=== PATIENT | female | born 1945 | race Caucasian/White ===

== ENCOUNTER → 2017-11-09 18:47 | Outpatient (REF) | payer MEDICARE, OTHER, SELFPAY | LOC: LAB 18:47 | PROVIDERS: Visit Provider Dermatology | DX: L08.9 Local infection of the skin and subcutaneous tissue, unspecified (principal) | CPT/HCPCS: 87070; 87075; 87077; 87147; 87186; 87205 ==

== ENCOUNTER 2018-11-27 10:28 | Emergency (ER) | payer MEDICARE, OTHER, SELFPAY ==
--- NOTE | 2018-11-27 10:43 | ED_ITS ---
HPI - Neuro Symptoms/Deficit General Chief Complaint: Neuro Symptoms/Deficit Stated Complaint: confused,slurring words,hallucinations Time Seen by Provider: 11/27/18 10:40 Source: patient Mode of arrival: Ambulatory Limitations: no limitations History of Present Illness HPI Narrative: Patient is 72-year-old female with history of kidney transplant and diabetes and dementia presenting with confusion. She was recently admitted to [facility] with UTI. Daughter states that those symptoms was resolved. However last 3 days she seems more confused she is definitely hallucinating more. She has not had any fever. She is having frequent follow she has a large contusion over her left breast. Patient currently denies any pain her speech is clear. Daughter states that her speech has been off and on s lurred. Not currently on any blood thinners. Onset (ago): day(s) (3) Timing confirmed by: family member (Daughter) Related Data Home Medications Medication Instructions Recorded Confirmed Lantus U-100 Insulin 30 unit SQ BID #0 10/19/12 11/27/18 acetaminophen 325 mg PO PRN PRN #0 10/19/12 11/27/18 aspirin 81 mg PO DAILY #0 10/19/12 11/27/18 calcium carbonate 500 mg PO TID #0 10/19/12 11/27/18 esomeprazole magnesium [Nexium] 20 mg PO BEDTIME #0 10/19/12 11/27/18 niacin 1,000 mg PO BEDTIME #0 10/19/12 11/27/18 nitrofurantoin macrocrystal 50 mg PO DAILY #0 10/19/12 11/27/18 prednisone 5 mg PO DAILY #0 10/19/12 11/27/18 tacrolimus [Prograf] 2 mg PO BID #0 10/19/12 11/27/18 cefdinir 300 mg PO BID 11/27/18 11/27/18 cholecalciferol (vitamin D3) 1,000 unit PO DAILY 11/27/18 11/27/18 [Vitamin D3] empagliflozin [Jardiance] 10 mg PO DAILY 11/27/18 11/27/18 furosemide 20 mg PO BID 11/27/18 11/27/18 icosapent ethyl [Vascepa] 1 g PO BID 11/27/18 11/27/18 insulin lispro [Humalog KwikPen 0 unit SUBCUT PRN PRN 11/27/18 11/27/18 Insulin] levothyroxine 25 mcg PO DAILY 11/27/18 11/27/18 metoprolol succinate 50 mg PO BID 11/27/18 11/27/18 oxycodone [OxyContin] 10 mg PO Q12H PRN 11/27/18 11/27/18 pravastatin 20 mg PO DAILY 11/27/18 11/27/18 Allergies Allergy/AdvReac Type Severity Reaction Status Date / Time verapamil [VERAPAMIL] Allergy Intermediate RHADOMYOLYS Verified 11/27/18 11:45 IS methadone [METHADONE] Allergy Mild N/V Verified 11/27/18 11:45 propoxyphene [PROPOXYPHENE] Allergy Mild N/V Verified 11/27/18 11:45 Review of Systems Review of Systems ROS Unobtainable: All systems reviewed & are unremarkable except as noted in HPI and below Constitutional Constitutional: Denies chills, Denies fever(s), Reports frequent falls, Denies lethargy and Denies weakness Eyes Eyes: Denies change in vision, Denies eye discharge, Denies irritation and Denies loss of vision Cardiovascular Cardiovascular: Denies dyspnea and Denies dyspnea on exertion Respiratory Respiratory: Denies cough, Denies dyspnea, Denies dyspnea on exertion and Denies wheezing Gastrointestinal Gastrointestinal: Denies abdominal pain, Denies change in bowel habits, Denies diarrhea, Denies nausea and Denies vomiting Genitourinary Genitourinary: Denies hematuria, Denies flank pain, Denies urinary incontinence and Denies urinary urgency Musculoskeletal Musculoskeletal: Denies back pain, Denies muscle weakness, Denies numbness and Denies tingling Integumentary/Breasts Skin/Breast: Reports rash (previous cellulitis, now right leg some redness) Neurologic Neurologic: Reports as per HPI, Reports confusion, Reports frequent falls, Denies loss of vision, Denies numbness, Denies tingling and Denies weakness Psychiatric Psychiatric: Reports confusion Allergic/Immunologic Allergic/Immunologic: Denies wheezing [facility] Medical History Diabetes (Acute) Surgical History Kidney transplant recipient (Acute) Social History Smoking Status: Never smoker Social History Smoking Status: Never smoker Exam Initial Vital Signs Initial Vital Signs: Vital Signs Temperature 98.0 F 11/27/18 10:45 Pulse Rate 64 11/27/18 10:45 Respiratory Rate 14 11/27/18 10:45 Blood Pressure 125/67 11/27/18 10:45 Pulse Oximetry 100 11/27/18 10:45 GENERAL: Alert pleasant well-appearing female HEENT: Head atraumatic,EOMI, pupils reactive, face symmetric, moist mucous membranes CARDIOVASCULAR: Regular rate and rhythm without murmurs, rubs or gallops. RESPIRATORY: Breath sounds equal bilaterally, no wheezes rales or rhonchi. ABDOMEN: Soft, nontender. Normoactive bowel sounds all 4 quadrants. No guarding or rebound. EXTREMITIES: Normal range of motion, no clubbing or edema. Neurovascularly intact NEUROLOGICAL: Alert and oriented x person and place.Normal gait and speech. Cranial nerves II through XII grossly intact. Good [id number], good [id number], strength equal bilaterally, no dysarthria or aphasia, sensation in tact to soft touch bilaterally, no visual changes, no facial droop SKIN: Minimal erythema 100 on right leg no streaking, bullae noticed on the left anterior العلي Course Orders Ordered: ED Orders 11/27/18 10:43 EKG-12 Lead Routine 11/27/18 11:00 Complete Blood Count AUTO DIFF Stat 11/27/18 11:01 CT head/brain wo con Stat 11/27/18 11:02 XR chest 1V Stat 11/27/18 11:03 Partial Thromboplastin Time Stat Prothrombin Time INR Stat 11/27/18 11:35 Acetaminophen Stat Comprehensive Metabolic Panel Stat Ethanol (ETOH) Stat Lactate (Lactic Acid) Stat Salicylate Stat Thyroid Stimulating Hormone Stat Troponin & CK Cardiac Panel Stat 11/27/18 12:00 Urine Culture Stat Urine Drug Screen, Rapid Stat 11/27/18 12:10 Blood Culture Stat 11/27/18 13:58 Glucose Stat Discontinued Medications Sodium Chloride (Normal Saline 0.9%) 1,000 mls @ 150 mls/hr IV CONT HUEY Last Infusion: 11/27/18 14:42 Dose: 0 mls/hr Documented by: SYLSENElvira Admin: 11/27/18 11:46 Dose: 150 mls/hr Documented by: MEENAKSHI Insulin Human Regular (Humulin R) 10 unit SUBCUT NOW ONE Stop: 11/27/18 12:34 Last Admin: 11/27/18 13:09 Dose: 10 unit Documented by: MEENAKSHI Cosigned by: BRET Vital Signs Vital signs: Vital Signs - 8 hr 11/27/18 10:45 11/27/18 12:21 11/27/18 13:33 Temperature 98.0 F Pulse Rate 64 59 L 55 L Respiratory Rate 14 16 13 Blood Pressure 125/67 Blood Pressure [Left Arm] 130/56 L 136/54 L Pulse Oximetry 100 100 96 11/27/18 14:31 Temperature Pulse Rate 57 L Respiratory Rate 15 Blood Pressure Blood Pressure [Left Arm] 146/56 H Pulse Oximetry 100 MDM - Neuro Symptoms/Deficit Medical Records Attestation: I reviewed the patient's medical records. Lab Data Attestation: I reviewed the patient's lab results. Lab results narrative: anion gap 17 Result diagrams: 11/27/18 11:00 11/27/18 13:58 Labs: Lab Results 11/27/18 11/27/18 11/27/18 Range/Units 11:00 11:03 11:35 WBC 11.4 H (4.5-11.0) X10^3/uL RBC 4.03 (4.0-5.2) X10^6/uL Hgb 12.9 (12.0-16.0) g/dL Hct 39.2 (36-46) % MCV 97.4 (80-100) fL MCH 31.9 (26-34) PG MCHC 32.8 (30-36) % RDW 16.9 H (11.6-14.8) % Plt Count 90 L (150-400) X10^3/uL Neut % (Auto) 85.7 H (50-75) % Lymph % (Auto) 9.9 L (25-40) % [place] % (Auto) 4.0 (3-14) % Eos % (Auto) 0.2 L (2-4) % Baso % (Auto) 0.2 (0-2) % Neut # (Auto) 9800 H (5854-1985) /uL Lymph # (Auto) 1100 (7421-4418) /uL [place] # (Auto) 500 (0-900) /uL Eos # (Auto) 0 (0-450) /uL Baso # (Auto) 0 (0-100) /uL PT 12.7 (10.1-12.7) SECONDS INR 1.1 (0.9-1.3) APTT 30 (26.4-36.2) SECONDS Sodium 130 L (137-145) mmol/L Potassium 4.4 (3.4-5.1) mmol/L Chloride 93 L (98-107) mmol/L Carbon Dioxide 23 (22-32) mmol/L BUN 56 H (7-17) mg/dL Creatinine 2.10 H (0.52-1.04) mg/dL Estimated GFR 23.2 L (>60) mL/min BUN/Creatinine Ratio 26.7 H (6-22) Glucose 608 H* (80-110) mg/dL Lactate (0.7-2.1) mmol/L Calcium 9.3 (8.4-10.2) mg/dL Total Bilirubin 1.6 H (0.2-1.3) mg/dL AST 37 H (14-36) IU/L ALT 229 H (9-52) IU/L Alkaline Phosphatase 120 (38-126) U/L Total Creatine Kinase (30-135) U/L CK-MB (CK-2) CK-MB (CK-2) Rel Index Troponin I (0.01-0.034) ng/mL Total Protein 6.1 L (6.3-8.2) g/dL Albumin 3.2 L (3.5-5.0) g/dL Globulin 2.9 (1.7-4.1) g/dL Albumin/Globulin Ratio 1.1 (1.0-2.8) TSH (0.47-4.68) uIU/mL Salicylates 2.3 (<20) mg/dL Urine Opiates Screen (Negative) Ur Oxycodone Screen (Negative) Urine Methadone Screen (Negative) Acetaminophen < 10 L (10-30) ug/mL Ur Barbiturates Screen (Negative) U Tricyclic Antidepress (Negative) Ur Phencyclidine Scrn (Negative) Ur Amphetamines Screen (Negative) U Methamphetamines Scrn (Negative) Ur MDMA Scrn (Ecstasy) (Negative) U Benzodiazepines Scrn (Negative) Urine Cocaine Screen (Negative) U Marijuana (THC) Screen (Negative) Ethyl Alcohol < 10 ( - 10) mg/dL 11/27/18 11/27/18 11/27/18 Range/Units 11:35 11:35 11:35 WBC (4.5-11.0) X10^3/uL RBC (4.0-5.2) X10^6/uL Hgb (12.0-16.0) g/dL Hct (36-46) % MCV (80-100) fL MCH (26-34) PG MCHC (30-36) % RDW (11.6-14.8) % Plt Count (150-400) X10^3/uL Neut % (Auto) (50-75) % Lymph % (Auto) (25-40) % [place] % (Auto) (3-14) % Eos % (Auto) (2-4) % Baso % (Auto) (0-2) % Neut # (Auto) (8468-6600) /uL Lymph # (Auto) (1894-2000) /uL [place] # (Auto) (0-900) /uL Eos # (Auto) (0-450) /uL Baso # (Auto) (0-100) /uL PT (10.1-12.7) SECONDS INR (0.9-1.3) APTT (26.4-36.2) SECONDS Sodium (137-145) mmol/L Potassium (3.4-5.1) mmol/L Chloride (98-107) mmol/L Carbon Dioxide (22-32) mmol/L BUN (7-17) mg/dL Creatinine (0.52-1.04) mg/dL Estimated GFR (>60) mL/min BUN/Creatinine Ratio (6-22) Glucose (80-110) mg/dL Lactate 1.8 (0.7-2.1) mmol/L Calcium (8.4-10.2) mg/dL Total Bilirubin (0.2-1.3) mg/dL AST (14-36) IU/L ALT (9-52) IU/L Alkaline Phosphatase (38-126) U/L Total Creatine Kinase 64 (30-135) U/L CK-MB (CK-2) TNP CK-MB (CK-2) Rel Index TNP Troponin I 0.024 (0.01-0.034) ng/mL Total Protein (6.3-8.2) g/dL Albumin (3.5-5.0) g/dL Globulin (1.7-4.1) g/dL Albumin/Globulin Ratio (1.0-2.8) TSH 3.14 (0.47-4.68) uIU/mL Salicylates (<20) mg/dL Urine Opiates Screen (Negative) Ur Oxycodone Screen (Negative) Urine Methadone Screen (Negative) Acetaminophen (10-30) ug/mL Ur Barbiturates Screen (Negative) U Tricyclic Antidepress (Negative) Ur Phencyclidine Scrn (Negative) Ur Amphetamines Screen (Negative) U Methamphetamines Scrn (Negative) Ur MDMA Scrn (Ecstasy) (Negative) U Benzodiazepines Scrn (Negative) Urine Cocaine Screen (Negative) U Marijuana (THC) Screen (Negative) Ethyl Alcohol ( - 10) mg/dL 11/27/18 11/27/18 Range/Units 12:00 13:58 WBC (4.5-11.0) X10^3/uL RBC (4.0-5.2) X10^6/uL Hgb (12.0-16.0) g/dL Hct (36-46) % MCV (80-100) fL MCH (26-34) PG MCHC (30-36) % RDW (11.6-14.8) % Plt Count (150-400) X10^3/uL Neut % (Auto) (50-75) % Lymph % (Auto) (25-40) % [place] % (Auto) (3-14) % Eos % (Auto) (2-4) % Baso % (Auto) (0-2) % Neut # (Auto) (0717-8524) /uL Lymph # (Auto) (8938-7165) /uL [place] # (Auto) (0-900) /uL Eos # (Auto) (0-450) /uL Baso # (Auto) (0-100) /uL PT (10.1-12.7) SECONDS INR (0.9-1.3) APTT (26.4-36.2) SECONDS Sodium (137-145) mmol/L Potassium (3.4-5.1) mmol/L Chloride (98-107) mmol/L Carbon Dioxide (22-32) mmol/L BUN (7-17) mg/dL Creatinine (0.52-1.04) mg/dL Estimated GFR (>60) mL/min BUN/Creatinine Ratio (6-22) Glucose 560 H* (80-110) mg/dL Lactate (0.7-2.1) mmol/L Calcium (8.4-10.2) mg/dL Total Bilirubin (0.2-1.3) mg/dL AST (14-36) IU/L ALT (9-52) IU/L Alkaline Phosphatase (38-126) U/L Total Creatine Kinase (30-135) U/L CK-MB (CK-2) CK-MB (CK-2) Rel Index Troponin I (0.01-0.034) ng/mL Total Protein (6.3-8.2) g/dL Albumin (3.5-5.0) g/dL Globulin (1.7-4.1) g/dL Albumin/Globulin Ratio (1.0-2.8) TSH (0.47-4.68) uIU/mL Salicylates (<20) mg/dL Urine Opiates Screen Negative (Negative) Ur Oxycodone Screen Positive H (Negative) Urine Methadone Screen Negative (Negative) Acetaminophen (10-30) ug/mL Ur Barbiturates Screen Negative (Negative) U Tricyclic Antidepress Negative (Negative) Ur Phencyclidine Scrn Negative (Negative) Ur Amphetamines Screen Negative (Negative) U Methamphetamines Scrn Negative (Negative) Ur MDMA Scrn (Ecstasy) Negative (Negative) U Benzodiazepines Scrn Negative (Negative) Urine Cocaine Screen Negative (Negative) U Marijuana (THC) Screen Negative (Negative) Ethyl Alcohol ( - 10) mg/dL Urine Dip Bedside Urine Glucose 1000 mg/dl Bedside Urine Bilirubin - Negative Bedside Urine Ketone - Negative Urine Specific [place] 1.010 Bedside Urine Occult Blood +/- Bedside Urine pH 5.5 Bedside Urine Protein +/- 15 Bedside Urine Urobilinogen - Negative Bedside Urine Nitrite - Negative Bedside Urine Leukocytes - Negative Esterase Imaging Data Chest x-ray: Radiologist's impression: PROCEDURE: XR CHEST 1V INDICATIONS: confusion TECHNIQUE: One view of the chest was acquired. COMPARISON: [facility], , CHEST 1 VIEW, 06/13/2014, 13:55. FINDINGS: Surgical changes and devices: Multiple surgical clips in the right axilla and right breast. Lungs and pleura: Lungs are clear. No pleural effusions or pneumothorax. Mediastinum: Mediastinal contours appear normal. Heart size is mildly increased. Bones and chest wall: No suspicious bony lesions. Overlying soft tissues appear unremarkable. IMPRESSION: Mild cardiomegaly. Dictated by: Farooq Cook M.D. on 11/27/2018 at 11:26 ECG Data Attestation: I personally reviewed and interpreted this ECG as follows: Prior ECG tracings: not available for review Interpretation: Normal sinus rhythm rate [address] changes no T-wave inversions no Q-waves no priors to compare MDM Narrative Medical decision making narrative: The patient has minimally elevated anion gap but no signs or symptoms of DKA. She has elevated glucose and hyperglycemia likely from uncontrolled diabetes. At this time no sign of infection head CT is negative. No indication for admission. She is given some fluid and insulin subcu. Repeat glucose is minimally improved. A suspect that she is chronically hyperglycemic although her hyperglycemia may be causing some of her symptoms. Discharge Plan Departure Patient Disposition: Home Clinical Impression: Hyperglycemia Discharge Date/Time: 11/27/18 14:42 Instructions: DI for Diabetes Type 2 Activity Restrictions/Additional Instructions: *You have been diagnosed with hyperglycemia *What to do: Uncontrolled diabetes can lead to elevated blood sugars and can attribute to confusion. It is recommended that you control blood sugars with medications and take them as prescribed. You may need adjustment in her medications please discuss this with your primary care provider before making any changes *Continue to take medications as directed *Follow up with your primary care provider in 2-3 days *Return to ER if you should have increased confusion, weakness, difficulty speaking, fever or any new, worsening or concerning symptoms Prescriptions: No Action acetaminophen 325 mg Tablet 325 mg PO PRN PRN (Reason: pain) Qty: 0 RF: 0 Lantus U-100 Insulin 100 UNIT/1 ML solution 30 unit SQ BID Qty: 0 RF: 0 aspirin 81 MG tablet,delayed release (DR/EC) 81 mg PO DAILY Qty: 0 RF: 0 calcium carbonate 500 mg calcium (1,250 mg) Tablet 500 mg PO TID Qty: 0 RF: 0 tacrolimus [Prograf] 1 MG capsule 2 mg PO BID Qty: 0 RF: 0 esomeprazole magnesium [Nexium] 20 mg Capsule,Delayed Release(Dr/Ec) 20 mg PO BEDTIME Qty: 0 RF: 0 niacin 1,000 mg Tablet Extended Release 1,000 mg PO BEDTIME Qty: 0 RF: 0 nitrofurantoin macrocrystal 50 MG capsule 50 mg PO DAILY Qty: 0 RF: 0 prednisone 5 MG tablet 5 mg PO DAILY Qty: 0 RF: 0 metoprolol succinate 50 mg tablet extended release 24 hr 50 mg PO BID RF: 0 levothyroxine 25 mcg tablet 25 mcg PO DAILY RF: 0 pravastatin 20 mg tablet 20 mg PO DAILY RF: 0 furosemide 20 mg tablet 20 mg PO BID RF: 0 cefdinir 300 mg capsule 300 mg PO BID RF: 0 insulin lispro [Humalog KwikPen Insulin] 100 unit/mL insulin pen 0 unit SUBCUT PRN PRN (Reason: blood sugar) RF: 0 Vascepa 1 gram capsule 1 g PO BID RF: 0 Jardiance 10 mg tablet 10 mg PO DAILY RF: 0 oxycodone [OxyContin] 10 mg tablet,oral only,ext.rel.12 hr 10 mg PO Q12H PRN (Reason: Pain, Severe) RF: 0 cholecalciferol (vitamin D3) [Vitamin D3] 1,000 unit Capsule 1,000 unit PO DAILY RF: 0 Referrals: Ary Denton PA-C [Primary Care Provider] -
[2018-11-27 10:45] VITALS: BP 125/67; PULSE 64; RESP 14; TEMP 36.7; O2SAT 100
--- NOTE | 2018-11-27 11:01 | DI.CT.S_ITS ---
PROCEDURE: CT HEAD/BRAIN WO CON INDICATIONS: frequent falls and confusion TECHNIQUE: Noncontrast 4.5 mm thick angled axial sections acquired from the foramen magnum to the vertex, with coronal and sagittal reformats. For radiation dose reduction, the following was used: automated exposure control, adjustment of mA and/or kV according to patient size. COMPARISON: [facility], MR, MR BRAIN WITHOUT CONTRAST, 11/14/2018, 14:07. FINDINGS: Image quality: Excellent. CSF spaces: Basal cisterns are patent. No extra-axial fluid collections. The ventricles are symmetric in size and shape. Brain: No intracranial bleeds or masses. Small chronic bilateral basal ganglia infarcts are present, as before. There is cerebral volume loss for age, with resultant ventricular and sulcal prominence. There are periventricular and deep white matter chronic small vessel ischemic changes. There is intracranial internal carotid artery atherosclerosis. Skull and face: Calvarium and visualized facial bones appear intact, without suspicious lesions. Sinuses: Visualized sinuses and mastoids are clear. IMPRESSION: 1. No acute intracranial abnormality. 2. Volume loss and small vessel ischemic disease. 3. Small chronic bilateral basal ganglia infarcts. Dictated by: Javier Holcomb M.D. on 11/27/2018 at 11:19 Approved by: Javier Holcomb M.D. on 11/27/2018 at 11:20
--- NOTE | 2018-11-27 11:02 | DI.RAD.S_ITS ---
PROCEDURE: XR CHEST 1V INDICATIONS: confusion TECHNIQUE: One view of the chest was acquired. COMPARISON: [facility], , CHEST 1 VIEW, 06/13/2014, 13:55. FINDINGS: Surgical changes and devices: Multiple surgical clips in the right axilla and right breast. Lungs and pleura: Lungs are clear. No pleural effusions or pneumothorax. Mediastinum: Mediastinal contours appear normal. Heart size is mildly increased. Bones and chest wall: No suspicious bony lesions. Overlying soft tissues appear unremarkable. IMPRESSION: Mild cardiomegaly. Dictated by: Farooq Cook M.D. on 11/27/2018 at 11:26 Approved by: Farooq Cook M.D. on 11/27/2018 at 11:27
--- NOTE | 2018-11-27 11:12 | PC.NURSE ---
daughter reports, pt with increase in confusion, +hallucinations,+slurred speech, the last 3 days, also has hx of dementia. just dc from [facility] on the . denies fever,chills, denies nausea or vomiting. pt able to make urine. also daughter concern for cellulitis , right lower leg. reports, pt with fall x3 in the last month. noted echymosis bluish/purple left breast.
[2018-11-27 11:15] LABS: Add Manual Diff / Slide Review NO; Basophils Absolute Auto 0 /uL (0-100); Basophils Percent Auto 0.2 % (0-2); Eosinophils Absolute Auto 0 /uL (0-450); Eosinophils Percent Auto 0.2 % (2-4); Hematocrit 39.2 % (36-46); Hemoglobin 12.9 g/dL (12.0-16.0); Lymphocytes Absolute Auto 1100 /uL (1100-4500); Lymphocytes Percent Auto 9.9 % (25-40); Mean Corpuscular HGB Conc 32.8 % (30-36); Mean Corpuscular Hemoglobin 31.9 PG (26-34); Mean Corpuscular Volume 97.4 fL (80-100); Monocytes Absolute Auto 500 /uL (0-900); Neutrophils Absolute Auto 9800 /uL (1500-7000); Neutrophils Percent Auto 85.7 % (50-75); Platelet Count 90 X10^3/uL (150-400); Red Blood Cell Count 4.03 X10^6/uL (4.0-5.2); Red Cell Distribution Width 16.9 % (11.6-14.8); White Blood Cell Count 11.4 X10^3/uL (4.5-11.0)
[2018-11-27 11:21] LABS: INR 1.1 (0.9-1.3); Prothrombin Time 12.7 SECONDS (10.1-12.7)
[2018-11-27 11:23] LABS: PTT Partial Thromboplastin Tim 30 SECONDS (26.4-36.2)
[2018-11-27] MEDS: SODIUM CHLORIDE 0.9% 1,000 ML 150 ML IV (11:46)
[2018-11-27 12:01] LABS: Creatine Kinase 64 U/L (30-135)
[2018-11-27 12:02] LABS: Lactate (Lactic Acid) 1.8 mmol/L (0.7-2.1)
[2018-11-27 12:03] LABS: Acetaminophen < 10 ug/mL (10-30); Alanine Aminotransferase 229 IU/L (9-52); Albumin 3.2 g/dL (3.5-5.0); Albumin Globulin Ratio 1.1 (1.0-2.8); Alkaline Phosphatase 120 U/L (38-126); Aspartate Aminotransferase 37 IU/L (14-36); BUN Creatinine Ratio 26.7 (6-22); Bilirubin Total 1.6 mg/dL (0.2-1.3); Blood Urea Nitrogen 56 mg/dL (7-17); Calcium 9.3 mg/dL (8.4-10.2); Carbon Dioxide 23 mmol/L (22-32); Chloride 93 mmol/L (98-107); Estimated Glomerular Filt Rate 23.2 mL/min (>60); Ethanol (ETOH) < 10 mg/dL; Globulin 2.9 g/dL (1.7-4.1); HEMOLYSIS < 15 (0-50); Potassium 4.4 mmol/L (3.4-5.1); Salicylate 2.3 mg/dL (<20); Sodium 130 mmol/L (137-145); Total Protein 6.1 g/dL (6.3-8.2)
[2018-11-27 12:06] LABS: Glucose 608 mg/dL (80-110)
[2018-11-27 12:11] LABS: Urine Amphetamines Negative (Negative); Urine Barbiturates Negative (Negative); Urine Benzodiazepines Negative (Negative); Urine Cocaine Negative (Negative); Urine MDMA Negative (Negative); Urine Methadone Negative (Negative); Urine Methamphetamines Negative (Negative); Urine Morphine/Opi cutoff 2000 Negative (Negative); Urine Oxycodone Positive (Negative); Urine Phencyclidine Negative (Negative); Urine Tetrahydrocannabinol Negative (Negative); Urine Tricyclic Antidepressant Negative (Negative)
[2018-11-27 12:14] LABS: Troponin I 0.024 ng/mL (0.01-0.034)
[2018-11-27 12:21] VITALS: BP 130/56; PULSE 59; RESP 16; O2SAT 100
[2018-11-27 12:36] LABS: Thyroid Stimulating Hormone 3.14 uIU/mL (0.47-4.68)
[2018-11-27] MEDS: INSULIN REGULAR 100 UNIT/ML 3 ML VIAL 10 UNIT SUBCUT (13:09)
[2018-11-27 13:33] VITALS: BP 136/54; PULSE 55; RESP 13; O2SAT 96
[2018-11-27 14:31] VITALS: BP 146/56; PULSE 57; RESP 15; O2SAT 100
[2018-11-27 14:32] LABS: Glucose 560 mg/dL (80-110)
== END 2018-11-27 14:42 | disposition home or self-care (01) ==
PROVIDERS: Emergency Provider Emergency Medicine; PCP Physician Assistant
DX: R73.9 Hyperglycemia, unspecified (principal); R41.0 Disorientation, unspecified; R47.81 Slurred speech
CPT/HCPCS: 36415; 70450; 71045; 80053; 80305; 80320; 80329; 81003; 82550; 82947; 82962; 83605; 84443; 84484; 85025; 85610; 85730; 87040; 87086; 93005; 93010; 96360; 96361; 99283; 99285; G0480

== ENCOUNTER 2019-09-29 17:06 | Inpatient (IN) | payer MEDICARE, OTHER, MEDICAID, SELFPAY ==
[2019-09-29] VITALS (15 sets, daily range): BP systolic 132–172; BP diastolic 53–84; PULSE 59–72; RESP 12–44; TEMP 36.2–36.8; O2SAT 95–100; BMI 33.4
--- NOTE | 2019-09-29 17:27 | DI.RAD.S_ITS ---
PROCEDURE: XR FOOT RT MIN 3V INDICATIONS: right foot infection, red/swollen + diabetic. TECHNIQUE: 3 views of the foot were acquired. COMPARISON: None. FINDINGS: Examination is limited by overlying material. Bones: Diffuse osteopenia. No fractures or dislocations. No suspicious bony lesions. Soft tissues: No tibiotalar joint effusion. Achilles tendon appears normal. IMPRESSION: Limited evaluation demonstrating no definite acute fracture nor osseous lesion. If symptoms and/or clinical suspicion for pathology persist, further assessment with repeat, or advanced imaging (e.g., CT, MRI, or bone scan) may be helpful for further assessment. Dictated by: Javier Holcomb M.D. on 09/29/2019 at 16:44 Approved by: Javier Holcomb M.D. on 09/29/2019 at 16:45
--- NOTE | 2019-09-29 17:36 | PC.NURSE ---
Pt is poor historian and does not know what meds she takes nor when she took them last. She states foot / toe has been swollen w/ wounds x a week at least. She denies fever / chills. 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 Right sided mastectomy. IV placed in right arm r/t fistula. BP cuff on left wrist. Unable to palpate pedal pulses. Doppler provided for provider. + Calf pain on right.
[2019-09-29 17:37] LABS: Add Manual Diff / Slide Review NO; Basophils Absolute Auto 100 /uL (0-100); Basophils Percent Auto 0.8 % (0-2); Eosinophils Absolute Auto 100 /uL (0-450); Eosinophils Percent Auto 1.2 % (2-4); Hematocrit 37.1 % (36-46); Hemoglobin 12.5 g/dL (12.0-16.0); Lymphocytes Absolute Auto 1100 /uL (1100-4500); Lymphocytes Percent Auto 14.5 % (25-40); Mean Corpuscular HGB Conc 33.8 % (30-36); Mean Corpuscular Hemoglobin 30.6 PG (26-34); Mean Corpuscular Volume 90.4 fL (80-100); Monocytes Absolute Auto 500 /uL (0-900); Monocytes Percent Auto 6.2 % (3-14); Neutrophils Absolute Auto 5800 /uL (1500-7000); Neutrophils Percent Auto 77.3 % (50-75); Platelet Count 91 X10^3/uL (150-400); Red Cell Distribution Width 15.4 % (11.6-14.8); White Blood Cell Count 7.6 X10^3/uL (4.5-11.0)
[2019-09-29 17:38] LABS: INR 1.1 (0.9-1.3); Prothrombin Time 12.8 SECONDS (10.1-12.7)
[2019-09-29 17:41] LABS: PTT Partial Thromboplastin Tim 30 SECONDS (26.4-36.2)
[2019-09-29 17:43] LABS: Alanine Aminotransferase 11 IU/L (<35); Albumin 3.5 g/dL (3.5-5.0); Albumin Globulin Ratio 1.1 (1.0-2.8); Alkaline Phosphatase 96 U/L (38-126); Aspartate Aminotransferase 19 IU/L (14-36); BUN Creatinine Ratio 18.8 (6-22); Bilirubin Total 1.8 mg/dL (0.2-1.3); Blood Urea Nitrogen 43 mg/dL (7-17); Calcium 9.3 mg/dL (8.4-10.2); Carbon Dioxide 30 mmol/L (22-32); Chloride 98 mmol/L (98-107); Estimated Glomerular Filt Rate 20.9 mL/min (>60); Globulin 3.3 g/dL (1.7-4.1); Glucose 321 mg/dL (80-110); HEMOLYSIS < 15 (0-50); Lactate (Lactic Acid) 1.3 mmol/L (0.7-2.1); Lipase 37 U/L (23-300); Potassium 4.2 mmol/L (3.4-5.1); Sodium 134 mmol/L (137-145); Total Protein 6.8 g/dL (6.3-8.2)
--- NOTE | 2019-09-29 17:43 | DI.US.S_ITS ---
PROCEDURE: US PERIPH VENOUS LOW EXTREM RT INDICATIONS: R leg swelling / sepsis / pain in calf TECHNIQUE: Real-time imaging, as well as color and pulse Doppler interrogation, were performed of the lower extremity deep veins from the inguinal ligament to the popliteal fossa. COMPARISON: None. FINDINGS: The common femoral, femoral and popliteal veins are normally compressible, and free of intraluminal thrombus. Color and pulse Doppler demonstrate normal phasic intraluminal flow. There is normal augmentation response to distal compression maneuver. IMPRESSION: No evidence of DVT in visualized right lower extremity veins. Dictated by: Bobby De M.D. on 09/29/2019 at 18:35 Approved by: Bobby De M.D. on 09/29/2019 at 18:37
--- NOTE | 2019-09-29 17:43 | DI.US.S_ITS ---
PROCEDURE: US RENAL TRANSPLANT INDICATIONS: R leg swelling / sepsis / pain in calf TECHNIQUE: Real time scanning was performed of the transplant kidney, followed by color and pulsed Doppler interrogation of the renal vessels. COMPARISON: None. FINDINGS: Polanco-scale imaging: Transplant kidney is 10.6 cm long; renal cortical thickness is 1.2 cm. No hydronephrosis. Renal cortex is normal in echogenicity. No perinephric fluid collections. Bilateral [place] kidneys are not well visualized on this study. Bladder: Bladder is not visualized due to patient position. IMPRESSION: Limited evaluation performed at bedside . Bilateral [place] kidneys and urinary bladder are not well visualized. Transplant kidney is seen in right lower quadrant and show no gross abnormality. Dictated by: Bobby De M.D. on 09/29/2019 at 18:37 Approved by: Bobby De M.D. on 09/29/2019 at 18:39
--- NOTE | 2019-09-29 18:17 | ED.WOUNDLAC ---
HPI - Wound/Laceration General Chief Complaint: Wound/Laceration Stated Complaint: right foot big toe, toe nail ripped back, wound Time Seen by Provider: 09/29/19 18:07 Source: patient and family Mode of arrival: Family Vehicle History of Present Illness HPI narrative: Patient is a 73-year-old female. On initial evaluation patient states she does not know why she is here in the emergency department. She states she does know she is in the hospital on [address]. Patient states that she thinks that her daughter called the paramedics to bring her into the emergency department. Patient states she does not know why she was brought here. She does state that her right foot hurts. I did talk with the patient's daughter over the phone who stated that the patient does have a history of ?Alzheimer's ?she states that the patient does live on her own however it is in a house that is on her daughter's property and so her daughter checks on her regularly. Her daughter stated that today she went to check on her mother. She made her mom take off her socks and noticed that her right foot is swollen and red and has a right great toenail injury. Patient's daughter states that the right foot had a very foul smell to it. She states that there were ?maggots ?on the right foot. She states they wash the foot prior to bring her here to the emergency department. Patient's daughter states that she did not arrive by paramedics but she did arrive by private vehicle. She is concerned about an infection. Related Data Home Medications Medication Instructions Recorded Confirmed Lantus U-100 Insulin 60 unit SQ DAILY #0 10/19/12 09/29/19 acetaminophen 325 mg PO PRN PRN #0 10/19/12 09/29/19 aspirin 81 mg PO DAILY #0 10/19/12 09/29/19 calcium carbonate 500 mg PO DAILY #0 10/19/12 09/29/19 esomeprazole magnesium [Nexium] 20 mg PO BEDTIME #0 10/19/12 09/29/19 nitrofurantoin macrocrystal 50 mg PO DAILY #0 10/19/12 09/29/19 prednisone 5 mg PO DAILY #0 10/19/12 09/29/19 tacrolimus [Prograf] 2 mg PO BID #0 10/19/12 09/29/19 empagliflozin [Jardiance] 10 mg PO DAILY 11/27/18 09/29/19 furosemide 20 mg PO BID 11/27/18 09/29/19 icosapent ethyl [Vascepa] 1 g PO BID 11/27/18 09/29/19 levothyroxine 25 mcg PO DAILY 11/27/18 09/29/19 pravastatin 20 mg PO DAILY 11/27/18 09/29/19 insulin lispro [Humalog U-100 20 unit SUBCUT DAILY 09/29/19 09/29/19 Insulin] metoprolol succinate 25 mg PO BID 09/29/19 09/29/19 oxycodone 5 mg PO TID PRN 09/29/19 09/29/19 oxycodone [OxyContin] 10 mg PO BEDTIME 09/29/19 09/29/19 sertraline 25 mg PO DAILY 09/29/19 09/29/19 Allergies Allergy/AdvReac Type Severity Reaction Status Date / Time verapamil [VERAPAMIL] Allergy Intermediate RHADOMYOLYS Verified 09/29/19 17:17 IS methadone [METHADONE] Allergy Mild N/V Verified 09/29/19 17:17 propoxyphene [PROPOXYPHENE] Allergy Mild N/V Verified 09/29/19 17:17 morphine Allergy Verified 09/29/19 17:17 Review of Systems Review of Systems Narrative: The positive review of systems here was provided by the patient's daughter. The patient only reports pain to the right foot. Constitutional Constitutional: Denies fever(s) Musculoskeletal Comments: Pain to the right foot, Integumentary/Breasts Comments: Redness and swelling to the right foot. Neurologic Neurologic: Denies behavioral changes Psychiatric Psychiatric: Denies behavioral changes Hematologic/Lymphatic Hematologic/Lymphatic: Denies easy bleeding and Denies easy bruising Patient History Medical History ISMAEL (acute kidney injury) (Acute) Cellulitis (Acute) Diabetes type 2, uncontrolled (Chronic) Diarrhea (Acute) Essential hypertension (Chronic) Hypertriglyceridemia (Chronic) Hypothyroid (Chronic) Surgical History H/O right mastectomy (Acute) Kidney transplant recipient (Chronic) Family History (Updated 09/29/19 @ 23:39 by VIKTOR Lujan) Father Old age Other Renal failure Social History household members: none Smoking Status: Never smoker Smoking Status: Never smoker alcohol intake frequency: 0-2 drinks per day Substance Use Type: does not use Exam Initial Vital Signs Initial Vital Signs: Vital Signs Temperature 98.2 F 09/29/19 17:12 Pulse Rate 70 09/29/19 17:12 Respiratory Rate 15 09/29/19 17:12 Blood Pressure 147/67 H 09/29/19 17:12 Pulse Oximetry 98 09/29/19 17:12 Const General: cooperative and comfortable HENMT Head: normal to inspection and normocephalic Resp Effort & Inspection: normal respiratory effort Auscultation: clear to auscultation bilaterally Cardio Rate: regular rate Rhythm: regular rhythm GI Inspection: non-distended Palpation: soft Skin Other: Patient has swelling to the right foot circumferentially up to the mid calf. Redness anteriorly in the mid calf. Patient's right great toenail is bent backwards however this does not appear to be a new injury. There is a foul smell to the right foot. No open wounds noted. Neuro General: patient alert, patient awake and moves all extremities Extrem Other: Pain with movement of the right ankle. Psych Appearance: grossly normal and well kempt Course Orders Ordered: Acetaminophen (Tylenol) 650 mg PO Q6HR [facility] Last Admin: 09/29/19 23:49 Dose: Not Given Documented by: CATIE Aspirin (Aspirin Ec) 81 mg PO DAILY [facility] Dextrose (D50w) 25 gm IV PRN PRN PRN Reason: Hypoglycemia Docusate Sodium (Colace) 100 mg PO BID [facility] Last Admin: 09/29/19 22:46 Dose: 100 mg Documented by: LINETTE Heparin Sodium (Porcine) (Heparin) 5,000 unit SUBCUT BID [facility] Last Admin: 09/29/19 22:47 Dose: 5,000 unit Documented by: LINETTE Sodium Chloride (Normal Saline 0.9%) 1,000 mls @ 150 mls/hr IV CONT [facility] Last Admin: 09/29/19 22:47 Dose: 150 mls/hr Documented by: Infusion: 09/29/19 22:47 Dose: 150 mls/hr Documented by: Infusion: 09/29/19 21:45 Dose: 150 mls/hr Documented by: Admin: 09/29/19 20:12 Dose: 150 mls/hr Documented by: DARIA Vancomycin HCl/Dextrose (Vancomycin) 1,500 mg in 300 mls @ 150 mls/hr IV Q48H [facility] Ceftriaxone Sodium/Dextrose (Rocephin) 1 gm in 50 mls @ 100 mls/hr IV Q24H [facility] Insulin Aspart (Novolog Flexpen) 0 unit SUBCUT ACHS [facility]; Protocol Insulin Glargine (Lantus Solostar (Pen)) 60 unit SUBCUT 0800 [facility] Levothyroxine Sodium (Synthroid) 25 mcg PO QACBREAK [facility] Metoprolol Succinate (Toprol Xl) 25 mg PO BID [facility] Last Admin: 09/29/19 22:46 Dose: 25 mg Documented by: LINETTE Naloxone HCl (Narcan) 0.2 mg IV Q2MIN PRN PRN Reason: Opiate Reversal Non-Formulary Medication (Icosapent Ethyl [Vascepa]) 1 gram PO BID [facility] Last Admin: 09/29/19 22:41 Dose: Not Given Documented by: LINETTE Ondansetron HCl (Zofran) 4 mg IV Q6HR PRN PRN Reason: Nausea And Vomiting Oxycodone HCl (Percolone) 5 mg PO Q6HR PRN PRN Reason: Pain, Moderate (4-6) Pantoprazole Sodium (Protonix) 20 mg PO BEDTIME [facility] Last Admin: 09/29/19 22:46 Dose: 20 mg Documented by: LINETTE Pravastatin Sodium (Pravachol) 20 mg PO DAILY [facility] Prednisone (Deltasone) 5 mg PO DAILY [facility] Sertraline HCl (Zoloft) 25 mg PO DAILY [facility] Sodium Chloride (Normal Saline 0.9% Flush) 10 ml IV BID [facility] Last Admin: 09/29/19 22:48 Dose: 10 ml Documented by: LINETTE Tacrolimus (Prograf) 1 mg PO BID [facility] Last Admin: 09/29/19 22:41 Dose: Not Given Documented by: LINETTE Vancomycin HCl (Vancomycin Per Pharmacy) 1 request MISC NOW ONE Stop: 09/30/19 23:01 Discontinued Medications Vancomycin HCl (Vancomycin) 1,000 mg in 200 mls @ 200 mls/hr IV NOW ONE Stop: 09/29/19 20:22 Last Infusion: 09/29/19 21:45 Dose: 0 mls/hr Documented by: Admin: 09/29/19 20:04 Dose: 200 mls/hr Documented by: DARIA Ceftriaxone Sodium/Dextrose (Rocephin) 1 gm in 50 mls @ 100 mls/hr IV NOW ONE Stop: 09/29/19 19:57 Last Infusion: 09/29/19 20:00 Dose: 0 mls/hr Documented by: Admin: 09/29/19 19:36 Dose: 100 mls/hr Documented by: DARIA Ceftriaxone Sodium/Dextrose (Rocephin) 1 gm in 50 mls @ 100 mls/hr IV Q24H [facility] Last Admin: 09/29/19 23:10 Dose: Not Given Documented by: OSWALDO Vancomycin HCl 500 mg/ Sodium (Chloride) 100 mls @ 100 mls/hr IV NOW ONE Stop: 09/29/19 23:44 Last Infusion: 09/30/19 00:47 Dose: 0 mls/hr Documented by: Admin: 09/29/19 23:46 Dose: 100 mls/hr Documented by: CATIE Vancomycin HCl (Vancomycin Per Pharmacy) 1 request MISC NOW ONE Stop: 09/29/19 23:56 Vital Signs Vital signs: Vital Signs - 8 hr 09/29/19 17:12 09/29/19 17:15 09/29/19 17:30 Temperature 98.2 F Pulse Rate 70 72 59 L Respiratory Rate 15 Blood Pressure 147/67 H 147/67 H 132/63 Pulse Oximetry 98 97 96 MDM - Wound/Laceration Lab Data Attestation: I reviewed the patient's lab results. Result diagrams: 09/29/19 17:25 09/29/19 17:25 Labs: Lab Results 09/29/19 09/29/19 09/29/19 Range/Units 17:25 17:25 17:25 WBC 7.6 (4.5-11.0) X10^3/uL RBC 4.10 (4.0-5.2) X10^6/uL Hgb 12.5 (12.0-16.0) g/dL Hct 37.1 (36-46) % MCV 90.4 (80-100) fL MCH 30.6 (26-34) PG MCHC 33.8 (30-36) % RDW 15.4 H (11.6-14.8) % Plt Count 91 L (150-400) X10^3/uL Neut % (Auto) 77.3 H (50-75) % Lymph % (Auto) 14.5 L (25-40) % Ransom % (Auto) 6.2 (3-14) % Eos % (Auto) 1.2 L (2-4) % Baso % (Auto) 0.8 (0-2) % Neut # (Auto) 5800 (7963-5910) /uL Lymph # (Auto) 1100 (1206-5491) /uL Ransom # (Auto) 500 (0-900) /uL Eos # (Auto) 100 (0-450) /uL Baso # (Auto) 100 (0-100) /uL PT 12.8 H (10.1-12.7) SECONDS INR 1.1 (0.9-1.3) APTT 30 (26.4-36.2) SECONDS Sodium (137-145) mmol/L Potassium (3.4-5.1) mmol/L Chloride (98-107) mmol/L Carbon Dioxide (22-32) mmol/L BUN (7-17) mg/dL Creatinine (0.52-1.04) mg/dL Estimated GFR (>60) mL/min BUN/Creatinine Ratio (6-22) Glucose (80-110) mg/dL Hemoglobin A1c (4.0-6.0) % Lactate (0.7-2.1) mmol/L Calcium (8.4-10.2) mg/dL Total Bilirubin (0.2-1.3) mg/dL AST (14-36) IU/L ALT (<35) IU/L Alkaline Phosphatase (38-126) U/L Total Protein (6.3-8.2) g/dL Albumin (3.5-5.0) g/dL Globulin (1.7-4.1) g/dL Albumin/Globulin Ratio (1.0-2.8) Lipase (23-300) U/L Procalcitonin 0.24 (<0.5) ng/mL COVID-19 PCR (Negative) 09/29/19 09/29/19 09/29/19 Range/Units 17:25 17:25 17:25 WBC (4.5-11.0) X10^3/uL RBC (4.0-5.2) X10^6/uL Hgb (12.0-16.0) g/dL Hct (36-46) % MCV (80-100) fL MCH (26-34) PG MCHC (30-36) % RDW (11.6-14.8) % Plt Count (150-400) X10^3/uL Neut % (Auto) (50-75) % Lymph % (Auto) (25-40) % Ransom % (Auto) (3-14) % Eos % (Auto) (2-4) % Baso % (Auto) (0-2) % Neut # (Auto) (3857-7254) /uL Lymph # (Auto) (3840-8494) /uL Ransom # (Auto) (0-900) /uL Eos # (Auto) (0-450) /uL Baso # (Auto) (0-100) /uL PT (10.1-12.7) SECONDS INR (0.9-1.3) APTT (26.4-36.2) SECONDS Sodium 134 L (137-145) mmol/L Potassium 4.2 (3.4-5.1) mmol/L Chloride 98 (98-107) mmol/L Carbon Dioxide 30 (22-32) mmol/L BUN 43 H (7-17) mg/dL Creatinine 2.29 H (0.52-1.04) mg/dL Estimated GFR 20.9 L (>60) mL/min BUN/Creatinine Ratio 18.8 (6-22) Glucose 321 H (80-110) mg/dL Hemoglobin A1c 9.1 H (4.0-6.0) % Lactate 1.3 (0.7-2.1) mmol/L Calcium 9.3 (8.4-10.2) mg/dL Total Bilirubin 1.8 H (0.2-1.3) mg/dL AST 19 (14-36) IU/L ALT 11 (<35) IU/L Alkaline Phosphatase 96 (38-126) U/L Total Protein 6.8 (6.3-8.2) g/dL Albumin 3.5 (3.5-5.0) g/dL Globulin 3.3 (1.7-4.1) g/dL Albumin/Globulin Ratio 1.1 (1.0-2.8) Lipase 37 (23-300) U/L Procalcitonin (<0.5) ng/mL COVID-19 PCR (Negative) 09/29/19 Range/Units 20:20 WBC (4.5-11.0) X10^3/uL RBC (4.0-5.2) X10^6/uL Hgb (12.0-16.0) g/dL Hct (36-46) % MCV (80-100) fL MCH (26-34) PG MCHC (30-36) % RDW (11.6-14.8) % Plt Count (150-400) X10^3/uL Neut % (Auto) (50-75) % Lymph % (Auto) (25-40) % Ransom % (Auto) (3-14) % Eos % (Auto) (2-4) % Baso % (Auto) (0-2) % Neut # (Auto) (4189-0753) /uL Lymph # (Auto) (9000-7653) /uL Ransom # (Auto) (0-900) /uL Eos # (Auto) (0-450) /uL Baso # (Auto) (0-100) /uL PT (10.1-12.7) SECONDS INR (0.9-1.3) APTT (26.4-36.2) SECONDS Sodium (137-145) mmol/L Potassium (3.4-5.1) mmol/L Chloride (98-107) mmol/L Carbon Dioxide (22-32) mmol/L BUN (7-17) mg/dL Creatinine (0.52-1.04) mg/dL Estimated GFR (>60) mL/min BUN/Creatinine Ratio (6-22) Glucose (80-110) mg/dL Hemoglobin A1c (4.0-6.0) % Lactate (0.7-2.1) mmol/L Calcium (8.4-10.2) mg/dL Total Bilirubin (0.2-1.3) mg/dL AST (14-36) IU/L ALT (<35) IU/L Alkaline Phosphatase (38-126) U/L Total Protein (6.3-8.2) g/dL Albumin (3.5-5.0) g/dL Globulin (1.7-4.1) g/dL Albumin/Globulin Ratio (1.0-2.8) Lipase (23-300) U/L Procalcitonin (<0.5) ng/mL COVID-19 PCR Negative (Negative) Imaging Data Extremity x-ray #1: Radiologist's Impression: [address] [address] XRay Report Signed Patient: April Felix [facility]#: [id number] : [id number]:[id number] Age/Sex: 73 / FDate of Service: 09/29/19 Loc: ED Accession Number: [id number] Procedure: XR foot RT min 3V Ordering Provider: Josemanuel Abdi MD PROCEDURE: XR FOOT RT MIN 3V INDICATIONS: right foot infection, red/swollen + diabetic. TECHNIQUE: 3 views of the foot were acquired. COMPARISON: None. FINDINGS: Examination is limited by overlying material. Bones: Diffuse osteopenia. No fractures or dislocations. No suspicious bony lesions. Soft tissues: No tibiotalar joint effusion. Achilles tendon appears normal. IMPRESSION: Limited evaluation demonstrating no definite acute fracture nor osseous lesion. If symptoms and/or clinical suspicion for pathology persist, further assessment with repeat, or advanced imaging (e.g., CT, MRI, or bone scan) may be helpful for further assessment. Dictated by: Javier Holcomb M.D. on 09/29/2019 at 16:44 Approved by: Javier Holcomb M.D. on 09/29/2019 at 16:45 Renal ultrasound: Radiologist's Impression: [address] [address] Ultrasound Report Signed Patient: April Felix [facility]#: [id number] : [id number] Age/Sex: 73 / FDate of Service: 09/29/19 Loc: ED Accession Number: [id number] Procedure: US renal transplant Ordering Provider: Josemanuel Abdi MD PROCEDURE: US RENAL TRANSPLANT INDICATIONS: R leg swelling / sepsis / pain in calf TECHNIQUE: Real time scanning was performed of the transplant kidney, followed by color and pulsed Doppler interrogation of the renal vessels. COMPARISON: None. FINDINGS: Polanco-scale imaging: Transplant kidney is 10.6 cm long; renal cortical thickness is 1.2 cm. No hydronephrosis. Renal cortex is normal in echogenicity. No perinephric fluid collections. Bilateral gakona kidneys are not well visualized on this study. Bladder: Bladder is not visualized due to patient position. IMPRESSION: Limited evaluation performed at bedside . Bilateral gakona kidneys and urinary bladder are not well visualized. Transplant kidney is seen in right lower quadrant and show no gross abnormality. Dictated by: Bobby De M.D. on 09/29/2019 at 18:37 Approved by: Bobby De M.D. on 09/29/2019 at 18:39 US - DVT: Radiologist's Impression: [place] [address] Ultrasound Report Signed Patient: April Felix [facility]#: [id number] : 7Acct:[id number] Age/Sex: 73 / FDate of Service: 09/29/19 Loc: ED Accession Number: [id number] Procedure: US periph venous low extrem rt Ordering Provider: Josemanuel Abdi MD PROCEDURE: US PERIPH VENOUS LOW EXTREM RT INDICATIONS: R leg swelling / sepsis / pain in calf TECHNIQUE: Real-time imaging, as well as color and pulse Doppler interrogation, were performed of the lower extremity deep veins from the inguinal ligament to the popliteal fossa. COMPARISON: None. FINDINGS: The common femoral, femoral and popliteal veins are normally compressible, and free of intraluminal thrombus. Color and pulse Doppler demonstrate normal phasic intraluminal flow. There is normal augmentation response to distal compression maneuver. IMPRESSION: No evidence of DVT in visualized right lower extremity veins. Dictated by: Bobby De M.D. on 09/29/2019 at 18:35 Approved by: Bobby De M.D. on 09/29/2019 at 18:37 ECG Data Attestation: I personally reviewed and interpreted this ECG as follows: Prior ECG tracings: not available for review Interpretation: Sinus rhythm Left axis deviation Normal QRS Normal QTC No ST T wave changes MDM Narrative Medical decision making narrative: Patient does seem to be somewhat confused about why she is here although she does know where she is and the date. The patient's daughter who I spoke to on the phone thinks that the patient is at baseline with regard to her mental status. Her right foot does appear to have an infection despite the lack of leukocytosis. Antibiotics were administered. I did discuss the case with the on-call biomedical repair technician at [facility]. This was not the patient's biomedical repair technician however the individual on-call for the group. The biomedical repair technician stated that the patient's normal creatinine is in the 1.0-1.5 range. This does mean that the increase in creatinine in decrease in GFR today are not baseline for this patient. The biomedical repair technician recommended treating the infection and hydrating the patient and if the creatinine did not improve with these treatments he would be happy to accept the patient in transfer. I did discuss the case with ENRIQUE Nieto the [facility] provider who will admit for further evaluation and treatment. Discharge Plan Departure Patient Disposition: Admitted as Observation Clinical Impression: Diabetes, ISMAEL (acute kidney injury) Cellulitis Qualifiers: Site of cellulitis: extremity Site of cellulitis of extremity: lower extremity Laterality: right Qualified Code(s): L03.115 - Cellulitis of right lower limb Discharge Date/Time: 09/29/19 22:00 Referrals: Ary Denton PA-C [Primary Care Provider] - Admit Date/Time: 09/29/19 21:29 Admit Provider: Lisa Nieto
--- NOTE | 2019-09-29 18:28 | PC.NURSE ---
Spoke w/ daughter who states there were maggots and pus on right foot prior to her cleaning it before bringing pt to hospital.
[2019-09-29 19:11] LABS: Procalcitonin 0.24 ng/mL (<0.5)
[2019-09-29] MEDS: CEFTRIAXONE 1 GM/50 ML FROZ.PIGGY IV (19:36)
[2019-09-29] MEDS: VANCOMYCIN 1,000 MG/200 ML PIGGYBACK 200 MG IV (20:04)
[2019-09-29] MEDS: SODIUM CHLORIDE 0.9% 1,000 ML 150 ML IV ×2 (20:12→22:47)
[2019-09-29 21:41] LABS: COVID19 -Nasal RAPID Negative (Negative)
[2019-09-29 21:58] LABS: Hemoglobin A1C% w Est Avg Glu 9.1 % (4.0-6.0)
--- NOTE | 2019-09-29 22:45 | PC.NURSE ---
Notified MARIIA Dutton to bring in anti-rejection medications in, Jennifer stated she would have them brought in tomorrow morning (09/29).
[2019-09-29] MEDS: METOPROLOL ER 25 MG TABLET PO (22:46)
[2019-09-29] MEDS: PANTOPRAZOLE 20 MG TABLET PO (22:46)
[2019-09-29] MEDS: DOCUSATE 100 MG CAPSULE PO (22:46)
[2019-09-29] MEDS: HEPARIN 5,000 UNIT/ML VIAL 5000 UNIT SUBCUT (22:47)
[2019-09-29] MEDS: SODIUM CHLORIDE 0.9% FLUSH 10 ML IV (22:48)
--- NOTE | 2019-09-29 22:55 | P.HP_ITS ---
History of Present Illness History of Present Illness Date Patient Seen: 09/29/19 Time Patient Seen: 22:00 Chief complaint: Cellulitis of the right great toe, ISMAEL Narrative: April Felix is a 73 y.o. female with a history of a right renal transplant, DM type 1, hypertension, hyperlipidemia and depression was brought in by her daughter with a wound on her right great toe. She reported complained of pain, and per the ED provider, the daughter stated there were maggots in her right great toe. Daughter reportedly cleaned up the wound and drove the patient here. Patient denies fever, sweats or chills, shortness of breath, nausea or vomiting, abdominal pain, dysurea, diarrhea or constipaton. While nursing was photographing her foot wounds she complained that her foot shakes, but is not able to identify any symptoms associated with this. She has a history of a right renal transplant and believes they left the old one in. 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 She has a director oracle database at [facility] who recommended we treat the cellulitis and to repeat her creatinine, bun and GFR in the am with the intent of transferring her if her creatinine does not improve overnight. Temp was 97.8? blood pressure 133/84, heart rate 69, respiratory rate 18, oxygen saturation of 100% on room air, weight 91.1, BMI 33.4. WBC 7.6, RBC 4.10, hemoglobin 12.5, hematocrit 37.1, platelet count 91, sodium 134, potassium 4.2, chloride 98, CO2 30, creatinine 2.29, BUN 43, GFR 20.9, glucose 321, her A1c was 9.1, lactate was normal, calcium 9.3, bilirubin 1.8, remaining liver enzymes were normal. COVID-19 was negative. Patient History Medical History (Updated 09/30/19 @ 00:09 by VIKTOR Lujan) ISMAEL (acute kidney injury) (Acute) Cellulitis (Acute) Diabetes type 2, uncontrolled (Chronic) Diarrhea (Acute) Essential hypertension (Chronic) Hypertriglyceridemia (Chronic) Hypothyroid (Chronic) Surgical History H/O right mastectomy (Acute) Kidney transplant recipient (Chronic) Family & Social History Family History (Updated 09/29/19 @ 23:39 by VIKTOR Lujan) Father Old age Other Renal failure Social History: household members none Prior Living Arrangements Mobile home Safety & Behavioral: Feels Safe in Current Yes Environment Been Physically Hurt or No Threatened By a Person Suicidal Ideation Description None Suicide Plan Description No Plan Tobacco & Substance use: Smoking Status Never smoker alcohol intake frequency 0-2 drinks per day Substance Use Type does not use Meds Home Medications and Allergies Home Medications Medication Instructions Recorded Confirmed Type Lantus U-100 Insulin 60 unit SQ DAILY #0 10/19/12 09/29/19 History acetaminophen 325 mg PO PRN PRN #0 10/19/12 09/29/19 History aspirin 81 mg PO DAILY #0 10/19/12 09/29/19 History calcium carbonate 500 mg PO DAILY #0 10/19/12 09/29/19 History esomeprazole magnesium [Nexium] 20 mg PO BEDTIME #0 10/19/12 09/29/19 History nitrofurantoin macrocrystal 50 mg PO DAILY #0 10/19/12 09/29/19 History prednisone 5 mg PO DAILY #0 10/19/12 09/29/19 History tacrolimus [Prograf] 2 mg PO BID #0 10/19/12 09/29/19 History empagliflozin [Jardiance] 10 mg PO DAILY 11/27/18 09/29/19 History furosemide 20 mg PO BID 11/27/18 09/29/19 History icosapent ethyl [Vascepa] 1 g PO BID 11/27/18 09/29/19 History levothyroxine 25 mcg PO DAILY 11/27/18 09/29/19 History pravastatin 20 mg PO DAILY 11/27/18 09/29/19 History insulin lispro [Humalog U-100 20 unit SUBCUT DAILY 09/29/19 09/29/19 History Insulin] metoprolol succinate 25 mg PO BID 09/29/19 09/29/19 History oxycodone 5 mg PO TID PRN 09/29/19 09/29/19 History oxycodone [OxyContin] 10 mg PO BEDTIME 09/29/19 09/29/19 History sertraline 25 mg PO DAILY 09/29/19 09/29/19 History Allergies Allergy/AdvReac Type Severity Reaction Status Date / Time verapamil [VERAPAMIL] Allergy Intermediate RHADOMYOLYS Verified 09/29/19 17:17 IS methadone [METHADONE] Allergy Mild N/V Verified 09/29/19 17:17 propoxyphene [PROPOXYPHENE] Allergy Mild N/V Verified 09/29/19 17:17 morphine Allergy Verified 09/29/19 17:17 Review of Systems Review of Systems ROS: Yes All systems reviewed with the patient and are negative except as otherwise documented Exam Vital Signs (past 8 hours): - 09/29/19 17:12 09/29/19 17:15 09/29/19 17:30 Temperature 98.2 F Pulse Rate 70 72 59 L Respiratory Rate 15 Blood Pressure 147/67 H 147/67 H 132/63 Pulse Oximetry 98 97 96 09/29/19 18:00 09/29/19 18:30 09/29/19 19:00 Temperature Pulse Rate 60 61 68 Respiratory Rate 12 44 H Blood Pressure Pulse Oximetry 95 97 100 09/29/19 19:30 09/29/19 19:45 09/29/19 19:47 Temperature 98.0 F Pulse Rate 65 65 67 Respiratory Rate 15 16 Blood Pressure 148/72 H 148/72 H Pulse Oximetry 95 98 98 09/29/19 20:30 09/29/19 21:30 09/29/19 22:00 Temperature 98.0 F 97.8 F Pulse Rate 66 65 69 Respiratory Rate 13 16 18 Blood Pressure 164/67 H 172/77 H 143/84 H Pulse Oximetry 99 99 100 09/29/19 22:46 Temperature Pulse Rate 69 Respiratory Rate Blood Pressure 143/84 H Pulse Oximetry Oxygen Delivery Method Room Air Narrative Exam Narrative: Gen: Alert, oriented, obese 73 y.o. female, appears older than stated age HEENT: normocephalic, atraumatic, conjunctiva clear, sclera non-icteric, oral mucosa pink and moist Neck: supple, full ROM, no JVD, trachea is midline Resp: Lungs CTA, non-labored breathing CV: RRR, no murmur or rubs Abd: soft, non-tender, normoactive BTs Skin: Her right great toe has a partially avulsed toenail with open losing and the sides of her toes are ulcerated and necrotic, multiple bruises on her arms and legs, presence of previously used fistulas on both arms Neuro: Alert and oriented X 4 w/no focal deficits. Speech clear and coherent. Extremities: Ambulatory with a walker, moves all 4 extremities, negative Scarlett?s sign Psyche: normal mood and affect. Objective Labs Result Diagrams: 09/29/19 17:25 09/29/19 17:25 Labs: Laboratory Results - last 24 hr 09/29/19 09/29/19 09/29/19 17:25 17:25 17:25 WBC 7.6 RBC 4.10 Hgb 12.5 Hct 37.1 MCV 90.4 MCH 30.6 MCHC 33.8 RDW 15.4 H Plt Count 91 L Neut % (Auto) 77.3 H Lymph % (Auto) 14.5 L [place] % (Auto) 6.2 Eos % (Auto) 1.2 L Baso % (Auto) 0.8 Neut # (Auto) 5800 Lymph # (Auto) 1100 [place] # (Auto) 500 Eos # (Auto) 100 Baso # (Auto) 100 PT 12.8 H INR 1.1 APTT 30 Sodium Potassium Chloride Carbon Dioxide BUN Creatinine Estimated GFR BUN/Creatinine Ratio Glucose Hemoglobin A1c Lactate Calcium Total Bilirubin AST ALT Alkaline Phosphatase Total Protein Albumin Globulin Albumin/Globulin Ratio Lipase Procalcitonin 0.24 COVID-19 PCR 09/29/19 09/29/19 09/29/19 17:25 17:25 17:25 WBC RBC Hgb Hct MCV MCH MCHC RDW Plt Count Neut % (Auto) Lymph % (Auto) [place] % (Auto) Eos % (Auto) Baso % (Auto) Neut # (Auto) Lymph # (Auto) [place] # (Auto) Eos # (Auto) Baso # (Auto) PT INR APTT Sodium 134 L Potassium 4.2 Chloride 98 Carbon Dioxide 30 BUN 43 H Creatinine 2.29 H Estimated GFR 20.9 L BUN/Creatinine Ratio 18.8 Glucose 321 H Hemoglobin A1c 9.1 H Lactate 1.3 Calcium 9.3 Total Bilirubin 1.8 H AST 19 ALT 11 Alkaline Phosphatase 96 Total Protein 6.8 Albumin 3.5 Globulin 3.3 Albumin/Globulin Ratio 1.1 Lipase 37 Procalcitonin COVID-19 PCR 09/29/19 20:20 WBC RBC Hgb Hct MCV MCH MCHC RDW Plt Count Neut % (Auto) Lymph % (Auto) [place] % (Auto) Eos % (Auto) Baso % (Auto) Neut # (Auto) Lymph # (Auto) [place] # (Auto) Eos # (Auto) Baso # (Auto) PT INR APTT Sodium Potassium Chloride Carbon Dioxide BUN Creatinine Estimated GFR BUN/Creatinine Ratio Glucose Hemoglobin A1c Lactate Calcium Total Bilirubin AST ALT Alkaline Phosphatase Total Protein Albumin Globulin Albumin/Globulin Ratio Lipase Procalcitonin COVID-19 PCR Negative Assessment & Plan Assessment & Plan narrative: April Felix will be admitted for antibiotic treatment and management of a righ t great toe infection and ulcer. She will also be closely monitored and treated for an acute on chronic kidney injury. Great right toe infection, acute, present on admission -she has initiated on IV ceftriaxone and IV Vanco, 1st dose given in the ED -blood cultures and wound cultures were taken in the ED -will discuss case with either surgery or Orthopedics in the morning however no other has been made for position referral at this time -wound care consult ordered -MRI w/o contrast has been ordered of the right lower leg -Pain control with scheduled tylenol and prn oxycodone Acute on chronic CKD, present on admission -She takes tacrolimus, anti-rejection for her kidneys -Request daughter bring in this medicaiton so that she may resume taking -Will contact nephrology if no improvement in renal function in the am. Diabetes type 1, poorly controlled with a HbA1c of 9.1 -She will be administered home dose of glargine 60 units subQ daily -High dose correctional insulin achs -Carb control diet -achs glucose testing Hypertension, chronic, present on admission -Continue home dose of metoprolol succinate 25 mg po bid Hypertriglycerdemia, chronic -Continue home dose of pravastatin -She takes incosapent 1 gram daily, and will need to bring this medication in Hypothyroidism, chronic -Continue home dose of levothyroixine 25 mcg daily Consults: Wound care, possibly surgery/ortho consult and involvement is appreciated. Patient is observation status as her stay is not likely to exceed 2 midnights. FEN: IV NS at 125 ml/hour, carb control diet, BMP in the am. VTE prophylaxis: Bilateral SCDs, heparin 5000 subQ bid Dispo: unknown at this time Code Status: DNR/DNI as discussed with patient COVID-19 COVID-19 status: Negative Result date/Date tested (Pos, Neg/Pending): 09/29/19 Quality VTE Deep Vein Thrombosis/Pulmonary Embolism Present on Admission: No
[2019-09-29] MEDS: VANCOMYCIN 500 MG in SODIUM CHLORIDE 0.9% 100 ML IV (23:46)
[2019-09-30] VITALS (8 sets, daily range): BP systolic 108–146; BP diastolic 56–92; PULSE 56–66; RESP 15–18; TEMP 35.8–36.9; O2SAT 96–100
[2019-09-30] MEDS: ACETAMINOPHEN 325 MG TABLET 650 MG PO ×3 (05:51→16:49)
[2019-09-30 06:03] LABS: Add Manual Diff / Slide Review NO; Basophils Absolute Auto 0 /uL (0-100); Basophils Percent Auto 0.4 % (0-2); Eosinophils Absolute Auto 100 /uL (0-450); Eosinophils Percent Auto 1.6 % (2-4); Hematocrit 34.4 % (36-46); Hemoglobin 11.7 g/dL (12.0-16.0); Lymphocytes Absolute Auto 1400 /uL (1100-4500); Lymphocytes Percent Auto 19.4 % (25-40); Mean Corpuscular HGB Conc 33.9 % (30-36); Mean Corpuscular Hemoglobin 30.5 PG (26-34); Mean Corpuscular Volume 90.1 fL (80-100); Monocytes Absolute Auto 600 /uL (0-900); Monocytes Percent Auto 9.3 % (3-14); Neutrophils Absolute Auto 4800 /uL (1500-7000); Neutrophils Percent Auto 69.3 % (50-75); Platelet Count 85 X10^3/uL (150-400); Red Blood Cell Count 3.82 X10^6/uL (4.0-5.2); Red Cell Distribution Width 15.6 % (11.6-14.8)
[2019-09-30 06:14] LABS: BUN Creatinine Ratio 19.7 (6-22); Blood Urea Nitrogen 37 mg/dL (7-17); Calcium 8.8 mg/dL (8.4-10.2); Carbon Dioxide 29 mmol/L (22-32); Chloride 104 mmol/L (98-107); Estimated Glomerular Filt Rate 26.3 mL/min (>60); Glucose 170 mg/dL (80-110); HEMOLYSIS < 15 (0-50); Magnesium 1.7 mg/dL (1.6-2.3); Potassium 3.8 mmol/L (3.4-5.1); Sodium 137 mmol/L (137-145)
[2019-09-30] MEDS: SODIUM CHLORIDE 0.9% 1,000 ML 150 ML IV (06:49)
[2019-09-30 07:02] LABS: Thyroid Stimulating Hormone 1.34 uIU/mL (0.47-4.68)
[2019-09-30] MEDS: LEVOTHYROXINE 25 MCG TABLET PO (07:09)
[2019-09-30] MEDS: INSULIN ASPART 100 UNIT/ML INSULN PEN SUBCUT ×4 (08:42→21:14)
[2019-09-30] MEDS: INSULIN GLARGINE 100 UNIT/ML 3ML PEN 60 UNIT SUBCUT (08:42)
[2019-09-30] MEDS: SERTRALINE 25 MG TABLET PO (08:43)
[2019-09-30] MEDS: TACROLIMUS 0.5 MG CAPSULE 1 MG PO ×2 (08:43→21:15)
[2019-09-30] MEDS: predniSONE 5 MG TABLET PO (08:43)
[2019-09-30] MEDS: ASPIRIN EC 81 MG TABLET PO (08:46)
[2019-09-30] MEDS: HEPARIN 5,000 UNIT/ML VIAL 5000 UNIT SUBCUT ×2 (08:46→21:15)
[2019-09-30] MEDS: DOCUSATE 100 MG CAPSULE PO ×2 (08:46→21:16)
[2019-09-30] MEDS: METOPROLOL ER 25 MG TABLET PO ×2 (08:46→21:15)
[2019-09-30] MEDS: PRAVASTATIN 20 MG TABLET PO (08:46)
--- NOTE | 2019-09-30 09:00 | DI.MRI.S_ITS ---
PROCEDURE: MR FOOT RT WO CON INDICATIONS: Right great toe avulsion wound, r/o osteomylitis TECHNIQUE: Noncontrast sagittal T1 spin echo and T2 fast spin echo with fat saturation, long-axis T1 spin echo and T2 fast spin echo with fat saturation, short-axis T1 spin echo and T2 fast spin echo with fat saturation through the forefoot. COMPARISON: [facility], CR, XR FOOT RT MIN 3V, 09/29/2019, 17:29. FINDINGS: Image quality: Excellent. Bones and joints: No there is marrow edema involving 1st distal phalanx with subtle erosive changes involving dorsal aspect of the 1st distal phalangeal tuft. No acute fracture or dislocation. No other area of abnormal marrow signal. Bipartite lateral sesamoid bone of 1st metatarsal head is seen. Osteoarthritic changes are noted throughout visualized midfoot and forefoot joints. Soft tissues: Ulceration involving dorsal aspect of distal right great toe is seen with surrounding soft tissue edema and swelling consistent with cellulitis, no discrete drainable fluid collection is identified. The visualized plantar foot muscles demonstrate normal signal and bulk. Visualized flexor and extensor tendons appear intact, without tenosynovitis. The distal insertions of the peroneus brevis and longus tendons appear intact. The principal Lisfranc ligament appears intact. No soft tissue ganglion cysts or bursal fluid collections. IMPRESSION: 1. Ulceration involving dorsal aspect of 1st distal phalanx with surrounding cellulitis. No discrete abscess collection. 2. Suggestion of osteomyelitis involving 1st distal phalanx with subtle bony erosive changes involving dorsal aspect of 1st distal phalangeal tuft. 3. Osteoarthritic changes throughout midfoot and forefoot joints. No acute fracture or dislocation. 4. Forefoot tendons and ligaments are grossly intact. Dictated by: Bobby De M.D. on 09/30/2019 at 11:08 Approved by: Bobby De M.D. on 09/30/2019 at 11:19
[2019-09-30 09:26] LABS: Acinetobacter baumannii Not Detected (Not Detect); Enterobacteriaceae species Not Detected (Not Detect); Enterococcus species Not Detected (Not Detect); Listeria monocytogenes Not Detected (Not Detect); Methicillin-resistant gene Detected (Not Detect); Streptococcus agalactiae (Gr B Not Detected (Not Detect); Streptococcus pneumonia Not Detected (Not Detect); Streptococcus pyogenes (Gr A) Not Detected (Not Detect); Streptococcus species Not Detected (Not Detect)
[2019-09-30 09:27] LABS: Candida albicans Not Detected (Not Detect); Candida glabrata Not Detected (Not Detect); Candida krusei Not Detected (Not Detect); Candida parapsilosis Not Detected (Not Detect); Candida tropicalis Not Detected (Not Detect); E. coli Not Detected (Not Detect); Enterobacter cloacae complex Not Detected (Not Detect); Haemophilus influenzae Not Detected (Not Detect); Neisseria meningitidis Not Detected (Not Detect); Proteus species Not Detected (Not Detect); Pseudomonas aeruginosa Not Detected (Not Detect); Serratia marcescens Not Detected (Not Detect); Staphylococcus species Detected (Not Detect)
--- NOTE | 2019-09-30 09:30 | DI.ECHO.S_ITS ---
[facility] +---------+ : : [address] : : : : [id number] : : : : Phone: [phone] Echocardiogram Report + + :Name: DALJIT EATON Study Date: 10/01/2019 Height: 65 in : :[facility] Weight: 201 lb : : Gender: Female BSA: 2.0 m2 : :: 1945 Age: 73 yrs BP: 146/70 mmHg: :Reason For Study: Staph Bacteremia : :Ordering Physician: HOSPITALIST, : :ABIODUN Performed By: Radha Ortega : :Referring: IWONA PETE : + + Interpretation Summary The left ventricle is normal in size and wall thickness. The ejection fraction is estimated to be 55-60%. There is no obvious LV thrombus. Diastolic parameters suggest a pseudonormalization pattern, consistent with probable elevated filling pressures. The right ventricle is normal in size and function. There is mild to moderate tricuspid regurgitation. The right ventricular systolic pressure is estimated to be at least 41 mmHg based on an estimated right atrial pressure of 8 mm Hg. Moderate atherosclerotic plaque(s) in the aortic arch. No obvious valvular vegetation seen. If clinical suspicion for endocarditis with high, consider JENNIFER. Procedure: A two-dimensional transthoracic echocardiogram with color flow and Doppler was performed. The study quality was technically adequate. Comparison is made with the echocardiogram of 11/20/2017. The heart rate ranged between 66-71 bpm during the study. The patient was in normal sinus rhythm during the exam. The patient had occasional PACs during the exam. Left Ventricle: The left ventricle is normal in size and wall thickness. There is no thrombus. A false chord is noted (normal variant). The ejection fraction is estimated to be 55-60%. There are no focal wall motion abnormalities. Diastolic parameters suggest a pseudonormalization pattern, consistent with probable elevated filling pressures. Right Ventricle: The right ventricle is normal in size and function. Atria: The left atrium is moderately dilated. Right atrial size is normal. There is no Doppler evidence for an interatrial shunt. Mitral Valve: There is mild mitral annular calcification. The mitral valve leaflets are mildly calcified. The mitral valve chordae are thickened and/or calcified. There is mild mitral regurgitation. Aortic Valve: The aortic valve is mildly calcified. The aortic valve is trileaflet. There is no aortic valve stenosis. No aortic regurgitation is present. Tricuspid Valve: The tricuspid valve is normal. The right ventricular systolic pressure is estimated to be at least 41 mmHg based on an estimated right atrial pressure of 8 mm Hg. There is mild to moderate tricuspid regurgitation. Pulmonic Valve: The pulmonic valve leaflets are thin and pliable; valve motion is normal. There is mild to moderate pulmonic regurgitation. Great Vessels: The aortic root is normal size. There is aortic root sclerosis/calcification. The ascending aorta is at the upper limits of normal in size. Moderate atherosclerotic plaque(s) in the aortic arch. The IVC is dilated (diameter is greater than 2.1 cm) yet it collapses greater than 50% with a sniff. This suggests a right atrial pressure of 8 mm Hg. Pericardium/ Pleura There is no pericardial effusion. There is no pleural effusion. MMode/2D Measurements & Calculations LVIDd: 4.6 cm LVOT diam: 2.4 cm LVIDs: 3.1 cm Ao root diam: 3.5 cm FS: 31.7 % asc Aorta Diam: 3.8 cm IVSd: 0.95 cm Ao Arch Diam (Prox Trans): 2.6 cm LVPWd: 0.84 cm LV espinoza. diameter/BSA (cm/m^2): 2.3 LV sys. diameter/BSA (cm/m^2): 1.6 LA A2 area: 25.1 cm2 RA long axis: 5.9 cm LA A4 area: 27.3 cm2 RA area: 20.9 cm2 LA length (vol): 6.7 cm RA vol: 62.9 ml LA vol: 86.9 ml RA : 31.8 ml/m2 LA vol index: 43.8 ml/m2 IVC diam: 2.1 cm RVD1 (basal): 3.6 cm TAPSE: 2.0 cm Doppler Measurements & Calculations Ao V2 max: 201.9 cm/sec LVOT Max Enrique: 120.9 cm/sec Ao V2 mean: 131.0 cm/sec LV V1 max P.9 mmHg Ao max P.3 mmHg LV V1 VTI: 29.0 cm Ao mean P.1 mmHg DAMIAN(I,D): 2.6 cm2 Ao V2 VTI: 48.9 cm DAMIAN(V,D): 2.6 cm2 sev ratio: 0.59 DAMIAN indexed to BSA (cm^2/m^2): 1.3 MV E max enrique: 125.7 cm/sec TR max enrique: 286.6 cm/sec MV A max enrique: 97.1 cm/sec TR max P.9 mmHg MV E/A: 1.3 Med Peak E' Enrique: 4.7 cm/sec E/E' med: 26.9 Lat Peak E' Enrique: 7.4 cm/sec E/E' lat: 17.0 E/e' average: 22.0 MV dec time: 0.20 sec SV(LVOT): 126.1 ml Reading Physician:02:06 PM
--- NOTE | 2019-09-30 10:12 | PC.NURSE ---
Day shift: Pt off unit for MRI at approx 1015. SL and off tele.
--- NOTE | 2019-09-30 10:37 | PC.NURSE ---
Day shift: Pt taken to car in by JENNIE. Car driven by her spouse. Paperwork signed and all questions answered. Pt has all personal belongings. scrips at Pt's pharmacy electronic.
--- NOTE | 2019-09-30 12:11 | CM.DANOTE ---
DCP assessment: EMR reviewed: Patient is a 73 yr old female who was admitted for Cellulitis of the Rt big toe and ISMAEL. patients PCP is JOSE Butler. CM/RN met with patient at the bedside and explained role. patient was alert and oriented x3 during visit. Patient currently lives alone in her trail[place] home. Patients daughter lives near by and visits regularly. Patient states she is independent with all ADL's at base line. During AM rounds Dr. Javier stated that patient will need a ECHO, MRI and consult with ortho to determine treatment course. IF patient has toe amputated antibiotic treatment will be less if not then 6 weeks of IV infusions will be needed. when asked about SNF patient said she didn't want to go to SNF but is open to HH services. I: Medicare and Plan: D/C home with HH and possible home antibiotic IV infusions. D/C plan is pending ortho consult and treatment plan.CM department will follow help with D/C plans. Corrine Frias RN Discharge Planning/Care Management CM Discharge Assessment Start: 09/30/19 12:07 Freq: Status: Active Protocol: Document 09/30/19 12:07 (Rec: 09/30/19 12:10 [id number]) Discharge Planning Assessment Assigned Mathematical Engineer Corrine Frias RN DPOA/Assigned Designee Name Jennifer Dutton (daughter) Contact Information [phone] Advance Directives? No History Provided By Patient,Medical Record Has Patient been admitted in last 30 No days? Prior Living Arrangements Mobile home Household Members none Independent with ADL's Yes Is patient alert and oriented? Yes Caregiver for Another No DME Already Rented / Owned FWW / Walker,Cane Patient/Family Preference Home with Home Health Discharge Plan Home with Home Health Referrals Initiated Home Health If patient plan is home with home health No: Not yet grupo get after : Has signed face to face form been Consult with ortho completed? Medicare Choice List Provided Yes SNF/HH Preference Signature HH Whiteboard Updated in Patient Room with Yes name and ext. # of Mathematical Engineer Review Status In Process Next Review Type Continued Stay Review
--- NOTE | 2019-09-30 13:07 | DIET.PN ---
Dietary Progress Note Assessment: 73y F admitted for cellulitis of right great toe referred to nutrition for poorly controlled DM. Pt A1c is 9.1 indicating poor glycemic control c admit BG 321 and known mild dementia. Pt reports living in single family home with son and his girlfriend, but spending time at daughter's farm where she stays in 2br trailer on property. Per pt plan is to move in trailer FT. Pt last A1c drawn 03/09/17 was 7.2, pt was seen at ER on 11/27/18 where BG was 608. Pt reports her 2-3 years ago and her poor management of DM is stress-related. Pt does not drive and does not do own grocery shopping (daughter, Jennifer shops). Pt has hx of kidney transplant and CKD c current eGFR 26.3 and Cr 1.88. Pt unable to report usual day meals or how she manages her health conditions. Pt had circular conversation which centered around her daughter and daughter's three children. Pt appears not to understand severity of toe infection stating, its been like this a few days, I called my daughter and she thought I would have to go to the hospital again. Per nursing report, pt unable to state medications and doses including for DM management and transplant rejection. HT: 165.1 WT: 91.1kg BMI: 33.4 Labs: eGFR 26.3 L, Cr 1.88 H, A1c 9.2 H, admit BG 321. Nutrition Diagnosis: altered nutrition related laboratory values r/t physical and psychological causes aeb A1c 9.2, admit BG 321, eGFR 26.3, Cr 1.88, pt's mild dementia limiting structured self care, pts daughter reporting toe wound contained maggots. Interventions: 1. Discussed c pt great option of living in trailer of daughter's property for help c chronic condition management and reduce isolation. Diet Order: CCD EER: 55-60g PRO (0.6-0.8g/kg per renal, wounds) Monitoring/Evaluations: monitoring for daughter's visit to get clear picture of DM and renal dietary practices.
--- NOTE | 2019-09-30 13:07 | CM.DPC ---
DCP Cont: This marketing systems manager will be taking over for discharge planning. Alexia, chief dietitian, had already seen patient and mentioned that there were changes in her stories regarding her living situation. She mentioned to Alexia that she was residing with her son and his girl friend, and may plan to move over to her daughter's property soon. This marketing systems manager spoke to patient. Introduced self and role, updated white board. Asked her some questions, such as her living situation. She told this marketing systems manager that she resides alone, but her daughter, Jennifer, lives [place] of [place] and wants me to come and live on her property in the trailer. Asked patient if Jennifer is her marketing systems manager, and she stated not as of yet, but she's the youngest, and they are the closest. Patient stated that she takes her own showers, uses a walker. Asked her if she had ever had wound care, such as home health, before, and she denied. Mentioned fci with her again, for marketing systems manager had initially mentioned. She stated, I might consider it, but my daughter might not want it. She has given permission for this marketing systems manager to contact her daughter, Jennifer Dutton for any additional information. Her phone number is: [phone]. Left a message for Jennifer to call this case manage back. P: DCP to continue to follow and be available for any resources needed, such as fci, home health, as well as home infusions. Will include daughter, Jennifer, to assist in part of the plan as well. Patient confirmed that she has been checking her blood sugars three times a day, and taking her insulin. aLuren Villela RN/Hydraulic Specialist
--- NOTE | 2019-09-30 14:11 | PM.PN.1 ---
Subjective Subjective Date Patient Seen: 09/30/19 Time Patient Seen: 14:12 Interval history: April Felix is a 73 y.o. female with a history of a right renal transplant, DM type 1, hypertension, hyperlipidemia and depression was brought in by her daughter with a wound on her right great toe. Her blood cultures were positive for a Staph species today, with positive MecA gene likely MRSA. Consulted orthopedics who referred to podiatry, pending formal recommendations at this time. MRI of her right foot showed possible osteomyelitis of her distal right 1st phalanx. She denies any pain in her toe and thinks she had this wound for about a week. She also noticed that there were some maggots in that toe. She thinks that the swelling has gone down somewhat after being started on ceftriaxone and vancomycin. She also initially had an ISMAEL with a creatinine of 2.29 that is improved to 1.88 today. Her A1c came back at 9.1% showing poor control. Exam Vital Signs (past 8 hours): - 09/30/19 07:45 09/30/19 08:07 09/30/19 09:37 Temperature 97.6 F Pulse Rate 64 63 Respiratory Rate 15 Blood Pressure 123/68 Pulse Oximetry 98 99 09/30/19 11:26 Temperature 96.5 F L Pulse Rate 58 L Respiratory Rate 16 Blood Pressure 131/92 H Pulse Oximetry 96 Oxygen Delivery Method Room Air Oxygen Flow Rate 0 Narrative Exam Narrative: GENERAL APPEARANCE: Well developed, well nourished, in no acute distress. SKIN: Inspection of the skin reveals R 1st toe ulceration on the distal aspect, circumferentially with necrosis. Mild erythema over her toe and no tenderness. HEENT: Normocephalic atraumatic, extraocular muscles are intact, oropharynx is clear and mucous membranes are moist, neck is supple without adenopathy NECK: Supple and symmetric. There was no thyroid enlargement, and no tenderness, or masses were felt. CHEST: Normal AP diameter and normal contour without any kyphoscoliosis. LUNGS: Auscultation of the lungs revealed no wheezes, rhonchi, or rales. CARDIOVASCULAR: There was a regular rate and rhythm without any murmurs, gallops, rubs. Peripheral pulses were 2+ and symmetric. ABDOMEN: Soft and nontender with normal bowel sounds. No ascites was noted. MUSCULOSKELETAL: There was no tenderness or effusions noted. Muscle strength and tone were normal. R 1st toe ulceration with mild cellulitis as noted above. EXTREMITIES: No cyanosis, clubbing. trace edema bilaterally in LE NEUROLOGIC: Alert and oriented x 3. Normal affect. Strength is +5/5 in the Upper Extremities and Lower Extremities Bilaterally. Sensation to touch touch was diminished in bilateral feet. Objective Labs Result Diagrams: 09/30/19 05:47 09/30/19 05:47 Labs: Laboratory Results - last 24 hr 09/29/19 09/29/19 09/29/19 17:25 17:25 17:25 WBC 7.6 RBC 4.10 Hgb 12.5 Hct 37.1 MCV 90.4 MCH 30.6 MCHC 33.8 RDW 15.4 H Plt Count 91 L Neut % (Auto) 77.3 H Lymph % (Auto) 14.5 L [place] % (Auto) 6.2 Eos % (Auto) 1.2 L Baso % (Auto) 0.8 Neut # (Auto) 5800 Lymph # (Auto) 1100 [place] # (Auto) 500 Eos # (Auto) 100 Baso # (Auto) 100 PT 12.8 H INR 1.1 APTT 30 Sodium Potassium Chloride Carbon Dioxide BUN Creatinine Estimated GFR BUN/Creatinine Ratio Glucose Hemoglobin A1c Lactate Calcium Magnesium Total Bilirubin AST ALT Alkaline Phosphatase Total Protein Albumin Globulin Albumin/Globulin Ratio Lipase Procalcitonin 0.24 TSH A. baumannii (PCR) Autumn albicans (PCR) C. glabrata (PCR) C. krusei (PCR) C. parapsilosis (PCR) C. tropicalis (PCR) COVID-19 PCR Enterobacteriac sp PCR E. cloacae complex PCR Enterococcus sp PCR E. coli (PCR) H. influenzae (PCR) Klebsiella oxytoca PCR Klebsiella pneumoniae List. monocytogenes PCR N. meningitidis (PCR) Proteus species (PCR) Serratia marcescens PCR Staphylococcus sp PCR Staph aureus (PCR) mecA-Methicil Res Gene Streptococcus sp PCR Group A Strep (PCR) Strep agalactiae (PCR) Strep pneumoniae (PCR) P. aeruginosa (PCR) Prashant/B-Vanco Res Genes KPC-Carbap Res Gene PCR 09/29/19 09/29/19 09/29/19 17:25 17:25 17:25 WBC RBC Hgb Hct MCV MCH MCHC RDW Plt Count Neut % (Auto) Lymph % (Auto) [place] % (Auto) Eos % (Auto) Baso % (Auto) Neut # (Auto) Lymph # (Auto) [place] # (Auto) Eos # (Auto) Baso # (Auto) PT INR APTT Sodium 134 L Potassium 4.2 Chloride 98 Carbon Dioxide 30 BUN 43 H Creatinine 2.29 H Estimated GFR 20.9 L BUN/Creatinine Ratio 18.8 Glucose 321 H Hemoglobin A1c 9.1 H Lactate 1.3 Calcium 9.3 Magnesium Total Bilirubin 1.8 H AST 19 ALT 11 Alkaline Phosphatase 96 Total Protein 6.8 Albumin 3.5 Globulin 3.3 Albumin/Globulin Ratio 1.1 Lipase 37 Procalcitonin TSH A. baumannii (PCR) Autumn albicans (PCR) C. glabrata (PCR) C. krusei (PCR) C. parapsilosis (PCR) C. tropicalis (PCR) COVID-19 PCR Enterobacteriac sp PCR E. cloacae complex PCR Enterococcus sp PCR E. coli (PCR) H. influenzae (PCR) Klebsiella oxytoca PCR Klebsiella pneumoniae List. monocytogenes PCR N. meningitidis (PCR) Proteus species (PCR) Serratia marcescens PCR Staphylococcus sp PCR Staph aureus (PCR) mecA-Methicil Res Gene Streptococcus sp PCR Group A Strep (PCR) Strep agalactiae (PCR) Strep pneumoniae (PCR) P. aeruginosa (PCR) Prashant/B-Vanco Res Genes KPC-Carbap Res Gene PCR 09/29/19 09/29/19 09/30/19 17:25 20:20 05:47 WBC 7.0 RBC 3.82 L Hgb 11.7 L Hct 34.4 L MCV 90.1 MCH 30.5 MCHC 33.9 RDW 15.6 H Plt Count 85 L Neut % (Auto) 69.3 Lymph % (Auto) 19.4 L [place] % (Auto) 9.3 Eos % (Auto) 1.6 L Baso % (Auto) 0.4 Neut # (Auto) 4800 Lymph # (Auto) 1400 [place] # (Auto) 600 Eos # (Auto) 100 Baso # (Auto) 0 PT INR APTT Sodium Potassium Chloride Carbon Dioxide BUN Creatinine Estimated GFR BUN/Creatinine Ratio Glucose Hemoglobin A1c Lactate Calcium Magnesium Total Bilirubin AST ALT Alkaline Phosphatase Total Protein Albumin Globulin Albumin/Globulin Ratio Lipase Procalcitonin TSH A. baumannii (PCR) Not detected Autumn albicans (PCR) Not detected C. glabrata (PCR) Not detected C. krusei (PCR) Not detected C. parapsilosis (PCR) Not detected C. tropicalis (PCR) Not detected COVID-19 PCR Negative Enterobacteriac sp PCR Not detected E. cloacae complex PCR Not detected Enterococcus sp PCR Not detected E. coli (PCR) Not detected H. influenzae (PCR) Not detected Klebsiella oxytoca PCR Not detected Klebsiella pneumoniae Not detected List. monocytogenes PCR Not detected N. meningitidis (PCR) Not detected Proteus species (PCR) Not detected Serratia marcescens PCR Not detected Staphylococcus sp PCR Detected H Staph aureus (PCR) Not detected mecA-Methicil Res Gene Detected H Streptococcus sp PCR Not detected Group A Strep (PCR) Not detected Strep agalactiae (PCR) Not detected Strep pneumoniae (PCR) Not detected P. aeruginosa (PCR) Not detected Prashant/B-Vanco Res Genes Not Reportable KPC-Carbap Res Gene PCR Not Reportable 09/30/19 09/30/19 05:47 05:47 WBC RBC Hgb Hct MCV MCH MCHC RDW Plt Count Neut % (Auto) Lymph % (Auto) [place] % (Auto) Eos % (Auto) Baso % (Auto) Neut # (Auto) Lymph # (Auto) [place] # (Auto) Eos # (Auto) Baso # (Auto) PT INR APTT Sodium 137 Potassium 3.8 Chloride 104 Carbon Dioxide 29 BUN 37 H Creatinine 1.88 H Estimated GFR 26.3 L BUN/Creatinine Ratio 19.7 Glucose 170 H D Hemoglobin A1c Lactate Calcium 8.8 Magnesium 1.7 Total Bilirubin AST ALT Alkaline Phosphatase Total Protein Albumin Globulin Albumin/Globulin Ratio Lipase Procalcitonin TSH 1.34 A. baumannii (PCR) Autumn albicans (PCR) C. glabrata (PCR) C. krusei (PCR) C. parapsilosis (PCR) C. tropicalis (PCR) COVID-19 PCR Enterobacteriac sp PCR E. cloacae complex PCR Enterococcus sp PCR E. coli (PCR) H. influenzae (PCR) Klebsiella oxytoca PCR Klebsiella pneumoniae List. monocytogenes PCR N. meningitidis (PCR) Proteus species (PCR) Serratia marcescens PCR Staphylococcus sp PCR Staph aureus (PCR) mecA-Methicil Res Gene Streptococcus sp PCR Group A Strep (PCR) Strep agalactiae (PCR) Strep pneumoniae (PCR) P. aeruginosa (PCR) Prashant/B-Vanco Res Genes KPC-Carbap Res Gene PCR Assessment & Plan Assessment & Plan narrative: April Felix will be admitted for antibiotic treatment and management of a right great toe infection and ulcer. She will also be closely monitored and treated for an acute on chronic kidney injury. 1. right 1st toe foot ulcer, acute, present on admission -continue ceftriaxone and vancomycin until cultures are finalized -blood cultures and wound cultures were taken in the ED, blood cultures currently with a staph species and MecA gene. -consulted orthopedics who referred to podiatry. Pending formal evaluation and recommendations. -MRI w/o contrast showing findings consistent with osteomyelitis of her right distal 1st phalanx. Pending Podiatry recommendations as noted above she will continue on antibiotics until cultures finalize. -Pain control with scheduled tylenol and prn oxycodone 2. Staph bacteremia, acute, present on admission - continue ceftriaxone and vancomycin pending final cultures. - TTE has been ordered, source is likely her 1st toe ulceration. - will need at least 2 weeks of IV antibiotics, pending podiatry evaluation. 6 weeks for osteomyelitis or if toe amputation would treat for bacteremia. recheck blood cultures tomorrow AM. 3. Acute on chronic CKD, solitary kidney, present on admission -She takes tacrolimus, anti-rejection for her kidneys which we will continue. Can continue home prednisone at 5 mg daily as well. -if worsening creatinine consider transfer to [facility] for nephrology consultation. 4. Diabetes type 1, poorly controlled with a HbA1c of 9.1 -She will be administered home dose of glargine 60 units subQ daily -High dose correctional insulin achs -Carb control diet -achs glucose testing 5. Hypertension, chronic, present on admission -Continue home dose of metoprolol succinate 25 mg po bid 6. Hypertriglycerdemia, chronic -Continue home dose of pravastatin -She takes incosapent 1 gram daily, and will need to bring this medication in 7. Hypothyroidism, chronic -Continue home dose of levothyroixine 25 mcg daily Consults: Podiatry, pending. Status: Inpatient Code Status: DNR/DNI as discussed with patient COVID-19 COVID-19 status: Negative Result date/Date tested (Pos, Neg/Pending): 09/29/19 Quality VTE Deep Vein Thrombosis/Pulmonary Embolism Present on Admission: No
--- NOTE | 2019-09-30 16:35 | PC.NURSE ---
Assumed care of pt at 1500. Pt sitting up in chair during bedside hand-off. Denies pain or discomfort. IVF to PIV. Elevated BLE and applied non-adherent pad between toes and foam drsg to R. Big toe. Pt tolerated well. Placed on contact isolation r/t staph in blood cultures. chair alarm on. Pt verbalized she will call for needs.
--- NOTE | 2019-09-30 17:48 | PM.CN ---
History of Present Illness Consult details Date Patient Seen: 09/30/19 Time Patient Seen: 17:48 Chief complaint: Cellulitis of the right great toe, ISMAEL Reason for consult: Right toe infection Narrative: 73-year-old female admitted due to renal concerns. Patient is status post a renal transplant. While here patient gave a history of long-standing infection and to the right 1st toe. Patient is not exactly sure how long this has been going on but does feel like it has worsened over the last week or so. She has a head of english down in [facility] but states it has been quite sometime since she last saw him. Denies any pain. Patient states she has very little sensation to the foot. Also denies any drainage as well. Meds Home Medications and Allergies Home Medications Medication Instructions Recorded Confirmed Type Lantus U-100 Insulin 60 unit SQ DAILY #0 10/19/12 09/29/19 History acetaminophen 325 mg PO PRN PRN #0 10/19/12 09/29/19 History aspirin 81 mg PO DAILY #0 10/19/12 09/29/19 History calcium carbonate 500 mg PO DAILY #0 10/19/12 09/29/19 History esomeprazole magnesium [Nexium] 20 mg PO BEDTIME #0 10/19/12 09/29/19 History nitrofurantoin macrocrystal 50 mg PO DAILY #0 10/19/12 09/29/19 History prednisone 5 mg PO DAILY #0 10/19/12 09/29/19 History tacrolimus [Prograf] 2 mg PO BID #0 10/19/12 09/29/19 History empagliflozin [Jardiance] 10 mg PO DAILY 11/27/18 09/29/19 History furosemide 20 mg PO BID 11/27/18 09/29/19 History icosapent ethyl [Vascepa] 1 g PO BID 11/27/18 09/29/19 History levothyroxine 25 mcg PO DAILY 11/27/18 09/29/19 History pravastatin 20 mg PO DAILY 11/27/18 09/29/19 History insulin lispro [Humalog U-100 20 unit SUBCUT DAILY 09/29/19 09/29/19 History Insulin] metoprolol succinate 25 mg PO BID 09/29/19 09/29/19 History oxycodone 5 mg PO TID PRN 09/29/19 09/29/19 History oxycodone [OxyContin] 10 mg PO BEDTIME 09/29/19 09/29/19 History sertraline 25 mg PO DAILY 09/29/19 09/29/19 History Allergies Allergy/AdvReac Type Severity Reaction Status Date / Time verapamil [VERAPAMIL] Allergy Intermediate RHADOMYOLYS Verified 09/29/19 17:17 IS methadone [METHADONE] Allergy Mild N/V Verified 09/29/19 17:17 propoxyphene [PROPOXYPHENE] Allergy Mild N/V Verified 09/29/19 17:17 morphine Allergy Verified 09/29/19 17:17 Review of Systems Review of Systems ROS: Yes All systems reviewed with the patient and are negative except as otherwise documented Exam Vital Signs (past 8 hours): - 09/30/19 11:26 09/30/19 15:30 Temperature 96.5 F L 98.3 F Pulse Rate 58 L 56 L Respiratory Rate 16 18 Blood Pressure 131/92 H 108/56 L Pulse Oximetry 96 98 Oxygen Delivery Method Room Air Oxygen Flow Rate 0 Narrative Exam Narrative: Patient's dressing was removed today. There is signs of necrosis to the toe but no sign of any drainage. The nail bed is almost completely off. Unable to express any fluid. Really little to no pain her sensation to the big toe. No sign of any lesions or ulcers to the plantar aspect of the toe. Majority of it is to the very tip in the dorsal aspect over the nail bed. Objective Labs Result Diagrams: 09/30/19 05:47 09/30/19 05:47 Labs: Laboratory Results - last 24 hr 09/29/19 09/29/19 09/29/19 17:25 17:25 17:25 WBC RBC Hgb Hct MCV MCH MCHC RDW Plt Count Neut % (Auto) Lymph % (Auto) [place] % (Auto) Eos % (Auto) Baso % (Auto) Neut # (Auto) Lymph # (Auto) [place] # (Auto) Eos # (Auto) Baso # (Auto) Sodium Potassium Chloride Carbon Dioxide BUN Creatinine Estimated GFR BUN/Creatinine Ratio Glucose Hemoglobin A1c 9.1 H Calcium Magnesium Procalcitonin 0.24 TSH A. baumannii (PCR) Not detected Autumn albicans (PCR) Not detected C. glabrata (PCR) Not detected C. krusei (PCR) Not detected C. parapsilosis (PCR) Not detected C. tropicalis (PCR) Not detected COVID-19 PCR Enterobacteriac sp PCR Not detected E. cloacae complex PCR Not detected Enterococcus sp PCR Not detected E. coli (PCR) Not detected H. influenzae (PCR) Not detected Klebsiella oxytoca PCR Not detected Klebsiella pneumoniae Not detected List. monocytogenes PCR Not detected N. meningitidis (PCR) Not detected Proteus species (PCR) Not detected Serratia marcescens PCR Not detected Staphylococcus sp PCR Detected H Staph aureus (PCR) Not detected mecA-Methicil Res Gene Detected H Streptococcus sp PCR Not detected Group A Strep (PCR) Not detected Strep agalactiae (PCR) Not detected Strep pneumoniae (PCR) Not detected P. aeruginosa (PCR) Not detected Prashant/B-Vanco Res Genes Not Reportable KPC-Carbap Res Gene PCR Not Reportable 09/29/19 09/30/19 09/30/19 20:20 05:47 05:47 WBC 7.0 RBC 3.82 L Hgb 11.7 L Hct 34.4 L MCV 90.1 MCH 30.5 MCHC 33.9 RDW 15.6 H Plt Count 85 L Neut % (Auto) 69.3 Lymph % (Auto) 19.4 L [place] % (Auto) 9.3 Eos % (Auto) 1.6 L Baso % (Auto) 0.4 Neut # (Auto) 4800 Lymph # (Auto) 1400 [place] # (Auto) 600 Eos # (Auto) 100 Baso # (Auto) 0 Sodium 137 Potassium 3.8 Chloride 104 Carbon Dioxide 29 BUN 37 H Creatinine 1.88 H Estimated GFR 26.3 L BUN/Creatinine Ratio 19.7 Glucose 170 H D Hemoglobin A1c Calcium 8.8 Magnesium 1.7 Procalcitonin TSH A. baumannii (PCR) Autumn albicans (PCR) C. glabrata (PCR) C. krusei (PCR) C. parapsilosis (PCR) C. tropicalis (PCR) COVID-19 PCR Negative Enterobacteriac sp PCR E. cloacae complex PCR Enterococcus sp PCR E. coli (PCR) H. influenzae (PCR) Klebsiella oxytoca PCR Klebsiella pneumoniae List. monocytogenes PCR N. meningitidis (PCR) Proteus species (PCR) Serratia marcescens PCR Staphylococcus sp PCR Staph aureus (PCR) mecA-Methicil Res Gene Streptococcus sp PCR Group A Strep (PCR) Strep agalactiae (PCR) Strep pneumoniae (PCR) P. aeruginosa (PCR) Prashant/B-Vanco Res Genes KPC-Carbap Res Gene PCR 09/30/19 05:47 WBC RBC Hgb Hct MCV MCH MCHC RDW Plt Count Neut % (Auto) Lymph % (Auto) [place] % (Auto) Eos % (Auto) Baso % (Auto) Neut # (Auto) Lymph # (Auto) [place] # (Auto) Eos # (Auto) Baso # (Auto) Sodium Potassium Chloride Carbon Dioxide BUN Creatinine Estimated GFR BUN/Creatinine Ratio Glucose Hemoglobin A1c Calcium Magnesium Procalcitonin TSH 1.34 A. baumannii (PCR) Autumn albicans (PCR) C. glabrata (PCR) C. krusei (PCR) C. parapsilosis (PCR) C. tropicalis (PCR) COVID-19 PCR Enterobacteriac sp PCR E. cloacae complex PCR Enterococcus sp PCR E. coli (PCR) H. influenzae (PCR) Klebsiella oxytoca PCR Klebsiella pneumoniae List. monocytogenes PCR N. meningitidis (PCR) Proteus species (PCR) Serratia marcescens PCR Staphylococcus sp PCR Staph aureus (PCR) mecA-Methicil Res Gene Streptococcus sp PCR Group A Strep (PCR) Strep agalactiae (PCR) Strep pneumoniae (PCR) P. aeruginosa (PCR) Prashant/B-Vanco Res Genes KPC-Carbap Res Gene PCR Assessment & Plan Assessment & Plan narrative: Patient with signs of possible osteomyelitis to the distal phalanx of the big toe. Patient had an MRI done earlier today showing signs of possible osteomyelitis. No sign of any fluid collection on the MRI. I will have our head of english, Dr. Zimmer, take a look at the toe tomorrow. She can decide if this requires any debridement versus partial amputation. Time Spent With Patient Time with patient: less than 15 minutes
[2019-09-30] MEDS: PANTOPRAZOLE 20 MG TABLET PO (21:15)
[2019-09-30] MEDS: CEFTRIAXONE 1 GM/50 ML FROZ.PIGGY IV (21:21)
[2019-10-01] VITALS (10 sets, daily range): BP systolic 128–178; BP diastolic 49–87; PULSE 54–73; RESP 16–20; TEMP 35.9–37.1; O2SAT 97–100
[2019-10-01] MEDS: ACETAMINOPHEN 325 MG TABLET 650 MG PO ×4 (00:15→16:29)
[2019-10-01] MEDS: SODIUM CHLORIDE 0.9% FLUSH 10 ML IV ×3 (04:13→20:29)
[2019-10-01] MEDS: LEVOTHYROXINE 25 MCG TABLET PO (06:27)
[2019-10-01 07:01] LABS: Add Manual Diff / Slide Review NO; Basophils Absolute Auto 0 /uL (0-100); Basophils Percent Auto 0.5 % (0-2); Eosinophils Absolute Auto 100 /uL (0-450); Hematocrit 33.3 % (36-46); Hemoglobin 11.2 g/dL (12.0-16.0); Lymphocytes Absolute Auto 1000 /uL (1100-4500); Mean Corpuscular HGB Conc 33.6 % (30-36); Mean Corpuscular Hemoglobin 30.5 PG (26-34); Mean Corpuscular Volume 90.8 fL (80-100); Monocytes Absolute Auto 600 /uL (0-900); Monocytes Percent Auto 9.2 % (3-14); Neutrophils Absolute Auto 4400 /uL (1500-7000); Neutrophils Percent Auto 71.3 % (50-75); Platelet Count 83 X10^3/uL (150-400); Red Blood Cell Count 3.67 X10^6/uL (4.0-5.2); Red Cell Distribution Width 15.6 % (11.6-14.8); White Blood Cell Count 6.1 X10^3/uL (4.5-11.0)
[2019-10-01 07:13] LABS: Alanine Aminotransferase 8 IU/L (<35); Albumin 2.8 g/dL (3.5-5.0); Albumin Globulin Ratio 0.9 (1.0-2.8); Alkaline Phosphatase 74 U/L (38-126); Aspartate Aminotransferase 16 IU/L (14-36); BUN Creatinine Ratio 17.4 (6-22); Bilirubin Total 0.7 mg/dL (0.2-1.3); Bilirubin Unconjugated 0.5 mg/dL (0.0-1.1); Blood Urea Nitrogen 28 mg/dL (7-17); Calcium 8.6 mg/dL (8.4-10.2); Carbon Dioxide 23 mmol/L (22-32); Chloride 109 mmol/L (98-107); Estimated Glomerular Filt Rate 31.5 mL/min (>60); Glucose 190 mg/dL (80-110); HEMOLYSIS < 15 (0-50); Magnesium 1.6 mg/dL (1.6-2.3); Potassium 3.6 mmol/L (3.4-5.1); Sodium 137 mmol/L (137-145); Total Protein 5.8 g/dL (6.3-8.2)
--- NOTE | 2019-10-01 07:25 | PC.NURSE ---
Dr. Zimmer here & seen pt. this morning.
--- NOTE | 2019-10-01 08:01 | CM.DPC ---
Addendum entered by Lauren Villela R.N. 10/01/19 10:38: Discussed patient during team rounds. She is having an arterial study today. This may also determine if patient will need to be transferred to [facility], for she also has nephrologists there. Patient could possibly have her toe amputated today, will depend upon study. Was able to get in contact with patient's daughter, Jennifer Dutton. Confirmed that patient resides on her daughter's property in a double wide trailer. She stated that her 14 year old son also stays in the spare room, so he can also keep an eye on her. Daughter also stated that she gets paid by [employer] to care for her mother. Stated that she assists patient with her showers, and they check her blood sugars. Daughter also stated that her mother has been diagnosed with Alzheimers. Daughter also stated, I felt bad when I saw her toe, I didn't realize it was so bad. She also mentioned that her daughter and her brought patient here to the hospital after looking at her foot. Discussed discharge options. Mentioned skilled versus home infusion. Daughter stated, she has helped her mother with home infusions at home before. Let her know that there could be an out of pocket cost as well, since Jose from [facility] explained with [facility]. Will continue to follow. Alison called back from [facility] and gave her additional information, so she is aware. Original Note: DCP Cont: Left a message with patient's daughter, Jennifer, to discuss plan. Went ahead and left a message with Alison at [facility] for her to review, for it is noted that patient will need either 2 weeks of ABO IV if toe is amputated, or 6 weeks if not, for she has bacteremia/MRSA. Mentioned nursing home to patient yesterday. Will also go ahead and have [facility] send information for [facility] as well, noting that this would be under [facility], if they cover home infusions. P: DCP to continue to follow. Will follow up today with patient regarding plan, and Alison at [facility]. Will also follow up with Jose at [facility] as well. Lauren Villela RN/Manufacturing Quality Technician
[2019-10-01] MEDS: INSULIN ASPART 100 UNIT/ML INSULN PEN SUBCUT ×4 (08:34→20:29)
[2019-10-01] MEDS: TACROLIMUS 0.5 MG CAPSULE 1 MG PO ×2 (08:35→20:28)
[2019-10-01] MEDS: predniSONE 5 MG TABLET PO (08:35)
[2019-10-01] MEDS: INSULIN GLARGINE 100 UNIT/ML 3ML PEN 60 UNIT SUBCUT (08:35)
[2019-10-01] MEDS: SERTRALINE 25 MG TABLET PO (08:35)
[2019-10-01] MEDS: PRAVASTATIN 20 MG TABLET PO (08:39)
[2019-10-01] MEDS: DOCUSATE 100 MG CAPSULE PO (08:39)
[2019-10-01] MEDS: METOPROLOL ER 25 MG TABLET PO ×2 (08:39→20:27)
--- NOTE | 2019-10-01 08:59 | PC.NURSE ---
Day shift: Per Dr Javier ok to hold heparin injection and aspirin this AM. Pt may have toe amputation today. Will continue to monitor. Pt sitting in chair w/ no c/o pain or discomfort. Call light in reach. Pt agrees to use call light before getting OOB.
--- NOTE | 2019-10-01 09:11 | DI.US.S_ITS ---
PROCEDURE: US ARTERIAL DUPLEX LE RT INDICATIONS: RIGHT FOOT SORES TECHNIQUE: Color and pulse Doppler interrogation was performed of the right lower extremity arterial system, with image documentation. COMPARISON: None. FINDINGS: Common femoral artery: 76 cm/sec, with triphasic flow. Deep femoral artery: 39 cm/sec, with biphasic flow. Proximal superficial femoral artery: 124 cm/sec, with biphasic flow. Mid superficial femoral artery: 238 cm/sec, with biphasic flow. Distal superficial femoral artery: 81 cm/sec, with monophasic flow. Popliteal artery: 58 cm/sec, with monophasic flow. Posterior tibial artery: Occluded Anterior tibial artery/dorsalis pedis: Occluded Polanco-scale imaging description: No evidence of inflow disease. Moderate diffuse mid SFA stenotic disease. Distal SFA stenotic disease. No continuous runoff vessel identified. Monophasic waveforms in the distal SFA and popliteal artery. IMPRESSION: Significant right lower extremity arterial disease. Moderate diffuse mid SFA stenotic disease. Distal SFA stenotic disease. No continuous runoff vessel identified. Dictated by: Naeem Wolfe M.D. on 10/01/2019 at 14:28 Approved by: Naeem Wolfe M.D. on 10/01/2019 at 14:39
--- NOTE | 2019-10-01 09:15 | P.CONS_ITS ---
History of Present Illness Consult details Date Patient Seen: 10/01/19 Time Patient Seen: 06:45 Chief complaint: Cellulitis of the right great toe, ISMAEL Reason for consult: Right toe wound, cellulitus Requesting provider: Jayme Aggarwal Narrative: 73-year-old diabetic female seen on consultation for her right great toe wound and cellulitis. She presented through the emergency room after her daughter noticed a wound to the foot with redness coming up the foot and leg. She relates no significant pain to the toe and was not aware of any particular injury. Evidently the wound upon further inspection had maggots on it and she was somewhat confused upon the time of admission. She has since had it cleaned and bandaged, started on iv antibiotics and is resting comfortably. She is not in any pain to the toe. Meds Home Medications and Allergies Home Medications Medication Instructions Recorded Confirmed Type Lantus U-100 Insulin 60 unit SQ DAILY #0 10/19/12 09/29/19 History acetaminophen 325 mg PO PRN PRN #0 10/19/12 09/29/19 History aspirin 81 mg PO DAILY #0 10/19/12 09/29/19 History calcium carbonate 500 mg PO DAILY #0 10/19/12 09/29/19 History esomeprazole magnesium [Nexium] 20 mg PO BEDTIME #0 10/19/12 09/29/19 History nitrofurantoin macrocrystal 50 mg PO DAILY #0 10/19/12 09/29/19 History prednisone 5 mg PO DAILY #0 10/19/12 09/29/19 History tacrolimus [Prograf] 2 mg PO BID #0 10/19/12 09/29/19 History empagliflozin [Jardiance] 10 mg PO DAILY 11/27/18 09/29/19 History furosemide 20 mg PO BID 11/27/18 09/29/19 History icosapent ethyl [Vascepa] 1 g PO BID 11/27/18 09/29/19 History levothyroxine 25 mcg PO DAILY 11/27/18 09/29/19 History pravastatin 20 mg PO DAILY 11/27/18 09/29/19 History insulin lispro [Humalog U-100 20 unit SUBCUT DAILY 09/29/19 09/29/19 History Insulin] metoprolol succinate 25 mg PO BID 09/29/19 09/29/19 History oxycodone 5 mg PO TID PRN 09/29/19 09/29/19 History oxycodone [OxyContin] 10 mg PO BEDTIME 09/29/19 09/29/19 History sertraline 25 mg PO DAILY 09/29/19 09/29/19 History Allergies Allergy/AdvReac Type Severity Reaction Status Date / Time verapamil [VERAPAMIL] Allergy Intermediate RHADOMYOLYS Verified 09/29/19 17:17 IS methadone [METHADONE] Allergy Mild N/V Verified 09/29/19 17:17 propoxyphene [PROPOXYPHENE] Allergy Mild N/V Verified 09/29/19 17:17 morphine Allergy Verified 09/29/19 17:17 Exam Vital Signs (past 8 hours): - 10/01/19 04:40 10/01/19 08:02 10/01/19 09:02 Temperature 96.6 F L 98.7 F Pulse Rate 69 54 L Respiratory Rate 16 17 Blood Pressure 148/85 H 128/54 L Pulse Oximetry 100 98 97 Oxygen Delivery Method Room Air Oxygen Flow Rate 0 Const General: cooperative and comfortable Orientation: alert, awake and oriented x3 Extrem Other: Right great toe has a chronically lifted nail, dystrophic, with erythema and mostly granulating tissue to the entire tip and top where the nail bed would be. It is moist but no purulence. Unable to see bone or tendon, but the tissue on the entire end of the nail is raw with flaky hyperkeratosis around it. Redness extends close to the IPJ of the hallux, and other areas of a little redness and point discoloration to the 2nd and 3rd toes, although no clear b reakdown noted there. Unable to palpate dorsalis pedis pulse, and faintly palpable posterior tibial pulse is available. No crepitus on manipulation or pressure on the toe or foot. Foot is warm, toes are cooler. Hallux unable to gauge a CFT due to wound. Psych Speech and Movement: speech and movement normal Affect: normal affect Attitude: cooperative Judgment: judgment good Objective Labs Result Diagrams: 10/01/19 06:50 10/01/19 06:50 Labs: Laboratory Results - last 24 hr 09/29/19 10/01/19 10/01/19 17:25 06:50 06:50 WBC 6.1 RBC 3.67 L Hgb 11.2 L Hct 33.3 L MCV 90.8 MCH 30.5 MCHC 33.6 RDW 15.6 H Plt Count 83 L Neut % (Auto) 71.3 Lymph % (Auto) 17.0 L [place] % (Auto) 9.2 Eos % (Auto) 2.0 Baso % (Auto) 0.5 Neut # (Auto) 4400 Lymph # (Auto) 1000 L [place] # (Auto) 600 Eos # (Auto) 100 Baso # (Auto) 0 Sodium 137 Potassium 3.6 Chloride 109 H Carbon Dioxide 23 BUN 28 H Creatinine 1.61 H Estimated GFR 31.5 L BUN/Creatinine Ratio 17.4 Glucose 190 H Calcium 8.6 Magnesium 1.6 Total Bilirubin 0.7 Conjugated Bilirubin 0.0 Unconjugated Bilirubin 0.5 AST 16 ALT 8 Alkaline Phosphatase 74 Total Protein 5.8 L Albumin 2.8 L Globulin 3.0 Albumin/Globulin Ratio 0.9 L A. baumannii (PCR) Not detected Autumn albicans (PCR) Not detected C. glabrata (PCR) Not detected C. krusei (PCR) Not detected C. parapsilosis (PCR) Not detected C. tropicalis (PCR) Not detected Enterobacteriac sp PCR Not detected E. cloacae complex PCR Not detected Enterococcus sp PCR Not detected E. coli (PCR) Not detected H. influenzae (PCR) Not detected Klebsiella oxytoca PCR Not detected Klebsiella pneumoniae Not detected List. monocytogenes PCR Not detected N. meningitidis (PCR) Not detected Proteus species (PCR) Not detected Serratia marcescens PCR Not detected Staphylococcus sp PCR Detected H Staph aureus (PCR) Not detected mecA-Methicil Res Gene Detected H Streptococcus sp PCR Not detected Group A Strep (PCR) Not detected Strep agalactiae (PCR) Not detected Strep pneumoniae (PCR) Not detected P. aeruginosa (PCR) Not detected Prashant/B-Vanco Res Genes Not Reportable KPC-Carbap Res Gene PCR Not Reportable 1. MRI Right foot 09/30/2019 IMPRESSION: 1. Ulceration involving dorsal aspect of 1st distal phalanx with surrounding cellulitis. No discrete abscess collection. 2. Suggestion of osteomyelitis involving 1st distal phalanx with subtle bony erosive changes involving dorsal aspect of 1st distal phalangeal tuft. 3. Osteoarthritic changes throughout midfoot and forefoot joints. No acute fracture or dislocation. 4. Forefoot tendons and ligaments are grossly intact. 2. XR FOOT RT MIN 3V 09/29/2019 INDICATIONS: right foot infection, red/swollen + diabetic. TECHNIQUE: 3 views of the foot were acquired. COMPARISON: None. FINDINGS: Examination is limited by overlying material. Bones: Diffuse osteopenia. No fractures or dislocations. No suspicious bony lesions. Soft tissues: No tibiotalar joint effusion. Achilles tendon appears normal. IMPRESSION: Limited evaluation demonstrating no definite acute fracture nor osseous lesion. If symptoms and/or clinical suspicion for pathology persist, further assessment with repeat, or advanced imaging (e.g., CT, MRI, or bone scan) may be helpful for further assessment. Assessment & Plan Assessment & Plan narrative: 73 yo DM female with peripheral neuropathy has an ulcerative wound to the right great toe and suspicion of osteomyelitis to the distal phalanx, being managed for acute onset cellulitis. Discussed the wound and information we have thus far with April and there is the option of biopsy of the hallux bone for culture and then treat with extended period on possible iv antibiotics while undergoing regular wound care and dressing changes, along with minimizing weight to the toe while healing. The other option would be to surgically remove the distal phalanx of the great toe and possibly a little of the next bone in order to reduce the tension on the skin and hopefully eliminate what could be an infected bone and also a long process of healing the ulceration. She may initially have some minor balance concerns on the toe, but with the use of a diabetic-type shoe and appropriate liners, that can help ease her into the transition once the toe area has healed. She and I discussed it and she voiced an understanding of the procedures and options. She stated she would like me to offer what I believe is ultimately the best for her at this time, and I feel that to the be second option, the amputation. She was asked if she would like to discuss this with her daughter and she stated she feels good with the decision and feels her daughter would support her. She believes instead of living at home that after her hospitalization she will be making a transition to be more with her daughter. I discussed my findings with Dr. Javier and voiced an interest in getting an arterial study to check the perfusion of the right foot. If it is in need of further vascular workup for the digital procedure, we may need to transfer her to another hospital with those resources. He will be getting the arterial study ordered, and we'll look in on it to see if she is a candidate for surgery. Until then, she continues to be managed with iv Vancomycin and a cephalosporin empirically until cultures are returned. Time Spent With Patient Time with patient: 25 - 35 minutes
[2019-10-01] MEDS: ASPIRIN EC 81 MG TABLET PO (10:58)
--- NOTE | 2019-10-01 11:09 | PC.NURSE ---
Day shift: Per Dr Yaya alonzo to give aspirin dose.
--- NOTE | 2019-10-01 11:27 | CM.DPC ---
Addendum entered by Lauren Villela R.N. 10/01/19 11:50: Confirmed with patient's daughter, Jennifer, that she is patient's POA. Patient's primary provider is VIKTOR Tristan, who works out of [facility] in [facility]. Daughter stated that she used to be in [place], and patient continued to follow when she went over to [facility], and now. [facility]. Addendum entered by Lauren Villela R.N. 10/01/19 11:35: Jose from [employer] stated that this was also run through Medicaid, and the total deductible will still be $150.00. Original Note: DCP Cont: Jose from [employer] called back. Stated that patient would only need to pay $150.00 for her deductible, and the rest is covered. Daughter, Jennifer, just called back and stated, after our family vote, we really want her to go home, with the COVID thing, and we wouldn't be able to visit her. Updated daughter on cost of medication, stated that it is doable, and she also has Medicaid. Will also check on her insurance as well. P: DCP to continue to follow closely. Should find out today if patient will be transferred out. Family is choosing home rather than skilled. Lauren Villela RN/Metal Trim Erector
--- NOTE | 2019-10-01 18:09 | P.DS_ITS ---
History of Present Illness History of Present Illness Date Patient Seen: 10/01/19 Time Patient Seen: 18:09 Chief complaint: Cellulitis of the right great toe, ISMAEL Narrative: As per VIKTOR Lujan: April Felix is a 73 y.o. female with a history of a right renal transplant, DM type 1, hypertension, hyperlipidemia and depression was brought in by her daughter with a wound on her right great toe. She reported complained of pain, and per the ED provider, the daughter stated there were maggots in her right great toe. Daughter reportedly cleaned up the wound and drove the patient here. Patient denies fever, sweats or chills, shortness of breath, nausea or vomiting, abdominal pain, dysurea, diarrhea or constipaton. While nursing was photographing her foot wounds she complained that her foot shakes, but is not able to identify any symptoms associated with this. She has a history of a right renal transplant and believes they left the old one in. 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 She has a materials technician at [facility] who recommended we treat the cellulitis and to repeat her creatinine, bun and GFR in the am with the intent of transferring her if her creatinine does not improve overnight. Temp was 97.8? blood pressure 133/84, heart rate 69, respiratory rate 18, oxygen saturation of 100% on room air, weight 91.1, BMI 33.4. WBC 7.6, RBC 4.10, hemoglobin 12.5, hematocrit 37.1, platelet count 91, sodium 134, potassium 4.2, chloride 98, CO2 30, creatinine 2.29, BUN 43, GFR 20.9, glucose 321, her A1c was 9.1, lactate was normal, calcium 9.3, bilirubin 1.8, remaining liver enzymes were normal. COVID-19 was negative. Discharge Providers Provider Date of admission: 09/29/19 21:29 Discharge Date: 10/01/19 Primary care physician: Ary Denton PA-C Consults: 09/29/19 22:30 Consult to Wound Care Routine Comment: Consulting Provider: [facility] 09/29/19 22:45 Consult to Dietitian, Adult Routine Comment: Reason For Exam: weight loss for decreased intake and obesity 09/29/19 23:16 Consult to CLINICAL INTERVIEWER - Reconciliation Machine Operator Routine Comment: lives alone, needs more help then what she has. 09/30/19 10:00 Consult to Wound Care Urgent Comment: Consulting Provider: [facility] 09/30/19 17:46 Consult to Wound Care Routine Comment: Consulting Provider: [facility] Discharge provider: Kelvin Javier DO Summary Hospital Course Discharge Diagnosis: Please see hospital course by problem list noted below. Hospital Course: April Felix is a 73 y.o. female with a history of a right renal transplant, DM type 1, hypertension, hyperlipidemia, reported dementia by daughter, and depression who was admitted for a right hallux foot ulcer and mild corresponding cellulitis. MRI was performed which showed osteomyelitis of her right distal 1st phalanx. Ultimately podiatry was consulted and recommended a partial toe amputation however she was found to have very poor flow in her right lower extremity and should be evaluated by vascular surgery for revascularization prior to surgical intervention. 1. right 1st toe foot ulcer and osteomyelitis, acute, present on admission -would continue ceftriaxone and vancomycin at this time. Blood cultures did grow a coag-negative staph in 1 bottle, however both bottles appear to have gram-positive cocci on the Gram stain. It is unclear if this is a contaminant. Follow-up blood cultures drawn on 09/30 are currently with no growth. -MRI w/o contrast showing findings consistent with osteomyelitis of her right distal 1st phalanx. -Pain control with scheduled tylenol and prn oxycodone -orthopedic surgery deferred consultation to Podiatry. Podiatry discussed multiple options with the patient and ultimately elected for a partial toe amputation. However, distal pulses were unable to be palpated so arterial imaging was performed. 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 Recommended transfer for possible reperfusion prior to partial amputation. -patient will transfer to [facility] in [place], Accepting hospitalist Dr. Christianson with vascular consultation in the morning. 2. Possible Staph bacteremia, acute, present on admission -blood cultures from admission in 1 bottle grew coag-negative staph on September 28. Gram stain was positive in both bottles, however. It is unclear if if this represents a contaminant or is from her 1st toe ulceration. Repeat blood cultures on September 30 currently are without growth. - TTE did not show any obvious vegetations. EF was noted to be 55-60% with no significant valvular pathologies. There was pseudonormalization pattern indicating possible diastolic dysfunction. - final duration of antibiotics to be determined. Consider Infectious Disease consultation which is unavailable at [facility]. Recommend continuing ceftriaxone and vancomycin until either bone biopsy is completed or amputation is performed. 3. Acute on chronic CKD, solitary kidney, present on admission -she is on tacrolimus and prednisone which were continued throughout her stay. Consider nephrology consultation for management during evaluation of osteomyel itis and possible revascularization as noted above. -admission creatinine was 2.2, patient was given IV fluids as well as antibiotics and her creatinine has improved to 1.61 on day of transfer. Baseline per report over the phone with materials technician conduit cleaner with [facility] was 1.0-1.5. 4. Diabetes type 1, poorly controlled with a HbA1c of 9.1 -She was continued on glargine 60 units subQ daily, High dose correctional insulin achs with adequate control while admitted with sugars <180 despite holding home lispro 20 units with meals. -Carb controlled diet 5. Hypertension, chronic, present on admission -Continue home dose of metoprolol succinate 25 mg po bid -home lasix of 20 mg was held given ISMAEL on admission. 6. Hypertriglycerdemia, chronic -Continue home dose of pravastatin 20 mg -Continue incosapent 1 g daily 7. Hypothyroidism, chronic -Continue home dose of levothyroixine 25 mcg daily 8. Thrombocytopenia, chronic, present on admission - Platelet counts in the 80s while admitted. DVT prophylaxis was held. Has slowly been downtrending over the course of 2 years from 111 on earliest lab here 2 years ago to the 80s during this admission. - unknown if outside workup has been obtained. 9. Possible dementia - daughter reports patient has known dementia but patient has been alert and o riented and seemingly understands risks and benefits discussions. Left multiple messages but unable to reach daughter for further insight into this. COVID 19 status: negative 09/28, repeated 09/30 for transfer to [facility]. Dispo: transferred to [facility], accepting physician Dr. Christianson, for evaluation by vascular surgery for possible revascularization +/- partial toe amputation. Exam Vital Signs (past 8 hours): - 10/01/19 11:57 10/01/19 15:33 Temperature 97.8 F 96.7 F L Pulse Rate 61 63 Respiratory Rate 17 20 Blood Pressure 132/49 L 178/79 H Pulse Oximetry 98 99 Oxygen Delivery Method Room Air Oxygen Flow Rate 0 Narrative Exam Narrative: GENERAL APPEARANCE: Well developed, well nourished, in no acute distress. SKIN: Inspection of the skin reveals R 1st toe ulceration on the distal aspect, circumferentially with necrosis. Mild erythema over her toe and no tenderness. HEENT: Normocephalic atraumatic, extraocular muscles are intact, oropharynx is clear and mucous membranes are moist, neck is supple without adenopathy NECK: Supple and symmetric. There was no thyroid enlargement, and no tenderness, or masses were felt. CHEST: Normal AP diameter and normal contour without any kyphoscoliosis. LUNGS: Auscultation of the lungs revealed no wheezes, rhonchi, or rales. CARDIOVASCULAR: There was a regular rate and rhythm without any murmurs, gallops, rubs. Peripheral pulses not palpable bilateral LE. ABDOMEN: Soft and nontender with normal bowel sounds. No ascites was noted. MUSCULOSKELETAL: There was no tenderness or effusions noted. Muscle strength and tone were normal. R 1st toe ulceration with mild cellulitis as noted above. EXTREMITIES: No cyanosis, clubbing. trace edema bilaterally in LE NEUROLOGIC: Alert and oriented x 3. Normal affect. Strength is +5/5 in the Upper Extremities and Lower Extremities Bilaterally. Sensation to touch touch was diminished in bilateral feet. Objective Labs Result Diagrams: 10/01/19 06:50 10/01/19 06:50 Labs: Laboratory Results - last 24 hr 10/01/19 10/01/19 06:50 06:50 WBC 6.1 RBC 3.67 L Hgb 11.2 L Hct 33.3 L MCV 90.8 MCH 30.5 MCHC 33.6 RDW 15.6 H Plt Count 83 L Neut % (Auto) 71.3 Lymph % (Auto) 17.0 L [place] % (Auto) 9.2 Eos % (Auto) 2.0 Baso % (Auto) 0.5 Neut # (Auto) 4400 Lymph # (Auto) 1000 L [place] # (Auto) 600 Eos # (Auto) 100 Baso # (Auto) 0 Sodium 137 Potassium 3.6 Chloride 109 H Carbon Dioxide 23 BUN 28 H Creatinine 1.61 H Estimated GFR 31.5 L BUN/Creatinine Ratio 17.4 Glucose 190 H Calcium 8.6 Magnesium 1.6 Total Bilirubin 0.7 Conjugated Bilirubin 0.0 Unconjugated Bilirubin 0.5 AST 16 ALT 8 Alkaline Phosphatase 74 Total Protein 5.8 L Albumin 2.8 L Globulin 3.0 Albumin/Globulin Ratio 0.9 L Discharge Plan Discharge Plan Disposition: [facility] Discharge orders & Medications Follow up/Referrals: Ary Denton PA-C [Primary Care Provider] - Discharge Data Primary Care Provider: Ary Denton I Quality VTE Deep Vein Thrombosis/Pulmonary Embolism Present on Admission: No
[2019-10-01] MEDS: VANCOMYCIN 1,500 MG/300 ML FROZ.PIGGY 150 MG IV (18:58)
[2019-10-01 19:59] LABS: COVID19 -Nasal RAPID Negative (Negative)
[2019-10-01] MEDS: PANTOPRAZOLE 20 MG TABLET PO (20:28)
--- NOTE | 2019-10-01 21:38 | PC.NURSE ---
Evening Shift/Transfer Note- Patient left via EMS to [facility] at 2129. Report called to Taylor ROJAS on at [phone]. Patient left with all personal belongings.
--- NOTE | 2019-10-02 07:59 | CM.DPC ---
[facility] Transfer Per MD yesterday evening 10/01/19, pt has been accepted at [facility] for higher level of care for vascular needs and will be transferred. Plan: Patient transferred to [facility] for higher level of care last night after DCP shift for ongoing medical needs. CORINA Gonzalez
== END 2019-10-01 21:30 | disposition short-term general hospital (02) | DRG 540 ==
LOC: ED 21:24 → AC 09-30 00:09
PROVIDERS: Emergency Medicine; Internal Medicine; Admitting Provider Nurse Practitioner Family; Emergency Provider Emergency Medicine; PCP Physician Assistant; Visit Provider Nurse Practitioner Family
DX: M86.8X7 Other osteomyelitis, ankle and foot (principal); R78.81 Bacteremia; N17.9 Acute kidney failure, unspecified; Z94.0 Kidney transplant status; E10.621 Type 1 diabetes mellitus with foot ulcer; D69.6 Thrombocytopenia, unspecified; L97.519 Non-pressure chronic ulcer of other part of right foot with unspecified severity; E10.65 Type 1 diabetes mellitus with hyperglycemia; B95.8 Unspecified staphylococcus as the cause of diseases classified elsewhere; Z79.4 Long term (current) use of insulin; I10 Essential (primary) hypertension; E03.9 Hypothyroidism, unspecified; E78.1 Pure hyperglyceridemia; Z11.59 Encounter for screening for other viral diseases
CPT/HCPCS: 36415; 73630; 73718; 76776; 80048; 80053; 80076; 82962; 83036; 83605; 83690; 83735; 84145; 84443; 85025; 85610; 85730; 87040; 87150; 87205; 87635; 93005; 93306; 93926; 93971; 96365; 96366; 96367; 99285; J1644; J3370; J7507

== ENCOUNTER 2020-12-02 18:50 | Emergency (ER) | payer MEDICARE, OTHER, MEDICAID, SELFPAY ==
[2019-09-29 22:26] VITALS: BMI 33.4
[2020-12-02] VITALS (10 sets, daily range): BP systolic 118–151; BP diastolic 61–88; PULSE 52–68; RESP 21–30; TEMP 36.6; O2SAT 97–100
--- NOTE | 2020-12-02 19:11 | ED_ITS ---
HPI - Skin/Abscess/Foreign Bdy General Chief complaint: Skin/Abscess/Foreign Body Stated complaint: Increased swelling leg,amputation 2 wks ago toes Time Seen by Provider: 12/02/20 19:03 Source: patient, family and EMS Mode of arrival: EMS History of Present Illness HPI narrative: Patient is a 74-year-old female. Has reported history of d ementia. Patient states that she is here because someone thought that she had a stroke however upon talking with family it is apparent that she is here because concerns about swelling in her left lower extremity. Within the past couple weeks patient had 2 toes removed from her left foot. Secondary to diabetes. Patient does have home health. She lives at home with her daughters as well. Home health was concerned about swelling in the lower extremity/foot for the past couple days and then there was also report of the patient either having some shortness of breath or breathing fast today. Patient is unable to provide any of this HPI. Related Data Home Medications Medication Instructions Recorded Confirmed acetaminophen 325 mg tablet 325 mg PO PRN PRN #0 10/19/12 09/29/19 aspirin 81 mg tablet,delayed 81 mg PO DAILY #0 10/19/12 09/29/19 release calcium carbonate 500 mg calcium 500 mg PO DAILY #0 10/19/12 09/29/19 (1,250 mg) tablet esomeprazole magnesium 20 mg 20 mg PO BEDTIME #0 10/19/12 09/29/19 capsule,delayed release (Nexium) insulin glargine 100 unit/mL 60 unit SQ DAILY #0 10/19/12 09/29/19 subcutaneous solution (Lantus U-100 Insulin) nitrofurantoin macrocrystal 50 mg 50 mg PO DAILY #0 10/19/12 09/29/19 capsule prednisone 5 mg tablet 5 mg PO DAILY #0 10/19/12 09/29/19 tacrolimus 1 mg capsule, 2 mg PO BID #0 10/19/12 09/29/19 immediate-release (Prograf) empagliflozin 10 mg tablet 10 mg PO DAILY 11/27/18 09/29/19 (Jardiance) furosemide 20 mg tablet 20 mg PO BID 11/27/18 09/29/19 icosapent ethyl 1 gram capsule 1 g PO BID 11/27/18 09/29/19 (Vascepa) levothyroxine 25 mcg tablet 25 mcg PO DAILY 11/27/18 09/29/19 pravastatin 20 mg tablet 20 mg PO DAILY 11/27/18 09/29/19 insulin lispro 100 unit/mL 20 unit SUBCUT DAILY 09/29/19 09/29/19 subcutaneous solution (Humalog U-100 Insulin) metoprolol succinate 25 mg 25 mg PO BID 09/29/19 09/29/19 tablet,extended release 24 hr oxycodone 10 mg tablet,crush 10 mg PO BEDTIME 09/29/19 09/29/19 resistant,extended release 12 hr (OxyContin) oxycodone 5 mg tablet 5 mg PO TID PRN 09/29/19 09/29/19 sertraline 25 mg tablet 25 mg PO DAILY 09/29/19 09/29/19 Allergies Allergy/AdvReac Type Severity Reaction Status Date / Time verapamil [VERAPAMIL] Allergy Intermediate RHADOMYOLYS Verified 09/29/19 17:17 IS methadone [METHADONE] Allergy Mild N/V Verified 09/29/19 17:17 propoxyphene [PROPOXYPHENE] Allergy Mild N/V Verified 09/29/19 17:17 morphine Allergy Verified 09/29/19 17:17 Review of Systems Review of Systems ROS Unobtainable: Unobtainable due to mental status/LOC Patient History Medical History ISMAEL (acute kidney injury) Cellulitis Dementia Diabetes type 2, uncontrolled Diarrhea Essential hypertension Hypertriglyceridemia Hypothyroid Surgical History H/O right mastectomy Kidney transplant recipient Family History Father Old age Other Renal failure Social History household members: none Smoking Status: Never smoker Smoking Status: Never smoker alcohol intake frequency: 0-2 drinks per day Substance Use Type: does not use Exam Initial Vital Signs Initial Vital Signs: Vital Signs Temperature 97.9 F 12/02/20 18:55 Pulse Rate 68 12/02/20 18:55 Respiratory Rate 22 12/02/20 18:55 Pulse Oximetry 100 12/02/20 18:55 HENMT Head: normal to inspection and atraumatic Resp Effort & Inspection: normal respiratory effort, not labored and not tachypneic Auscultation: clear to auscultation bilaterally Cardio Rate: regular rate Rhythm: regular rhythm Skin Other: Redness located on the left foot. Is also some redness located on the distal aspect of the left tibia. Not warm to the touch. No drainage. The stitches over the left great toe and lesser toe appear well. No drainage. Neuro General: patient alert and patient awake Extrem Other: Mild swelling to the left lower extremity but appears to be equal to the right lower extremity. The surgical incisions of the toes left foot consistent with stated history appear well. Scores Wells' Criteria for DVT Active Cancer (Treatment within 6 months): No Bedridden recently >3 days or major surgery within 4 weeks: Yes Calf Swelling >3cm compared to other leg: No Collateral (nonvericose) superficial veins present: No Entire leg swollen: No Localized tenderness along the deep vein system: No Pitting edema, confined to symtomatic leg: No Paralysis, paresis, or recent plaster immobilization of ext: No Previously documented DVT: No Alternative dx to DVT as likely or more likely: Yes Wells' criteria for DVT: -1 Course Orders Ordered: ED Orders 12/02/20 19:09 XR foot LT min 3V Stat 12/02/20 19:12 XR chest 1V Stat EKG-12 Lead Stat 12/02/20 19:16 C-Reactive Protein Quant Stat Complete Blood Count AUTO DIFF Stat Comprehensive Metabolic Panel Stat Erythrocyte Sedimentation Rate Stat Lactate (Lactic Acid) Stat Lipase Stat Troponin & CK Cardiac Panel Stat 12/02/20 19:23 Blood Culture Stat Vital Signs Vital signs: Vital Signs - 8 hr 12/02/20 18:55 12/02/20 19:34 12/02/20 20:00 Temperature 97.9 F Pulse Rate 68 62 63 Respiratory Rate 22 22 23 Blood Pressure Pulse Oximetry 100 97 97 12/02/20 20:01 12/02/20 20:30 12/02/20 20:31 Temperature Pulse Rate 63 55 L 54 L Respiratory Rate 21 22 21 Blood Pressure 131/62 118/88 Pulse Oximetry 98 98 98 12/02/20 21:00 12/02/20 21:01 Temperature Pulse Rate 55 L 52 L Respiratory Rate 24 30 H Blood Pressure 151/61 H Pulse Oximetry 99 100 MDM - Skin/Abscess/Foreign Bdy Lab Data Attestation: I reviewed the patient's lab results. Result diagrams: 12/02/20 19:16 12/02/20 19:16 Labs: Lab Results 12/02/20 12/02/20 12/02/20 Range/Units 19:16 19:16 19:16 WBC 8.3 (4.5-11.0) X10^3/uL RBC 3.61 L (4.0-5.2) X10^6/uL Hgb 10.4 L (12.0-16.0) g/dL Hct 32.1 L (36-46) % MCV 89.0 (80-100) fL MCH 28.9 (26-34) PG MCHC 32.4 (30-36) % RDW 16.4 H (11.6-14.8) % Plt Count 97 L (150-400) X10^3/uL Neut % (Auto) 83.7 H (50-75) % Lymph % (Auto) 10.8 L (25-40) % [place] % (Auto) 4.6 (3-14) % Eos % (Auto) 0.6 L (2-4) % Baso % (Auto) 0.3 (0-2) % Neut # (Auto) 7000 (4951-6075) /uL Lymph # (Auto) 900 L (1233-2769) /uL [place] # (Auto) 400 (0-900) /uL Eos # (Auto) 100 (0-450) /uL Baso # (Auto) 0 (0-100) /uL ESR 48 H (0-20) MM/HR Sodium 134 L (137-145) mmol/L Potassium 4.7 (3.4-5.1) mmol/L Chloride 101 (98-107) mmol/L Carbon Dioxide 25 (22-32) mmol/L BUN 68 H (7-17) mg/dL Creatinine 2.64 H (0.52-1.04) mg/dL Estimated GFR 17.7 L (>60) mL/min BUN/Creatinine Ratio 25.8 H (6-22) Glucose 349 H (80-110) mg/dL Lactate (0.7-2.1) mmol/L Calcium 8.8 (8.4-10.2) mg/dL Total Bilirubin 0.7 (0.2-1.3) mg/dL AST 42 H (14-36) IU/L ALT 20 (<35) IU/L Alkaline Phosphatase 121 (38-126) U/L Total Creatine Kinase (30-135) U/L CK-MB (CK-2) CK-MB (CK-2) Rel Index Troponin I (0.01-0.034) ng/mL C-Reactive Protein 3.6 H (<1.0) mg/dL Total Protein 6.4 (6.3-8.2) g/dL Albumin 3.2 L (3.5-5.0) g/dL Globulin 3.2 (1.7-4.1) g/dL Albumin/Globulin Ratio 1.0 (1.0-2.8) Lipase 60 (23-300) U/L 12/02/20 12/02/20 Range/Units 19:16 19:16 WBC (4.5-11.0) X10^3/uL RBC (4.0-5.2) X10^6/uL Hgb (12.0-16.0) g/dL Hct (36-46) % MCV (80-100) fL MCH (26-34) PG MCHC (30-36) % RDW (11.6-14.8) % Plt Count (150-400) X10^3/uL Neut % (Auto) (50-75) % Lymph % (Auto) (25-40) % [place] % (Auto) (3-14) % Eos % (Auto) (2-4) % Baso % (Auto) (0-2) % Neut # (Auto) (2679-8455) /uL Lymph # (Auto) (1570-1040) /uL [place] # (Auto) (0-900) /uL Eos # (Auto) (0-450) /uL Baso # (Auto) (0-100) /uL ESR (0-20) MM/HR Sodium (137-145) mmol/L Potassium (3.4-5.1) mmol/L Chloride (98-107) mmol/L Carbon Dioxide (22-32) mmol/L BUN (7-17) mg/dL Creatinine (0.52-1.04) mg/dL Estimated GFR (>60) mL/min BUN/Creatinine Ratio (6-22) Glucose (80-110) mg/dL Lactate 1.2 (0.7-2.1) mmol/L Calcium (8.4-10.2) mg/dL Total Bilirubin (0.2-1.3) mg/dL AST (14-36) IU/L ALT (<35) IU/L Alkaline Phosphatase (38-126) U/L Total Creatine Kinase 58 (30-135) U/L CK-MB (CK-2) TNP CK-MB (CK-2) Rel Index TNP Troponin I 0.015 (0.01-0.034) ng/mL C-Reactive Protein (<1.0) mg/dL Total Protein (6.3-8.2) g/dL Albumin (3.5-5.0) g/dL Globulin (1.7-4.1) g/dL Albumin/Globulin Ratio (1.0-2.8) Lipase (23-300) U/L Imaging Data Extremity x-ray #1: Radiologist's Impression: [address] [id number] ReportSigned Patient: April Felix [facility]#: [id number]: 1945cct:[id number]/Sex: 74 / FDate of Service: 12/02/20Loc: EDAccession Number: [id number] Procedure: XR foot LT min 3V Ordering Provider: Rhett Patel D.O. PROCEDURE: XR FOOT LT MIN 3V INDICATIONS: swelling after amputation eval for osteo TECHNIQUE: Three views of the foot were acquired. COMPARISON: [facility], CR, XR FOOT RT MIN 3V, 09/29/2019, 17:29. FINDINGS: Bones: Severe demineralization. There is been amputation of the 1st and 3rd phalanges across the proximal phalanx. There is slight fragmentation of the 3rd phalanx. There are hammertoe deformities two through five. Bone alignment is otherwise normal. Soft tissues: No tibiotalar joint effusion. Achilles tendon appears normal. N o soft tissue gas. Thin linear radiodensity, potentially a needle fragment measuring 8 mm is present in the lateral soft tissues of the foot at the hindfoot level. There is heavy vascular calcification. IMPRESSION: 1. No soft tissue gas. 2. 1st and 3rd digit debridement with expected appearance. Osteomyelitis is not excluded in the early phase. 3. Possible needle fragment in the lateral hindfoot soft tissues. Dictated by: Ofe Lynn M.D. on 12/02/2020 at 20:36 Approved by: Ofe Lynn M.D. on 12/02/2020 at 20:38 Chest x-ray: Radiologist's Impression: [address] [id number] ReportSigned Patient: April Felix MMR#: [id number]: 7Acct:[id number]/Sex: 74 / FDate of Service: 12/02/20Loc: EDAccession Number: [id number] Procedure: XR chest 1V Ordering Provider: Rhett Patel D.O. PROCEDURE: XR CHEST 1V INDICATIONS: SOB TECHNIQUE: One view of the chest was acquired. COMPARISON: [facility], , XR CHEST 1V, 11/27/2018, 11:11. FINDINGS: Surgical changes and devices: Several surgical clips over the right chest wall and axilla. Lungs and pleura: Diffuse interstitial thickening. Mediastinum: Mild, stable cardiomegaly with central vascular congestion, slightly increased compared to prior. Otherwise stable mediastinal contour. Bones and chest wall: No suspicious bony lesions. Overlying soft tissues appear unremarkable. IMPRESSION: 1. Mild central vascular and interstitial congestion, increased over prior. In the setting of cardiomegaly, CHF should be considered. Dictated by: Ofe Lynn M.D. on 12/02/2020 at 20:39 Approved by: Ofe Lynn M.D. on 12/02/2020 at 20:39 ECG Data Attestation: I personally reviewed and interpreted this ECG as follows: Interpretation: Sinus bradycardia Ventricular rate of 59 Occasional PACs QRS 82 milliseconds QTC 451 milliseconds Normal axis No ST T wave changes MDM Narrative Medical decision making narrative: Patient's labs appear well. Have low suspicion for cellulitis based on her presentation today. I feel that the redness his postsurgical and also individual who has poor peripheral vascular disease. The wounds appear to be healing well. Low suspicion for osteo. Low suspicion for DVT based on her exam today. She is not having any respiratory distress. No indication for antibiotics. Patient is at her baseline mental status. I did discuss all this with the patient's daughter. There were no abnormal findings on the physical exam with regard to the potential foreign body in the left heel seen on the x-ray. I will hold on any incision for now. Discharge Plan Departure Patient Disposition: Home Clinical Impression: Diabetes, Peripheral vascular disease, Healing of postoperative wound Activity Restrictions/Additional Instructions: The wounds today do not appear to be infected. She does need to continue all of the instructions given to her by the surgeon who performed the amputations. She can continue to take all of her medications as directed. Contact her primary doctor for a follow-up. Return to the emergency department for any new or worsening symptoms. Prescriptions: No Action acetaminophen 325 mg Tablet 325 mg PO PRN PRN (Reason: pain) Qty: 0 RF: 0 Lantus U-100 Insulin 100 UNIT/1 ML solution 60 unit SQ DAILY Qty: 0 RF: 0 aspirin 81 MG tablet,delayed release (DR/EC) 81 mg PO DAILY Qty: 0 RF: 0 calcium carbonate 500 mg calcium (1,250 mg) Tablet 500 mg PO DAILY Qty: 0 RF: 0 tacrolimus [Prograf] 1 MG capsule 2 mg PO BID Qty: 0 RF: 0 esomeprazole magnesium [Nexium] 20 mg Capsule,Delayed Release(Dr/Ec) 20 mg PO BEDTIME Qty: 0 RF: 0 nitrofurantoin macrocrystal 50 MG capsule 50 mg PO DAILY Qty: 0 RF: 0 prednisone 5 MG tablet 5 mg PO DAILY Qty: 0 RF: 0 levothyroxine 25 mcg tablet 25 mcg PO DAILY RF: 0 pravastatin 20 mg tablet 20 mg PO DAILY RF: 0 furosemide 20 mg tablet 20 mg PO BID RF: 0 Vascepa 1 gram capsule 1 g PO BID RF: 0 Jardiance 10 mg tablet 10 mg PO DAILY RF: 0 oxycodone 5 mg tablet 5 mg PO TID PRN (Reason: Pain (Scale Score 7-10)) RF: 0 sertraline 25 mg tablet 25 mg PO DAILY RF: 0 metoprolol succinate 25 mg tablet extended release 24 hr 25 mg PO BID RF: 0 insulin lispro [Humalog U-100 Insulin] 100 unit/mL solution 20 unit SUBCUT DAILY RF: 0 oxycodone [OxyContin] 10 mg Tablet,Oral Only,Ext.Rel.12 Hr 10 mg PO BEDTIME RF: 0 Referrals: Ary Denton PA-C [Non-Staff] -
[2020-12-02 19:32] LABS: Add Manual Diff / Slide Review NO; Basophils Absolute Auto 0 /uL (0-100); Basophils Percent Auto 0.3 % (0-2); Eosinophils Absolute Auto 100 /uL (0-450); Eosinophils Percent Auto 0.6 % (2-4); Hematocrit 32.1 % (36-46); Hemoglobin 10.4 g/dL (12.0-16.0); Lymphocytes Absolute Auto 900 /uL (1100-4500); Lymphocytes Percent Auto 10.8 % (25-40); Mean Corpuscular HGB Conc 32.4 % (30-36); Mean Corpuscular Hemoglobin 28.9 PG (26-34); Monocytes Absolute Auto 400 /uL (0-900); Monocytes Percent Auto 4.6 % (3-14); Neutrophils Absolute Auto 7000 /uL (1500-7000); Neutrophils Percent Auto 83.7 % (50-75); Platelet Count 97 X10^3/uL (150-400); Red Blood Cell Count 3.61 X10^6/uL (4.0-5.2); Red Cell Distribution Width 16.4 % (11.6-14.8); White Blood Cell Count 8.3 X10^3/uL (4.5-11.0)
[2020-12-02 19:54] LABS: Creatine Kinase 58 U/L (30-135)
[2020-12-02 19:55] LABS: Lactate (Lactic Acid) 1.2 mmol/L (0.7-2.1)
[2020-12-02 19:56] LABS: Alanine Aminotransferase 20 IU/L (<35); Albumin 3.2 g/dL (3.5-5.0); Alkaline Phosphatase 121 U/L (38-126); Aspartate Aminotransferase 42 IU/L (14-36); BUN Creatinine Ratio 25.8 (6-22); Bilirubin Total 0.7 mg/dL (0.2-1.3); Blood Urea Nitrogen 68 mg/dL (7-17); Calcium 8.8 mg/dL (8.4-10.2); Carbon Dioxide 25 mmol/L (22-32); Chloride 101 mmol/L (98-107); Estimated Glomerular Filt Rate 17.7 mL/min (>60); Globulin 3.2 g/dL (1.7-4.1); Glucose 349 mg/dL (80-110); HEMOLYSIS < 15 (0-50); Lipase 60 U/L (23-300); Potassium 4.7 mmol/L (3.4-5.1); Sodium 134 mmol/L (137-145); Total Protein 6.4 g/dL (6.3-8.2)
[2020-12-02 19:58] LABS: C-Reactive Protein Quant 3.6 mg/dL (<1.0)
[2020-12-02 20:04] LABS: Erythrocyte Sedimentation Rate 48 MM/HR (0-20)
[2020-12-02 20:07] LABS: Troponin I 0.015 ng/mL (0.01-0.034)
== END 2020-12-02 22:10 | disposition home or self-care (01) ==
PROVIDERS: Emergency Provider Emergency Medicine; PCP Internal Medicine
DX: I73.9 Peripheral vascular disease, unspecified (principal); E11.9 Type 2 diabetes mellitus without complications; R06.02 Shortness of breath; Z48.00 Encounter for change or removal of nonsurgical wound dressing
CPT/HCPCS: 71045; 73630; 80053; 82550; 83605; 83690; 84484; 85025; 85651; 86140; 87040; 93005; 99283; 99284

== ENCOUNTER 2020-12-13 14:31 | Emergency (ER) | payer MEDICARE, OTHER, MEDICAID, SELFPAY ==
[2019-09-29 22:26] VITALS: BMI 33.4
[2020-12-13] VITALS (12 sets, daily range): BP systolic 135–156; BP diastolic 65–87; PULSE 70–78; RESP 18–23; TEMP 36.5; O2SAT 96–100
--- NOTE | 2020-12-13 15:03 | ED.EXTPRO ---
HPI - Extremity Problem General Chief complaint: Extremity Problem,Nontraumatic Stated complaint: CELLULITIS Time Seen by Provider: 12/13/20 14:50 Source: patient Mode of arrival: Ambulatory Limitations: altered mental status History of Present Illness HPI Narrative: Patient is a 75-year-old female. Initial complaint was concern for cellulitis. Patient states she is actually here because she does not feel very well and was having some shortness of breath. It was then brought to my attention that the patient does have a history of dementia. A written note they came with her states that she recently had toes amputated on her left foot. There was some concern about some discoloration at the base of the residual great toe on the left. She also had some redness on her lower extremity on the right that was concern for an infection. Related Data Home Medications Medication Instructions Recorded Confirmed acetaminophen 325 mg tablet 325 mg PO PRN PRN #0 10/19/12 09/29/19 aspirin 81 mg tablet,delayed 81 mg PO DAILY #0 10/19/12 09/29/19 release calcium carbonate 500 mg calcium 500 mg PO DAILY #0 10/19/12 09/29/19 (1,250 mg) tablet esomeprazole magnesium 20 mg 20 mg PO BEDTIME #0 10/19/12 09/29/19 capsule,delayed release (Nexium) insulin glargine 100 unit/mL 60 unit SQ DAILY #0 10/19/12 09/29/19 subcutaneous solution (Lantus U-100 Insulin) nitrofurantoin macrocrystal 50 mg 50 mg PO DAILY #0 10/19/12 09/29/19 capsule prednisone 5 mg tablet 5 mg PO DAILY #0 10/19/12 09/29/19 tacrolimus 1 mg capsule, 2 mg PO BID #0 10/19/12 09/29/19 immediate-release (Prograf) empagliflozin 10 mg tablet 10 mg PO DAILY 11/27/18 09/29/19 (Jardiance) furosemide 20 mg tablet 20 mg PO BID 11/27/18 09/29/19 icosapent ethyl 1 gram capsule 1 g PO BID 11/27/18 09/29/19 (Vascepa) levothyroxine 25 mcg tablet 25 mcg PO DAILY 11/27/18 09/29/19 pravastatin 20 mg tablet 20 mg PO DAILY 11/27/18 09/29/19 insulin lispro 100 unit/mL 20 unit SUBCUT DAILY 09/29/19 09/29/19 subcutaneous solution (Humalog U-100 Insulin) metoprolol succinate 25 mg 25 mg PO BID 09/29/19 09/29/19 tablet,extended release 24 hr oxycodone 10 mg tablet,crush 10 mg PO BEDTIME 09/29/19 09/29/19 resistant,extended release 12 hr (OxyContin) oxycodone 5 mg tablet 5 mg PO TID PRN 09/29/19 09/29/19 sertraline 25 mg tablet 25 mg PO DAILY 09/29/19 09/29/19 Previous Rx's Medication Instructions Recorded cephalexin 500 mg capsule 500 mg PO QID 5 Days #20 cap 12/13/20 Allergies Allergy/AdvReac Type Severity Reaction Status Date / Time verapamil [VERAPAMIL] Allergy Intermediate RHADOMYOLYS Verified 09/29/19 17:17 IS methadone [METHADONE] Allergy Mild N/V Verified 09/29/19 17:17 propoxyphene [PROPOXYPHENE] Allergy Mild N/V Verified 09/29/19 17:17 morphine Allergy Verified 09/29/19 17:17 Review of Systems Constitutional Constitutional: Reports fatigue and Denies fever(s) Cardiovascular Cardiovascular: Denies chest pain and Denies dyspnea Respiratory Respiratory: Denies dyspnea Musculoskeletal Musculoskeletal: Reports system reviewed and no additional complaints, except as documented and Reports as per HPI Integumentary/Breasts Skin/Breast: Reports system reviewed and no additional complaints, except as documented and Reports as per HPI Neurologic Neurologic: Reports system reviewed and no additional complaints, except as documented and Reports as per HPI Endocrine Endocrine: Reports fatigue Hematologic/Lymphatic On Anticoagulants: No Patient History Medical History ISMAEL (acute kidney injury) Cellulitis Dementia Diabetes type 2, uncontrolled Diarrhea Essential hypertension Hypertriglyceridemia Hypothyroid Surgical History H/O right mastectomy Kidney transplant recipient Family History Father Old age Other Renal failure Social History household members: none Smoking Status: Never smoker Smoking Status: Never smoker alcohol intake frequency: 0-2 drinks per day Substance Use Type: does not use Exam Initial Vital Signs Initial Vital Signs: Vital Signs Temperature 97.7 F 12/13/20 14:44 Pulse Rate 70 12/13/20 14:44 Respiratory Rate 23 12/13/20 14:44 Blood Pressure 135/83 12/13/20 14:44 Pulse Oximetry 100 12/13/20 14:44 HENMT Head: normal to inspection and normocephalic Resp Effort & Inspection: normal respiratory effort Auscultation: clear to auscultation bilaterally Cardio Rate: regular rate Rhythm: regular rhythm Heart Sounds: murmur Skin Other: Patient does have circumferential redness to the distal 1/3 of her right tib-fib. It is not warm to the touch. It is not distal to her ankle. She does have some bruising up the inside of her right lower extremity. Patient also has stitches placed on her 1st and 4th toe on the left foot. These appear well. No drainage. There is an area of whiteness it is more consistent with a pressure sore on the plantar aspect of the left foot at the base of the residual great toe. No drainage. Neuro Other: Patient knows where she is but does not know the year. Seem somewhat confused about why she is here. Extrem Other: Patient with swelling to her right lower extremity and tender along the calf muscle on the right. Psych Appearance: well kempt Course Orders Ordered: ED Orders 12/13/20 14:50 C-Reactive Protein Quant Stat Complete Blood Count AUTO DIFF Stat Comprehensive Metabolic Panel Stat Erythrocyte Sedimentation Rate Stat 12/13/20 15:04 US periph venous low extrem rt Stat 12/13/20 15:22 Partial Thromboplastin Time Stat Prothrombin Time INR Stat Vital Signs Vital signs: Vital Signs - 8 hr 12/13/20 14:44 12/13/20 15:25 12/13/20 15:27 Temperature 97.7 F Pulse Rate 70 71 77 Respiratory Rate 23 18 Blood Pressure 135/83 148/77 H Pulse Oximetry 100 100 99 12/13/20 15:30 12/13/20 15:31 12/13/20 16:00 Temperature Pulse Rate 71 72 74 Respiratory Rate 18 Blood Pressure 147/65 H 149/73 H Pulse Oximetry 99 99 100 12/13/20 16:30 12/13/20 16:31 12/13/20 17:00 Temperature Pulse Rate 75 75 74 Respiratory Rate Blood Pressure 145/87 H 156/87 H Pulse Oximetry 98 98 98 MDM - Extremity (Nontraumatic) Lab Data Result diagrams: 12/13/20 14:50 12/13/20 14:50 Labs: Lab Results 12/13/20 12/13/20 12/13/20 Range/Units 14:50 14:50 15:22 WBC 9.9 (4.5-11.0) X10^3/uL RBC 3.63 L (4.0-5.2) X10^6/uL Hgb 10.4 L (12.0-16.0) g/dL Hct 32.9 L (36-46) % MCV 90.6 (80-100) fL MCH 28.7 (26-34) PG MCHC 31.7 (30-36) % RDW 17.3 H (11.6-14.8) % Plt Count 73 L (150-400) X10^3/uL Neut % (Auto) 86.7 H (50-75) % Lymph % (Auto) 7.2 L (25-40) % Alpine % (Auto) 5.8 (3-14) % Eos % (Auto) 0.2 L (2-4) % Baso % (Auto) 0.1 (0-2) % Neut # (Auto) 8600 H (6376-6677) /uL Lymph # (Auto) 700 L (2957-7574) /uL Alpine # (Auto) 600 (0-900) /uL Eos # (Auto) 0 (0-450) /uL Baso # (Auto) 0 (0-100) /uL ESR 44 H (0-20) MM/HR PT 13.7 H (10.1-12.7) SECONDS INR 1.2 (0.9-1.3) APTT 31 (26.4-36.2) SECONDS Sodium 132 L (137-145) mmol/L Potassium 4.6 (3.4-5.1) mmol/L Chloride 100 (98-107) mmol/L Carbon Dioxide 25 (22-32) mmol/L BUN 52 H (7-17) mg/dL Creatinine 2.24 H (0.52-1.04) mg/dL Estimated GFR 21.4 L (>60) mL/min BUN/Creatinine Ratio 23.2 H (6-22) Glucose 342 H (80-110) mg/dL Calcium 8.8 (8.4-10.2) mg/dL Total Bilirubin 1.1 (0.2-1.3) mg/dL AST 24 (14-36) IU/L ALT 17 (<35) IU/L Alkaline Phosphatase 95 (38-126) U/L C-Reactive Protein 8.9 H (<1.0) mg/dL Total Protein 6.4 (6.3-8.2) g/dL Albumin 3.3 L (3.5-5.0) g/dL Globulin 3.1 (1.7-4.1) g/dL Albumin/Globulin Ratio 1.1 (1.0-2.8) Urine Dip Bedside Urine Glucose 100 mg/dl Bedside Urine Bilirubin - Negative Bedside Urine Ketone - Negative Urine Specific Constable 1.015 Bedside Urine Occult Blood +/- Bedside Urine pH 6.0 Bedside Urine Protein + 30 Bedside Urine Urobilinogen - Negative Bedside Urine Nitrite - Negative Bedside Urine Leukocytes +/- 15 Esterase Imaging Data US - DVT: Radiologist's Impression: [address] [address]Akroxaboed ReportSigned Patient: April Felix [facility]#: [id number]: 1945cct:[id number]/Sex: 75 / FDate of Service: 12/13/20Loc: EDAccession Number: [id number] Procedure: [facility] venous low extrem rt Ordering Provider: Rhett Patel D.O. PROCEDURE: [facility] VENOUS LOW EXTREM RT INDICATIONS: EDEMA TECHNIQUE: Real-time imaging, as well as color and pulse Doppler interrogation, were performed of the lower extremity deep veins from the inguinal ligament to the popliteal fossa. COMPARISON: [facility], PERIP VENOUS LOW EXTREM RT, 09/29/2019, 18:11. FINDINGS: The common femoral, femoral and popliteal veins are normally compressible, and free of intraluminal thrombus. Color and pulse Doppler demonstrate normal phasic intraluminal flow. There is normal augmentation response to distal compression maneuver. IMPRESSION: Negative for deep venous thrombosis. Dictated by: Chidi Irizarry M.D. on 12/13/2020 at 15:30 Approved by: Chidi Irizarry M.D. on 12/13/2020 at 15:[address] [facility] Narrative Medical decision making narrative: Patient's labs do show an elevation in ESR and CRP however she has obvious venous stasis issues with her lower extremities. Also had recent surge consistent of toe amputations on her left foot. I did discuss the patient with her daughter. It appears that the redness that is on her right lower extremity has progressed over the past 24-36 hours. There is no crepitus in the area. I have low suspicion for necrotizing fasciitis. Has a more prominent appearance of a venous stasis change but because of the progression over the past couple days we will start her on antibiotics. She also has what appears to be pressure ulcers on her left foot. The stitches appear well. Does not appear to be any signs of an infection in this area. The patient's daughter states that when she becomes more confused it frequently is urinary tract in fraction. Her urinalysis today does not show any signs of infection however we will place her on Keflex and this would treat any infection. Will discharge home. Told patient's daughter that she should follow up with the operative surgeon sometime this week. Given return precautions and follow-up instructions. Daughter expressed understanding and agreement. Discharge Plan Departure Patient Disposition: Home Clinical Impression: Cellulitis Instructions: DI for Cellulitis -- Adult Activity Restrictions/Additional Instructions: I recommend that she continue to take all of her medications as directed. Will start her on antibiotics because of the redness in her right leg however this potentially could be because of issues with the vasculature in her legs and not an infection. I do recommend you contact the operative surgeon for an appointment later this week. She can return to the emergency department for any new or worsening symptoms Prescriptions: New cephalexin 500 mg capsule 500 mg PO QID 5 Days Qty: 20 RF: 0 No Action acetaminophen 325 mg Tablet 325 mg PO PRN PRN (Reason: pain) Qty: 0 RF: 0 Lantus U-100 Insulin 100 UNIT/1 ML solution 60 unit SQ DAILY Qty: 0 RF: 0 aspirin 81 MG tablet,delayed release (DR/EC) 81 mg PO DAILY Qty: 0 RF: 0 calcium carbonate 500 mg calcium (1,250 mg) Tablet 500 mg PO DAILY Qty: 0 RF: 0 tacrolimus [Prograf] 1 MG capsule 2 mg PO BID Qty: 0 RF: 0 esomeprazole magnesium [Nexium] 20 mg Capsule,Delayed Release(Dr/Ec) 20 mg PO BEDTIME Qty: 0 RF: 0 nitrofurantoin macrocrystal 50 MG capsule 50 mg PO DAILY Qty: 0 RF: 0 prednisone 5 MG tablet 5 mg PO DAILY Qty: 0 RF: 0 levothyroxine 25 mcg tablet 25 mcg PO DAILY RF: 0 pravastatin 20 mg tablet 20 mg PO DAILY RF: 0 furosemide 20 mg tablet 20 mg PO BID RF: 0 Vascepa 1 gram capsule 1 g PO BID RF: 0 Jardiance 10 mg tablet 10 mg PO DAILY RF: 0 oxycodone 5 mg tablet 5 mg PO TID PRN (Reason: Pain (Scale Score 7-10)) RF: 0 sertraline 25 mg tablet 25 mg PO DAILY RF: 0 metoprolol succinate 25 mg tablet extended release 24 hr 25 mg PO BID RF: 0 insulin lispro [Humalog U-100 Insulin] 100 unit/mL solution 20 unit SUBCUT DAILY RF: 0 oxycodone [OxyContin] 10 mg Tablet,Oral Only,Ext.Rel.12 Hr 10 mg PO BEDTIME RF: 0 Referrals: Ary Denton PA-C [Primary Care Provider] -
[2020-12-13 15:10] LABS: Add Manual Diff / Slide Review NO; Basophils Absolute Auto 0 /uL (0-100); Basophils Percent Auto 0.1 % (0-2); Eosinophils Absolute Auto 0 /uL (0-450); Eosinophils Percent Auto 0.2 % (2-4); Hematocrit 32.9 % (36-46); Hemoglobin 10.4 g/dL (12.0-16.0); Lymphocytes Absolute Auto 700 /uL (1100-4500); Lymphocytes Percent Auto 7.2 % (25-40); Mean Corpuscular HGB Conc 31.7 % (30-36); Mean Corpuscular Hemoglobin 28.7 PG (26-34); Mean Corpuscular Volume 90.6 fL (80-100); Monocytes Absolute Auto 600 /uL (0-900); Monocytes Percent Auto 5.8 % (3-14); Neutrophils Absolute Auto 8600 /uL (1500-7000); Neutrophils Percent Auto 86.7 % (50-75); Platelet Count 73 X10^3/uL (150-400); Red Blood Cell Count 3.63 X10^6/uL (4.0-5.2); Red Cell Distribution Width 17.3 % (11.6-14.8); White Blood Cell Count 9.9 X10^3/uL (4.5-11.0)
[2020-12-13 15:18] LABS: Alanine Aminotransferase 17 IU/L (<35); Albumin 3.3 g/dL (3.5-5.0); Albumin Globulin Ratio 1.1 (1.0-2.8); Alkaline Phosphatase 95 U/L (38-126); Aspartate Aminotransferase 24 IU/L (14-36); BUN Creatinine Ratio 23.2 (6-22); Bilirubin Total 1.1 mg/dL (0.2-1.3); Blood Urea Nitrogen 52 mg/dL (7-17); C-Reactive Protein Quant 8.9 mg/dL (<1.0); Calcium 8.8 mg/dL (8.4-10.2); Carbon Dioxide 25 mmol/L (22-32); Chloride 100 mmol/L (98-107); Estimated Glomerular Filt Rate 21.4 mL/min (>60); Globulin 3.1 g/dL (1.7-4.1); Glucose 342 mg/dL (80-110); HEMOLYSIS < 15 (0-50); Potassium 4.6 mmol/L (3.4-5.1); Sodium 132 mmol/L (137-145); Total Protein 6.4 g/dL (6.3-8.2)
[2020-12-13 15:40] LABS: Erythrocyte Sedimentation Rate 44 MM/HR (0-20)
[2020-12-13 15:43] LABS: INR 1.2 (0.9-1.3); Prothrombin Time 13.7 SECONDS (10.1-12.7)
[2020-12-13 15:46] LABS: PTT Partial Thromboplastin Tim 31 SECONDS (26.4-36.2)
--- NOTE | 2020-12-13 17:44 | PC.NURSE ---
Bilateral foot dressings replaced by this RN. Xeroform and nonadherent dressing applied to suture sites on L toes. Covered in kerlex and marcello wrap. Nonadherent, kerlex, and marcello applied to R foot.
[2020-12-13 19:03] LABS: Bacteria Urine Many (>30); Culture Indicated Urine Specimen Cultured; RBC Urine 0-1/HPF (0-5/HPF); WBC Urine 10-30/HPF (0-5/HPF)
== END 2020-12-13 18:48 | disposition home or self-care (01) ==
PROVIDERS: Emergency Provider Emergency Medicine; PCP Physician Assistant
DX: L03.116 Cellulitis of left lower limb (principal); R06.02 Shortness of breath; R41.0 Disorientation, unspecified
CPT/HCPCS: 36415; 51701; 80053; 81003; 81015; 85025; 85610; 85651; 85730; 86140; 87077; 87086; 87186; 93971; 99284

== ENCOUNTER 2020-12-18 13:16 | Inpatient (IN) | payer MEDICARE, OTHER, MEDICAID, SELFPAY ==
[2019-09-29 22:26] VITALS: BMI 33.4
[2020-12-18] VITALS (10 sets, daily range): BP systolic 103–138; BP diastolic 52–64; PULSE 55–82; RESP 16–20; TEMP 35.6–35.9; O2SAT 84–100; BMI 32.1
--- NOTE | 2020-12-18 13:35 | DI.RAD.S_ITS ---
PROCEDURE: XR CHEST 1V INDICATIONS: suspected sepsis TECHNIQUE: One view of the chest was acquired. COMPARISON: [facility], CT, CHEST/ABD/PEL WITH CONTRAST, 10/19/2011, 15:41. [facility], CR, XR CHEST 1V, 12/02/2020, 19:22. [facility], CR, XR CHEST 1V, 11/27/2018, 11:11. FINDINGS: Surgical changes and devices: Right axillary clips are seen. Right mastectomy changes are partially seen. Lungs and pleura: On this semiupright portable chest examination, no large pneumothorax or large pleural effusions are seen. No focal infiltrates are seen. Low lung volumes are noted. This causes a crowded appearance to the lung markings and limits evaluation. Mediastinum: The cardiac contours are within normal limits. The aorta demonstrates calcification and tortuosity. Bones and chest wall: No suspicious bony lesions. Overlying soft tissues appear unremarkable. Age-appropriate bony degenerative changes are seen. IMPRESSION: Low lung volumes, without focal infiltrates. Postoperative and degenerative changes are seen. Dictated by: Chidi Irizarry M.D. on 12/18/2020 at 13:03 Approved by: Chidi Irizarry M.D. on 12/18/2020 at 13:05
[2020-12-18 13:45] LABS: Add Manual Diff / Slide Review NO; Basophils Absolute Auto 0 /uL (0-100); Basophils Percent Auto 0.1 % (0-2); Eosinophils Absolute Auto 0 /uL (0-450); Eosinophils Percent Auto 0.1 % (2-4); Hematocrit 27.6 % (36-46); Hemoglobin 8.3 g/dL (12.0-16.0); Lymphocytes Absolute Auto 1100 /uL (1100-4500); Lymphocytes Percent Auto 5.3 % (25-40); Mean Corpuscular Hemoglobin 27.9 PG (26-34); Mean Corpuscular Volume 92.8 fL (80-100); Monocytes Absolute Auto 1600 /uL (0-900); Monocytes Percent Auto 7.3 % (3-14); Neutrophils Absolute Auto 18900 /uL (1500-7000); Neutrophils Percent Auto 87.2 % (50-75); Platelet Count 134 X10^3/uL (150-400); Red Blood Cell Count 2.97 X10^6/uL (4.0-5.2); Red Cell Distribution Width 17.3 % (11.6-14.8); White Blood Cell Count 21.7 X10^3/uL (4.5-11.0)
[2020-12-18 13:51] LABS: Lactate (Lactic Acid) 3.6 mmol/L (0.7-2.1)
[2020-12-18 13:52] LABS: Alanine Aminotransferase 14 IU/L (<35); Albumin 2.6 g/dL (3.5-5.0); Albumin Globulin Ratio 0.9 (1.0-2.8); Alkaline Phosphatase 81 U/L (38-126); Aspartate Aminotransferase 25 IU/L (14-36); BUN Creatinine Ratio 27.8 (6-22); Bilirubin Total 1.2 mg/dL (0.2-1.3); Blood Urea Nitrogen 74 mg/dL (7-17); Calcium 8.3 mg/dL (8.4-10.2); Carbon Dioxide 22 mmol/L (22-32); Chloride 98 mmol/L (98-107); Estimated Glomerular Filt Rate 17.5 mL/min (>60); Globulin 2.8 g/dL (1.7-4.1); Lipase 63 U/L (23-300); Potassium 4.8 mmol/L (3.4-5.1); Sodium 131 mmol/L (137-145); Total Protein 5.4 g/dL (6.3-8.2)
[2020-12-18 14:01] LABS: HEMOLYSIS 19 (0-50)
[2020-12-18 14:08] LABS: Procalcitonin 0.87 ng/mL (<0.5)
[2020-12-18 14:09] LABS: Glucose 491 mg/dL (80-110)
[2020-12-18] MEDS: SODIUM CHLORIDE 0.9% 1,641 ML 547 ML IV (14:20)
[2020-12-18 14:23] LABS: Appearance Urine UA CLEAR; Bilirubin Urine UA NEGATIVE (NEGATIVE); Color Urine UA YELLOW; Glucose Urine UA TRACE g/dL (Negative); Ketones Urine UA NEGATIVE (NEGATIVE); Leukocyte Esterase Urine UA NEGATIVE (NEGATIVE); Nitrite Urine UA NEGATIVE (Negative); Occult Blood Urine UA NEGATIVE (Negative); Protein Urine UA 1+ (Negative); Urobilinogen Urine UA 0.2 E.U./dL (0.2)
[2020-12-18] MEDS: SODIUM CHLORIDE 0.9% 1,000 ML 1000 ML IV ×2 (14:24→20:45)
[2020-12-18 14:35] LABS: RBC Urine None Seen (0-5/HPF); WBC Urine 1-5/HPF (0-5/HPF)
[2020-12-18 14:36] LABS: Culture Indicated Urine Specimen Cultured; Squamous Epithelial Cell Urine None Seen (0-5/HPF)
--- NOTE | 2020-12-18 14:58 | ED.GENADULT ---
HPI - General Adult General Chief complaint: Weakness Stated complaint: Weakness, N,V,D Time Seen by Provider: 12/18/20 14:58 Source: patient and EMS Mode of arrival: EMS History of Present Illness HPI narrative: 75-year-old woman with history of renal transplant, type 1 diabetes hypertension, hyperlipidemia, depression developing dementia who apparently was at becoming increasingly weak her is having difficulty taking care of her daughter found her lying on the floor for an unknown period of time and asked medics to bring her in for further evaluation. She does not have any recollection of events and cannot add to overall history. Her daughter reports that she is minimally compliant with medications. She was seen in the emergency department 5 days ago and diagnosed with a cellulitis of the left foot, started on Keflex. That foot was recently operated on and sutures are still in place from partial great toe amputation. Patient's sterile process coordinator is at [facility]. With previous admissions and bumps in creatinine recommendations had been to hydrate her and transfer only if the renal function was worsening. From [facility] in September of 2019 she was transferred to [facility] for right toe partial amputation. It appears that she was transferred from [facility] to [facility] in November of this year for the left foot surgery. Related Data Home Medications Medication Instructions Recorded Confirmed acetaminophen 325 mg tablet 325 mg PO PRN PRN #0 10/19/12 09/29/19 aspirin 81 mg tablet,delayed 81 mg PO DAILY #0 10/19/12 09/29/19 release calcium carbonate 500 mg calcium 500 mg PO DAILY #0 10/19/12 09/29/19 (1,250 mg) tablet esomeprazole magnesium 20 mg 20 mg PO BEDTIME #0 10/19/12 09/29/19 capsule,delayed release (Nexium) insulin glargine 100 unit/mL 60 unit SQ DAILY #0 10/19/12 09/29/19 subcutaneous solution (Lantus U-100 Insulin) nitrofurantoin macrocrystal 50 mg 50 mg PO DAILY #0 10/19/12 09/29/19 capsule prednisone 5 mg tablet 5 mg PO DAILY #0 10/19/12 09/29/19 tacrolimus 1 mg capsule, 2 mg PO BID #0 10/19/12 09/29/19 immediate-release (Prograf) empagliflozin 10 mg tablet 10 mg PO DAILY 11/27/18 09/29/19 (Jardiance) furosemide 20 mg tablet 20 mg PO BID 11/27/18 09/29/19 icosapent ethyl 1 gram capsule 1 g PO BID 11/27/18 09/29/19 (Vascepa) levothyroxine 25 mcg tablet 25 mcg PO DAILY 11/27/18 09/29/19 pravastatin 20 mg tablet 20 mg PO DAILY 11/27/18 09/29/19 insulin lispro 100 unit/mL 20 unit SUBCUT DAILY 09/29/19 09/29/19 subcutaneous solution (Humalog U-100 Insulin) metoprolol succinate 25 mg 25 mg PO BID 09/29/19 09/29/19 tablet,extended release 24 hr oxycodone 10 mg tablet,crush 10 mg PO BEDTIME 09/29/19 09/29/19 resistant,extended release 12 hr (OxyContin) oxycodone 5 mg tablet 5 mg PO TID PRN 09/29/19 09/29/19 sertraline 25 mg tablet 25 mg PO DAILY 09/29/19 09/29/19 Allergies Allergy/AdvReac Type Severity Reaction Status Date / Time verapamil [VERAPAMIL] Allergy Intermediate RHADOMYOLYS Verified 09/29/19 17:17 IS methadone [METHADONE] Allergy Mild N/V Verified 09/29/19 17:17 propoxyphene [PROPOXYPHENE] Allergy Mild N/V Verified 09/29/19 17:17 morphine Allergy Verified 09/29/19 17:17 Review of Systems Review of Systems ROS Unobtainable: Unobtainable due to medical condition Patient History Medical History ISMAEL (acute kidney injury) Cellulitis Dementia Diabetes type 2, uncontrolled Diarrhea Essential hypertension Hypertriglyceridemia Hypothyroid Surgical History H/O right mastectomy Kidney transplant recipient Family History Father Old age Other Renal failure Social History household members: none Smoking Status: Never smoker Smoking Status: Never smoker alcohol intake frequency: 0-2 drinks per day Substance Use Type: does not use Exam Narrative Exam Narrative: General: Frail-appearing woman chronically ill, in no acute distress confused not oriented to place or events. HEENT: Moist mucous membranes, normal sclera with reactive pupils, Neck: No JVD, supple Respiratory: Lungs are clear to auscultation, no wheezing no rales no rhonchi. Full and symmetrical air movement Cardiac: Tachycardic with 3/6 systolic ejection murmur. Abdomen: Soft, nontender, minor bruising on the lower abdomen from insulin shots, good bowel tones, no flank pain. No pain behaviors with deep palpation of all abdominal quadrants. Skin: Pale. Chronic venous stasis changes more on the right than the left. Increased erythema with weeping on the right side. Neurologic: Globally weak, confused, moving all extremities Extremities: Right foot with a dressing in place there is a very small superficial ulcer on the lateral aspect of the remaining great toe that does not appear to be infected. Left foot with sutures over the great toe and the middle toe again no obvious signs of infection or drainage. Right العلي and calf with chronic venous stasis changes increasing redness consistent with cellulitis and weeping. Psych: Confused but cooperative Initial Vital Signs Initial Vital Signs: Vital Signs Temperature 96.6 F L 12/18/20 13:00 Pulse Rate 64 12/18/20 13:00 Respiratory Rate 18 12/18/20 13:00 Blood Pressure 105/58 L 12/18/20 13:00 Pulse Oximetry 94 12/18/20 13:00 Course Orders Ordered: ED Orders 12/18/20 13:30 Complete Blood Count AUTO DIFF Stat Comprehensive Metabolic Panel Stat Lactate (Lactic Acid) Stat Lipase Stat Procalcitonin Stat 12/18/20 13:35 XR chest 1V Stat EKG-12 Lead Stat RT Consult Eval and Treat Now 12/18/20 13:40 COVID19 - ADMIT ([employer] swab/PCR) Stat 12/18/20 14:04 Urinalysis and Microscopic Stat Urine Culture Stat 12/18/20 14:12 Blood Culture Stat Sodium Chloride (Normal Saline 0.9%) 1,641 mls @ 547 mls/hr 30 ml/kg infuse over 3 hr (1641 ml) IV NOW ONE Stop: 12/18/20 18:30 Last Admin: 12/18/20 14:20 Dose: 547 mls/hr Documented by: TEENA Vancomycin HCl (Vancomycin) 1,000 mg in 200 mls @ 200 mls/hr IV Q48H HUEY Discontinued Medications Sodium Chloride (Normal Saline 0.9%) 1,000 mls @ 1,000 mls/hr IV BOLUS ONE Stop: 12/18/20 14:34 Last Admin: 12/18/20 14:24 Dose: 1,000 mls/hr Documented by: TEENA Piperacillin Sod/Tazobactam (Sod 4.5 gm/ Sodium Chloride) 100 mls @ 200 mls/hr IV NOW ONE Stop: 12/18/20 15:32 Last Admin: 12/18/20 15:35 Dose: 200 mls/hr Documented by: TEENA Vancomycin HCl (Vancomycin Per Pharmacy) 1 request MISC NOW ONE Stop: 12/18/20 15:32 Last Admin: 12/18/20 15:57 Dose: Not Given Documented by: TEENA Vital Signs Vital signs: Vital Signs - 8 hr 12/18/20 13:00 12/18/20 14:30 12/18/20 14:36 Temperature 96.6 F L Pulse Rate 64 55 L 57 L Respiratory Rate 18 18 18 Blood Pressure 105/58 L 103/59 L 103/59 L Pulse Oximetry 94 96 97 12/18/20 15:05 Temperature Pulse Rate 64 Respiratory Rate 18 Blood Pressure 109/57 L Pulse Oximetry 98 Medical Decision Making Lab Data Result diagrams: 12/18/20 13:30 12/18/20 13:30 Labs: Lab Results 12/18/20 12/18/20 12/18/20 Range/Units 13:30 13:30 13:30 WBC 21.7 H (4.5-11.0) X10^3/uL RBC 2.97 L (4.0-5.2) X10^6/uL Hgb 8.3 L (12.0-16.0) g/dL Hct 27.6 L (36-46) % MCV 92.8 (80-100) fL MCH 27.9 (26-34) PG MCHC 30.0 (30-36) % RDW 17.3 H (11.6-14.8) % Plt Count 134 L (150-400) X10^3/uL Neut % (Auto) 87.2 H (50-75) % Lymph % (Auto) 5.3 L (25-40) % [place] % (Auto) 7.3 (3-14) % Eos % (Auto) 0.1 L (2-4) % Baso % (Auto) 0.1 (0-2) % Neut # (Auto) 42242 H (6560-7601) /uL Lymph # (Auto) 1100 (4067-8885) /uL [place] # (Auto) 1600 H (0-900) /uL Eos # (Auto) 0 (0-450) /uL Baso # (Auto) 0 (0-100) /uL Sodium 131 L (137-145) mmol/L Potassium 4.8 (3.4-5.1) mmol/L Chloride 98 (98-107) mmol/L Carbon Dioxide 22 (22-32) mmol/L BUN 74 H (7-17) mg/dL Creatinine 2.66 H (0.52-1.04) mg/dL Estimated GFR 17.5 L (>60) mL/min BUN/Creatinine Ratio 27.8 H (6-22) Glucose 491 H* (80-110) mg/dL Lactate 3.6 H (0.7-2.1) mmol/L Calcium 8.3 L (8.4-10.2) mg/dL Total Bilirubin 1.2 (0.2-1.3) mg/dL AST 25 (14-36) IU/L ALT 14 (<35) IU/L Alkaline Phosphatase 81 (38-126) U/L Total Protein 5.4 L (6.3-8.2) g/dL Albumin 2.6 L (3.5-5.0) g/dL Globulin 2.8 (1.7-4.1) g/dL Albumin/Globulin Ratio 0.9 L (1.0-2.8) Lipase 63 (23-300) U/L Procalcitonin 0.87 H (<0.5) ng/mL Urine Color Urine Appearance Urine pH (4.5-8.0) Ur Specific [place] (1.000-1.035) Urine Protein (Negative) Urine Glucose (UA) (Negative) g/dL Urine Ketones (NEGATIVE) Urine Occult Blood (Negative) Urine Nitrate (Negative) Urine Bilirubin (NEGATIVE) Urine Urobilinogen (0.2) E.U./dL Ur Leukocyte Esterase (NEGATIVE) Urine RBC (0-5/HPF) Urine WBC (0-5/HPF) Ur Squamous Epith Cells (0-5/HPF) Urine Bacteria (None) Urine Yeast (None) Ur Culture Indicated? SARS-CoV-2 (PCR) (Negative) 12/18/20 12/18/20 12/18/20 Range/Units 13:40 14:04 15:31 WBC (4.5-11.0) X10^3/uL RBC (4.0-5.2) X10^6/uL Hgb (12.0-16.0) g/dL Hct (36-46) % MCV (80-100) fL MCH (26-34) PG MCHC (30-36) % RDW (11.6-14.8) % Plt Count (150-400) X10^3/uL Neut % (Auto) (50-75) % Lymph % (Auto) (25-40) % [place] % (Auto) (3-14) % Eos % (Auto) (2-4) % Baso % (Auto) (0-2) % Neut # (Auto) (2959-8936) /uL Lymph # (Auto) (4034-9365) /uL [place] # (Auto) (0-900) /uL Eos # (Auto) (0-450) /uL Baso # (Auto) (0-100) /uL Sodium (137-145) mmol/L Potassium (3.4-5.1) mmol/L Chloride (98-107) mmol/L Carbon Dioxide (22-32) mmol/L BUN (7-17) mg/dL Creatinine (0.52-1.04) mg/dL Estimated GFR (>60) mL/min BUN/Creatinine Ratio (6-22) Glucose (80-110) mg/dL Lactate 2.2 H (0.7-2.1) mmol/L Calcium (8.4-10.2) mg/dL Total Bilirubin (0.2-1.3) mg/dL AST (14-36) IU/L ALT (<35) IU/L Alkaline Phosphatase (38-126) U/L Total Protein (6.3-8.2) g/dL Albumin (3.5-5.0) g/dL Globulin (1.7-4.1) g/dL Albumin/Globulin Ratio (1.0-2.8) Lipase (23-300) U/L Procalcitonin (<0.5) ng/mL Urine Color Yellow Urine Appearance Clear Urine pH 5.0 (4.5-8.0) Ur Specific [place] 1.010 (1.000-1.035) Urine Protein 1+ H (Negative) Urine Glucose (UA) Trace H (Negative) g/dL Urine Ketones Negative (NEGATIVE) Urine Occult Blood Negative (Negative) Urine Nitrate Negative (Negative) Urine Bilirubin Negative (NEGATIVE) Urine Urobilinogen 0.2 (0.2) E.U./dL Ur Leukocyte Esterase Negative (NEGATIVE) Urine RBC None seen (0-5/HPF) Urine WBC 1-5/hpf (0-5/HPF) Ur Squamous Epith Cells None seen (0-5/HPF) Urine Bacteria Few (2-10) H (None) Urine Yeast 1-5/hpf H (None) Ur Culture Indicated? Specimen cultured SARS-CoV-2 (PCR) Negative (Negative) Imaging Data Chest x-ray: Radiologist's Impression: FINDINGS:? ? Surgical changes and devices:? Right axillary clips are seen.? Right mastectomy changes are partially seen. ? Lungs and pleura:? On this semiupright portable chest examination, no large pneumothorax or large pleural effusions are seen.? No focal infiltrates are seen.? Low lung volumes are noted. This causes a crowded appearance to the lung markings and limits evaluation.? ? Mediastinum:? The cardiac contours are within normal limits. The aorta demonstrates calcification and tortuosity. ? Bones and chest wall:? No suspicious bony lesions.? Overlying soft tissues appear unremarkable.? Age-appropriate bony degenerative changes are seen. ? ? ? IMPRESSION:? Low lung volumes, without focal infiltrates. ? Postoperative and degenerative changes are seen.? ? ? Dictated by: Chidi Irizarry M.D. on 12/18/2020 at 13:03? ?? [facility] Narrative Medical decision making narrative: 75-year-old woman with multiple chronic medical problems now appears to have recurrent sepsis presumably secondary to a right lower extremity cellulitis. Both feet appear to be healing nicely with their previous surgeries(left foot partial amputation in November of this year right foot partial amputation in September of last year). She has no complaints of abdominal pain to suggest White count is significantly elevated, lactic acid is up, as his procalcitonin. Renal function is slightly worse with creatinine currently at 2.66. In November it had been 2.64 had improved to 2.24 5 days ago. She is hyperglycemic without DKA. Blood pressure is slightly low at 105/58. Thirty per kilos fluid boluses initiated. Antibiotics in the form of Zosyn and vancomycin are initiated. She had been prescribed Keflex it is unclear if she actually took any of this. Chest x-ray does not suggest source of infection. Urine has been sent for culture but again does not appear to be source of infection. At this time I am not seeing a source for her infection that fully explains the severity of her white blood cell count. It may be that dehydration is significant as she has not been well cared for since returning home and reportedly was on the floor at least overnight. Will need hospital admission, fluids, antibiotics. Will see if beds are available at [facility]. 4:15pm Beds are not currently available as [facility] however she is added to their waiting list with possibility of bed availability by tomorrow afternoon. If renal function has worsened or additional reasons for transfer arise then we can continue to use that holding place. If she is improving with can certainly cancel the requests. Care is reviewed with Dr. Javier and he will more thoroughly evaluate the patient once upstairs. Majority of her care was in a hallway bed in the emergency department due to large volumes during COVID pandemic. More thorough skin exam will need to be done once a more private space is available. Discharge Plan Departure Patient Disposition: Admitted As Inpatient Clinical Impression: Cellulitis, Sepsis Prescriptions: No Action acetaminophen 325 mg Tablet 325 mg PO PRN PRN (Reason: pain) Qty: 0 RF: 0 Lantus U-100 Insulin 100 UNIT/1 ML solution 60 unit SQ DAILY Qty: 0 RF: 0 aspirin 81 MG tablet,delayed release (DR/EC) 81 mg PO DAILY Qty: 0 RF: 0 calcium carbonate 500 mg calcium (1,250 mg) Tablet 500 mg PO DAILY Qty: 0 RF: 0 tacrolimus [Prograf] 1 MG capsule 2 mg PO BID Qty: 0 RF: 0 esomeprazole magnesium [Nexium] 20 mg Capsule,Delayed Release(Dr/Ec) 20 mg PO BEDTIME Qty: 0 RF: 0 nitrofurantoin macrocrystal 50 MG capsule 50 mg PO DAILY Qty: 0 RF: 0 prednisone 5 MG tablet 5 mg PO DAILY Qty: 0 RF: 0 levothyroxine 25 mcg tablet 25 mcg PO DAILY RF: 0 pravastatin 20 mg tablet 20 mg PO DAILY RF: 0 furosemide 20 mg tablet 20 mg PO BID RF: 0 Vascepa 1 gram capsule 1 g PO BID RF: 0 Jardiance 10 mg tablet 10 mg PO DAILY RF: 0 oxycodone 5 mg tablet 5 mg PO TID PRN (Reason: Pain (Scale Score 7-10)) RF: 0 sertraline 25 mg tablet 25 mg PO DAILY RF: 0 metoprolol succinate 25 mg tablet extended release 24 hr 25 mg PO BID RF: 0 insulin lispro [Humalog U-100 Insulin] 100 unit/mL solution 20 unit SUBCUT DAILY RF: 0 oxycodone [OxyContin] 10 mg Tablet,Oral Only,Ext.Rel.12 Hr 10 mg PO BEDTIME RF: 0 Referrals: Ary Denton PA-C [Primary Care Provider] -
[2020-12-18 15:05] LABS: COVID19 - ADMIT (NP swab/PCR) Negative (Negative)
[2020-12-18 15:13] LABS: Bacteria Urine Few (2-10)
[2020-12-18] MEDS: PIPERACILLIN/TAZO 4.5 GM in SODIUM CHLORIDE 0.9% 100 ML 200 ML IV (15:35)
[2020-12-18 15:39] LABS: Reflexed Lactate in 2 Hours Y
[2020-12-18 16:09] LABS: Lactate 2HR (Lactic Acid Rflx) 2.2 mmol/L (0.7-2.1)
--- NOTE | 2020-12-18 16:11 | PC.NURSE ---
Provider asked me to contact [facility] for potential placement. I contacted the halfway house counselor Janel at 16:[address] patient on a waitlist for a bed. Facesheet and covid status faxed to place patient on waiting list.
--- NOTE | 2020-12-18 16:40 | DI.US.S_ITS ---
PROCEDURE: US RENAL COMPLETE INDICATIONS: ACUTE KIDNEY INJURY TECHNIQUE: Real-time scanning was performed of the kidneys and bladder, with image documentation. COMPARISON: [facility], CT, CT ABDOMEN PELVIS WITHOUT CONTRAST, 03/05/2019, 9:06. [facility], US, RENAL COMPLETE, 03/01/2011, 7:36. FINDINGS: Right kidney is echogenic and atrophic with cortical thinning measuring 8 mm. Renal length is 7.6 cm. No hydronephrosis. Left kidney also shows cortical echogenicity new. Less cortical thinning measures at 9.7 mm. Renal length is 11.3 cm. No hydronephrosis or shadowing calculi. There is a right lower quadrant renal transplant. Renal length is 10.3 cm with renal cortex measuring 1.6 cm. There is a 1.3 x 1.4 cm cyst. No hydronephrosis. Levin catheter in the urinary bladder. Incidental multiple splenic cysts, largest measures 3.7 cm. The mid infrarenal abdominal aortic aneurysm measuring 4.3 cm. IMPRESSION: 1. Right lower quadrant renal transplant shows no hydronephrosis or shadowing calculi. Probable 1.4 cm cyst. 2. Bilateral round valley renal atrophy. 3. Incidental splenic cysts and infrarenal abdominal aortic aneurysm 4.3 cm, increased in size from prior CT. Consider follow-up CT abdomen pelvis for direct comparison. Approved by: Eric Rodriguez M.D. on 12/18/2020 at 18:13
--- NOTE | 2020-12-18 18:05 | P.HP_ITS ---
History of Present Illness History of Present Illness Date Patient Seen: 12/18/20 Time Patient Seen: 18:21 Chief complaint: Weakness, N,V,D Narrative: April Felix is a 73 y.o.? female with a history of a right renal transplant, DM type 1, PAD with prior bilateral partial toe amputations, hypertension, hyperlipidemia, dementia, and depression presents with worsening weakness, lethargy. She was reportedly down for an unknown period of time and found by her daughter. And patient does not recall any inciting events but has been unable to move for the past couple of weeks. She was seen in the emergency room proximally 5 days ago and diagnosed with a cellulitis of her left foot and was started on Keflex, she recently had a partial toe amputation of the left approximately 1-2 months ago. She was admitted here in 2019 and was transferred for a right partial toe amputation and vascular evaluation. Unable to obtain further family history other than what is currently documented due the patient's mental status and confusion. No family is available at bed side currently. In the emergency room the patient was afebrile and her vital signs were fairly unremarkable. Initial laboratory evaluation revealed a marked leukocytosis with WBC of 21.7, worsened anemia with a hemoglobin of 8.3 compared to prior studies, and a platelet count of 134, although this is up from previous studies. Initial chemistries revealed a mild hyponatremia with a sodium of 131, elevated BUN at 74, creatinine of 2.66 (unknown baseline at this time, but possibly 1.8 - 2 based on our labs), glucose was 491. She did not have an anion gap and her bicarb was 22. Procalcitonin was mildly elevated at 0.87. ESR, CRP, and CK levels are currently pending and were added on by me. Urinalysis showed trace glucose, but no leuk esterase or nitrite. There was 1-5 wbc's, a few urine bacteria and the specimen was sent for culture. COVID-19 testing was negative. Patient History Medical History ISMAEL (acute kidney injury) Cellulitis Dementia Diabetes type 2, uncontrolled Diarrhea Essential hypertension Hypertriglyceridemia Hypothyroid Surgical History H/O right mastectomy Kidney transplant recipient Comment: R partial toe amputation 2019, L partial toe amputation x2 (03/08) in 2020. Family & Social History Family History Father Old age Other Renal failure Social History: household members children,none Safety & Behavioral: Feels Safe in Current Yes Environment Been Physically Hurt or No Threatened By a Person Suicidal Ideation Description None Tobacco & Substance use: Smoking Status Never smoker alcohol intake frequency 0-2 drinks per day Substance Use Type does not use Meds Home Medications and Allergies Home Medications Medication Instructions Recorded Confirmed Type acetaminophen 325 mg tablet 325 mg PO PRN PRN #0 10/19/12 12/18/20 History aspirin 81 mg tablet,delayed 81 mg PO DAILY #0 10/19/12 12/18/20 History release calcium carbonate 500 mg calcium 500 mg PO DAILY #0 10/19/12 12/18/20 History (1,250 mg) tablet insulin glargine 100 unit/mL 45 unit SQ DAILY #0 10/19/12 12/18/20 History subcutaneous solution (Lantus U-100 Insulin) nitrofurantoin macrocrystal 50 mg 50 mg PO DAILY #0 10/19/12 12/18/20 History capsule prednisone 5 mg tablet 5 mg PO DAILY #0 10/19/12 12/18/20 History tacrolimus 1 mg capsule, 2 mg PO BID #0 10/19/12 12/18/20 History immediate-release (Prograf) furosemide 20 mg tablet 60 mg PO BID 11/27/18 12/18/20 History icosapent ethyl 1 gram capsule 1 g PO BID 11/27/18 12/18/20 History (Vascepa) levothyroxine 25 mcg tablet 50 mcg PO DAILY 11/27/18 12/18/20 History pravastatin 20 mg tablet 20 mg PO DAILY 11/27/18 12/18/20 History insulin lispro 100 unit/mL 15 unit SUBCUT AC 09/29/19 12/18/20 History subcutaneous solution (Humalog U-100 Insulin) metoprolol succinate 25 mg 25 mg PO BID 09/29/19 12/18/20 History tablet,extended release 24 hr oxycodone 10 mg tablet,crush 10 mg PO BEDTIME 09/29/19 12/18/20 History resistant,extended release 12 hr (OxyContin) oxycodone 5 mg tablet 10 mg PO TID PRN 09/29/19 12/18/20 History sertraline 25 mg tablet 25 mg PO DAILY 09/29/19 12/18/20 History amlodipine 5 mg tablet 5 mg PO DAILY 12/18/20 12/18/20 History clopidogrel 75 mg tablet (Plavix) 75 mg PO DAILY 12/18/20 12/18/20 History Allergies Allergy/AdvReac Type Severity Reaction Status Date / Time verapamil [VERAPAMIL] Allergy Intermediate RHADOMYOLYS Verified 09/29/19 17:17 IS methadone [METHADONE] Allergy Mild N/V Verified 09/29/19 17:17 propoxyphene [PROPOXYPHENE] Allergy Mild N/V Verified 09/29/19 17:17 morphine Allergy Verified 09/29/19 17:17 Review of Systems Review of Systems Narrative: All other systems reviewed with the patient and are negative unless otherwise stated, though this is limited by the patient's dementia Exam Vital Signs (past 8 hours): - 12/18/20 13:00 12/18/20 14:30 12/18/20 14:36 Temperature 96.6 F L Pulse Rate 64 55 L 57 L Respiratory Rate 18 18 18 Blood Pressure 105/58 L 103/59 L 103/59 L Pulse Oximetry 94 96 97 12/18/20 15:05 12/18/20 16:27 Temperature Pulse Rate 64 77 Respiratory Rate 18 Blood Pressure 109/57 L 138/61 Pulse Oximetry 98 96 Oxygen Delivery Method Room Air Narrative Exam Narrative: GENERAL APPEARANCE: Chronically ill-appearing, though obese, pleasant but confused elderly female, in mild discomfort SKIN: Inspection of the skin reveals diffuse bruising. RLE circumferential max thema and skin thickening over the calf. coccyx bruising vs deep tissue injury. No erythema or warmth. HEENT: Normocephalic atraumatic, extraocular muscles are intact, oropharynx is clear and mucous membranes are dry, neck is supple without adenopathy NECK: Supple and symmetric. There was no thyroid enlargement, and no tenderness, or masses were felt. CHEST: Normal AP diameter and normal contour without any kyphoscoliosis. LUNGS: Auscultation of the lungs revealed no wheezes, rhonchi, or rales. CARDIOVASCULAR: There was a regular rate and rhythm without any murmurs, gallops, rubs. Peripheral pulses were 2+ and symmetric. ABDOMEN: soft, mild suprapubic and bilateral lower quadrant tenderness, non- distended. MUSCULOSKELETAL: Diffuse tenderness with any palpation, hypersensitivity. No joint effusions. EXTREMITIES: R hallux partial amputation well healed, small lesions over 1st MTP without active infection. Left 1st and 3rd toe partial amputation, stitches in place, well healing. NEUROLOGIC: Alert, oriented to name and hospital. Confused. Moves all extremities. Diffuse weakness. Objective Imaging Chest x-ray: My impression: No focal infiltrates Radiologist's impression: Low lung volumes without focal infiltrates Labs Result Diagrams: 12/18/20 13:30 12/18/20 13:30 Labs: Laboratory Results - last 24 hr 12/18/20 12/18/20 12/18/20 13:30 13:30 13:30 WBC 21.7 H RBC 2.97 L Hgb 8.3 L Hct 27.6 L MCV 92.8 MCH 27.9 MCHC 30.0 RDW 17.3 H Plt Count 134 L Neut % (Auto) 87.2 H Lymph % (Auto) 5.3 L [place] % (Auto) 7.3 Eos % (Auto) 0.1 L Baso % (Auto) 0.1 Neut # (Auto) 47679 H Lymph # (Auto) 1100 [place] # (Auto) 1600 H Eos # (Auto) 0 Baso # (Auto) 0 Sodium 131 L Potassium 4.8 Chloride 98 Carbon Dioxide 22 BUN 74 H Creatinine 2.66 H Estimated GFR 17.5 L BUN/Creatinine Ratio 27.8 H Glucose 491 H* Lactate 3.6 H Calcium 8.3 L Total Bilirubin 1.2 AST 25 ALT 14 Alkaline Phosphatase 81 Total Protein 5.4 L Albumin 2.6 L Globulin 2.8 Albumin/Globulin Ratio 0.9 L Lipase 63 Procalcitonin 0.87 H Urine Color Urine Appearance Urine pH Ur Specific [place] Urine Protein Urine Glucose (UA) Urine Ketones Urine Occult Blood Urine Nitrate Urine Bilirubin Urine Urobilinogen Ur Leukocyte Esterase Urine RBC Urine WBC Ur Squamous Epith Cells Urine Bacteria Urine Yeast Ur Culture Indicated? SARS-CoV-2 (PCR) 12/18/20 12/18/20 12/18/20 13:40 14:04 15:31 WBC RBC Hgb Hct MCV MCH MCHC RDW Plt Count Neut % (Auto) Lymph % (Auto) [place] % (Auto) Eos % (Auto) Baso % (Auto) Neut # (Auto) Lymph # (Auto) [place] # (Auto) Eos # (Auto) Baso # (Auto) Sodium Potassium Chloride Carbon Dioxide BUN Creatinine Estimated GFR BUN/Creatinine Ratio Glucose Lactate 2.2 H Calcium Total Bilirubin AST ALT Alkaline Phosphatase Total Protein Albumin Globulin Albumin/Globulin Ratio Lipase Procalcitonin Urine Color Yellow Urine Appearance Clear Urine pH 5.0 Ur Specific [place] 1.010 Urine Protein 1+ H Urine Glucose (UA) Trace H Urine Ketones Negative Urine Occult Blood Negative Urine Nitrate Negative Urine Bilirubin Negative Urine Urobilinogen 0.2 Ur Leukocyte Esterase Negative Urine RBC None seen Urine WBC 1-5/hpf Ur Squamous Epith Cells None seen Urine Bacteria Few (2-10) H Urine Yeast 1-5/hpf H Ur Culture Indicated? Specimen cultured SARS-CoV-2 (PCR) Negative Assessment & Plan Assessment & Plan narrative: April Felix will be admitted for antibiotic treatment and management of a right great toe infection and ulcer.? She will also be closely monitored and treated for an acute on chronic kidney injury. 1. sepsis ?- source not entirely clear. May be dehydration and secondary to RLE cellulitis, however suspect something more. SOFA score 5. - No obvious other source at this time. There is a sacral bruising which does not appear to be infected. - some abdominal pain, UA reflexed for culture. Consider CT imaging of her abd/pevlis, ideally with contrast though with ISMAEL and renal transplant avoid contrast at this time. - f/u urine and blood cultures. - given zosyn and vancomycin in the ER. Continue cefepime and vanco per pharmacy as zosyn with vanc is associated with ISMAEL. - check ESR and CRP, consider additional imaging of RLE given history of prior osteomyelitis, XR ordered of R tib/fib. - WBC on admit 21.7 - try and obtain records from [facility] regarding recent toe amputation. - unclear baseline mental status, may have acute encephalopathy. 2. Acute on chronic CKD, solitary kidney, present on admission -She takes tacrolimus, anti-rejection for her kidneys which we will continue. Can continue home prednisone at 5 mg daily as well. -if worsening creatinine consider transfer to [facility] for nephrology consultation. - check CK level given found down. Continue IV fluids for now. Repeat BMP this evening. 3. Diabetes type 1, poorly controlled - admission glucose > 400, no DKA. Continue lantus 45 nightly, 15 U lispro TID AC and high dose sliding scale. Continue to adjust. - hold jardiance 4. Acute anemia, chronic thrombocytopenia. - may be in setting of infection, BUN elevated watch for evidence of GI bleeding though none reported. Hg 8.3 from prior values around 10 five days ago. Plts improved from prior values. - check stool guaiac. - iron panel ordered. 5. Hypertension, chronic, present on admission -Continue home medications cautiously given sepsis. 6. Hypertriglycerdemia, chronic -Continue home dose of pravastatin 7. Hypothyroidism, chronic -continue home meds. Check TSH 8. history of dementia, possible metabolic encephalopathy from sepsis. Code: DNR, surrogate is patient's daughter. Dispo: Admit as inpatient. Will need PT/OT. Suspect need for SNF. I have utilized all available immediate resources to obtain, update, or review the patient's current medications. Time Spent With Patient Critical Care time: I spent a total of [] minutes of critical care time on this patient's care today; this time is exclusive of procedural time. Scores SOFA PaO2/FIO2: >=400 mmHg Platelets: < 150 Bilirubin: 1.2-1.9 mg/dL Hypotension: MAP >= 70 mmHg Handy Coma Scale: 13-14 Renal: Creatinine 2.0-3.4 mg/dL SOFA Score: 5
[2020-12-18] MEDS: VANCOMYCIN 1,000 MG/200 ML PIGGYBACK 200 MG IV (18:19)
[2020-12-18 18:31] LABS: Creatine Kinase 53 U/L (30-135)
[2020-12-18 18:34] LABS: C-Reactive Protein Quant 8.4 mg/dL (<1.0)
[2020-12-18 18:50] LABS: Erythrocyte Sedimentation Rate 44 MM/HR (0-20)
--- NOTE | 2020-12-18 18:56 | DI.RAD.S_ITS ---
PROCEDURE: XR TIBIA FUBULA RT 2V INDICATIONS: RLE swelling erythema, history of osteo TECHNIQUE: 2 views of the tibia and fibula were acquired. COMPARISON: None. FINDINGS: Bones: No fractures or dislocations. No suspicious bony lesions. Moderate degenerative joint disease in right knee. Soft tissues: Foci of soft tissue calcifications are most likely vascular in nature. There is moderate to severe atherosclerosis. Mottled appearance of soft tissue in calf. IMPRESSION: 1. No definitive osteomyelitis but plain radiographs are not sensitive for early osteomyelitis. If clinically indicated, a triple phase bone scan would be helpful. Dictated by: Farooq Cook M.D. on 12/18/2020 at 23:07 Approved by: Farooq Cook M.D. on 12/18/2020 at 23:10
[2020-12-18] MEDS: SODIUM CHLORIDE 0.9% 1,000 ML 100 ML IV ×2 (20:14→21:55)
[2020-12-18] MEDS: CEFEPIME 2 GM in SODIUM CHLORIDE 0.9% 100 ML 200 ML IV (20:19)
[2020-12-18] MEDS: OXYCODONE IR 5 MG TABLET 10 MG PO (20:20)
[2020-12-18] MEDS: TACROLIMUS 0.5 MG CAPSULE 2 MG PO (20:20)
[2020-12-18 20:33] LABS: BUN Creatinine Ratio 28.9 (6-22); Blood Urea Nitrogen 74 mg/dL (7-17); Calcium 7.7 mg/dL (8.4-10.2); Carbon Dioxide 22 mmol/L (22-32); Chloride 102 mmol/L (98-107); Estimated Glomerular Filt Rate 18.3 mL/min (>60); HEMOLYSIS < 15 (0-50); Potassium 4.8 mmol/L (3.4-5.1); Sodium 133 mmol/L (137-145)
[2020-12-18 20:49] LABS: Glucose 529 mg/dL (80-110)
[2020-12-18] MEDS: INSULIN GLARGINE 100 UNIT/ML 3ML PEN 45 UNIT SUBCUT (21:40)
[2020-12-18] MEDS: INSULIN LISPRO 100 UNIT/ML 3ML VIAL SUBCUT (21:41)
--- NOTE | 2020-12-18 22:06 | PC.NURSE ---
Addendum entered by Rhys Lopez R.N. 12/18/20 22:35: call to Dr. Yeung, additional 10U short acting insulin to be given and orders to give Metoprolol with New orders to hold if systolic is <100. Original Note: Patient arrived to floor, slider board used to trans. to bed. Patient alert to self and place, reports pain in back and legs 6/10 increases with movement. Patient is notably weeping from RLE, margins were prev. drawn around redness on RLE by ED staff. Photos were taken of patients skin (Bilat. feet, coccyx, RLE, and bottom of Rt foot. Bed bath provided to patient as she reports it has been over a week since I have had any shower or bedbath. CBG: read higher then 500 Dr. yeung was made aware of value and that lab was present to draw for a glucose amoung others ordered. No new orders given regarding elevated glucose, just cont. with current orders. Relayed b/p of 98/62 and heart rate of 81, clarified whether to give PO Metoprolol. Dr. Lutz ordered 1 L NS bolus and then repeat b/p post bolus.
[2020-12-18] MEDS: INSULIN LISPRO 100 UNIT/ML 3ML VIAL 10 UNIT SUBCUT (22:29)
[2020-12-18] MEDS: METOPROLOL ER 25 MG TABLET PO (22:29)
[2020-12-19] VITALS (17 sets, daily range): BP systolic 84–123; BP diastolic 32–74; PULSE 57–79; RESP 14–22; TEMP 35.7–36.6; O2SAT 95–100
--- NOTE | 2020-12-19 03:13 | PC.NURSE ---
Addendum entered by Chiqui Holm R.N. 12/19/20 06:58: Sat continues to be low in 80's so increased oxygen to 6L/min. New orders received from Dr Lutz. RT contacted and informed of verbal order to have them assess patient now and to do urgent ABG. X-ray here for chest x-ray. Patient placed on NRB at 6L/min and is now at 90% sat. Addendum entered by Chiqui Holm R.N. 12/19/20 06:46: UOP only 75cc this shift. Now able to get pulse ox reading of 81% so increased oxygen to 4L/min. Dr Lutz informed of low UOP, declining CR/Gfr, complaints of SOB and most recent vital signs. No new orders at this time. Addendum entered by Chiqui Holm R.N. 12/19/20 06:38: Was given pain medication 1 hour ago and still complains of pain. Only received 5mg of oxycodone as FLACC was 5. Has order for 10mg TID prn so attempted to give an additional 5mg now but patient refuses. Complains of SOB so oxygen restarted at 2L/min ad unable to get an oximetry reading. BP 96/53. Original Note: Patient is oriented only to self and birthdate. Breath sounds CTA with sat of 99% on oxygen at 2L/min so have now weaned her off the oxygen and sat is 93%. Does drop into 70's with repositioning. HRR w/telemetry reading of SR w/1st degree AVB. Denied nausea. BT present and abdomen is soft. Indwelling catheter is patent; urine is clear, yellow. States she is able to turn herself but unable to move much so will have staff assist to reposition q2h. Skin is quite bruised and fragile with large bruise on sacrum/coccyx. Left LE is reddened but within previously drawn margins; has open area on posterior calf which is weeping. Bilateral LE edema. Stitches to amputated toes on left foot with no redness or drainage noted. Denied pain. Earlier check on CBG was [address] Lutz was informed and ordered to recheck at 0300 and call with results; CBG at 0300 was 358 and MD was contacted and no further orders at this time. Fall risk score is high and bed alarm is activated.
[2020-12-19] MEDS: LEVOTHYROXINE 25 MCG TABLET 50 MCG PO (05:41)
[2020-12-19] MEDS: OXYCODONE IR 5 MG TABLET PO (05:41)
[2020-12-19 06:14] LABS: Alanine Aminotransferase 12 IU/L (<35); Albumin 2.3 g/dL (3.5-5.0); Albumin Globulin Ratio 0.8 (1.0-2.8); Alkaline Phosphatase 67 U/L (38-126); Aspartate Aminotransferase 15 IU/L (14-36); Bilirubin Total 0.5 mg/dL (0.2-1.3); Blood Urea Nitrogen 73 mg/dL (7-17); Carbon Dioxide 22 mmol/L (22-32); Chloride 107 mmol/L (98-107); Estimated Glomerular Filt Rate 15.7 mL/min (>60); Globulin 2.8 g/dL (1.7-4.1); Glucose 257 mg/dL (80-110); HEMOLYSIS < 15 (0-50); Magnesium 1.7 mg/dL (1.6-2.3); Potassium 3.9 mmol/L (3.4-5.1); Sodium 137 mmol/L (137-145); Total Protein 5.1 g/dL (6.3-8.2)
[2020-12-19 06:16] LABS: Add Manual Diff / Slide Review NO; Basophils Absolute Auto 0 /uL (0-100); Basophils Percent Auto 0.1 % (0-2); Eosinophils Absolute Auto 0 /uL (0-450); Eosinophils Percent Auto 0.1 % (2-4); Hemoglobin 7.1 g/dL (12.0-16.0); Lymphocytes Absolute Auto 1500 /uL (1100-4500); Lymphocytes Percent Auto 7.5 % (25-40); Mean Corpuscular HGB Conc 30.8 % (30-36); Mean Corpuscular Hemoglobin 27.9 PG (26-34); Mean Corpuscular Volume 90.3 fL (80-100); Monocytes Absolute Auto 1500 /uL (0-900); Monocytes Percent Auto 7.6 % (3-14); Neutrophils Absolute Auto 16300 /uL (1500-7000); Neutrophils Percent Auto 84.7 % (50-75); Platelet Count 98 X10^3/uL (150-400); Red Blood Cell Count 2.54 X10^6/uL (4.0-5.2); Red Cell Distribution Width 17.2 % (11.6-14.8); White Blood Cell Count 19.3 X10^3/uL (4.5-11.0)
[2020-12-19 06:35] LABS: HEMOLYSIS < 15 (0-50); Iron 19 ug/dL (37-170)
[2020-12-19 06:46] LABS: Percent Iron Saturation 11 % (15-50); Total Iron Binding Capacity 177 ug/dL (265-497); Transferrin 117 mg/dL (206-381)
--- NOTE | 2020-12-19 06:47 | DI.RAD.S_ITS ---
PROCEDURE: XR CHEST 1V INDICATIONS: sob TECHNIQUE: One view of the chest was acquired. COMPARISON: [facility], CR, XR CHEST 1V, 11/27/2018, 11:11. [facility], CR, XR CHEST 1V, 12/18/2020, 13:46. FINDINGS: Overlying EKG wires and slight obliquity somewhat limit evaluation. Surgical changes and devices: Metallic device overlying the right lung apex which may be external to the patient. Lungs and pleura: Lungs are clear. No pleural effusions or pneumothorax. Mediastinum: Mediastinal contours appear normal. Vascular calcifications within the aortic arch. Heart size is normal. Bones and chest wall: No suspicious bony lesions. Age appropriate degenerative changes. Postsurgical changes of the right axilla are unchanged. IMPRESSION: Stable exam without evidence of an acute cardiopulmonary abnormality. Dictated by: Adama Ramirez D.O. on 12/19/2020 at 6:31 Approved by: Adama Ramirez D.O. on 12/19/2020 at 6:34
[2020-12-19 07:02] LABS: Hemoglobin A1C% w Est Avg Glu 8.8 % (4.0-6.0)
[2020-12-19] MEDS: FUROSEMIDE 100 MG/10 ML VIAL 80 MG IV (07:03)
[2020-12-19 08:02] LABS: HCO3 ABG 21 mmol/L (22-26); Oxygen Saturation ABG 99 % (95-100); PCO2 ABG 39.5 mmHg (35-45); PO2 ABG 169 mmHg (80-100); TCO2 ABG 22 mmol/L (21-31); pH ABG 7.33 (7.35-7.45)
[2020-12-19 08:03] LABS: Fractionated Inspired Oxygen 60
[2020-12-19] MEDS: PANTOPRAZOLE 40 MG VIAL IV ×3 (09:09→21:26)
[2020-12-19] MEDS: ENOXAPARIN 30 MG/0.3 ML SYRINGE SUBCUT (09:10)
[2020-12-19] MEDS: OXYCODONE IR 5 MG TABLET 10 MG PO (11:07)
[2020-12-19] MEDS: INSULIN LISPRO 100 UNIT/ML 3ML VIAL SUBCUT ×3 (14:21→21:04)
--- NOTE | 2020-12-19 15:17 | PM.PN.1 ---
Subjective Subjective Date Patient Seen: 12/19/20 Time Patient Seen: 15:17 Interval history: Patient continues to be tired, confused. No specific complaints, denies chest pain, abdominal pain. She remains profoundly weak. Urine output minimal over the course of today. Creatinine dawit this AM. Exam Vital Signs (past 8 hours): - 12/19/20 08:00 12/19/20 12:30 Temperature 96.9 F L 97.1 F L Pulse Rate 57 L 79 Respiratory Rate 14 20 Blood Pressure 96/32 L 84/55 L Oxygen Delivery Method Nasal Cannula Oxygen Flow Rate 4 Narrative Exam Narrative: GENERAL APPEARANCE:? Chronically ill-appearing, though obese, pleasant but confused elderly female, in mild discomfort SKIN: Inspection of the skin reveals diffuse bruising. RLE circumferential erythema and skin thickening over the calf is slowly improving. coccyx bruising vs deep tissue injury. No erythema or warmth. HEENT:? Normocephalic atraumatic, extraocular muscles are intact, oropharynx is clear and mucous membranes are dry, neck is supple without adenopathy NECK: Supple and symmetric. There was no thyroid enlargement, and no tenderness, or masses were felt. CHEST: Normal AP diameter and normal contour without any kyphoscoliosis. LUNGS: Auscultation of the lungs revealed no wheezes, rhonchi, or rales. CARDIOVASCULAR: There was a regular rate and rhythm without any murmurs, gallops, rubs. Peripheral pulses were 2+ and symmetric. ABDOMEN: soft, mild suprapubic and bilateral lower quadrant tenderness, non-distended. MUSCULOSKELETAL: Diffuse tenderness with any palpation, hypersensitivity. No joint effusions. EXTREMITIES: R hallux partial amputation well healed, small lesions over 1st MTP without active infection. Left 1st and 3rd toe partial amputation, stitches in place, well healing. NEUROLOGIC: Alert, oriented to name and hospital. Confused. Slightly improved today. Moves all extremities.? Diffuse weakness. Objective Labs Result Diagrams: 12/19/20 05:43 12/19/20 05:43 Labs: Laboratory Results - last 24 hr 12/18/20 12/18/20 12/18/20 13:30 13:30 13:30 WBC RBC Hgb Hct MCV MCH MCHC RDW Plt Count Neut % (Auto) Lymph % (Auto) Dawes % (Auto) Eos % (Auto) Baso % (Auto) Neut # (Auto) Lymph # (Auto) Dawes # (Auto) Eos # (Auto) Baso # (Auto) ESR 44 H ABG pH ABG pCO2 ABG pO2 ABG HCO3 ABG Total CO2 ABG O2 Saturation ABG Base Excess FiO2 Sodium Potassium Chloride Carbon Dioxide BUN Creatinine Estimated GFR BUN/Creatinine Ratio Glucose Hemoglobin A1c Lactate Calcium Phosphorus Magnesium Iron TIBC % Saturation Transferrin Total Bilirubin AST ALT Alkaline Phosphatase Total Creatine Kinase 53 C-Reactive Protein 8.4 H Total Protein Albumin Globulin Albumin/Globulin Ratio 12/18/20 12/18/20 12/19/20 15:31 20:14 05:43 WBC 19.3 H RBC 2.54 L Hgb 7.1 L Hct 23.0 L MCV 90.3 MCH 27.9 MCHC 30.8 RDW 17.2 H Plt Count 98 L Neut % (Auto) 84.7 H Lymph % (Auto) 7.5 L Dawes % (Auto) 7.6 Eos % (Auto) 0.1 L Baso % (Auto) 0.1 Neut # (Auto) 30628 H Lymph # (Auto) 1500 Dawes # (Auto) 1500 H Eos # (Auto) 0 Baso # (Auto) 0 ESR ABG pH ABG pCO2 ABG pO2 ABG HCO3 ABG Total CO2 ABG O2 Saturation ABG Base Excess FiO2 Sodium 133 L Potassium 4.8 Chloride 102 Carbon Dioxide 22 BUN 74 H Creatinine 2.56 H Estimated GFR 18.3 L BUN/Creatinine Ratio 28.9 H Glucose 529 H* Hemoglobin A1c Lactate 2.2 H Calcium 7.7 L Phosphorus Magnesium Iron TIBC % Saturation Transferrin Total Bilirubin AST ALT Alkaline Phosphatase Total Creatine Kinase C-Reactive Protein Total Protein Albumin Globulin Albumin/Globulin Ratio 12/19/20 12/19/20 12/19/20 05:43 05:43 05:43 WBC RBC Hgb Hct MCV MCH MCHC RDW Plt Count Neut % (Auto) Lymph % (Auto) Dawes % (Auto) Eos % (Auto) Baso % (Auto) Neut # (Auto) Lymph # (Auto) Dawes # (Auto) Eos # (Auto) Baso # (Auto) ESR ABG pH ABG pCO2 ABG pO2 ABG HCO3 ABG Total CO2 ABG O2 Saturation ABG Base Excess FiO2 Sodium 137 Potassium 3.9 Chloride 107 Carbon Dioxide 22 BUN 73 H Creatinine 2.92 H Estimated GFR 15.7 L BUN/Creatinine Ratio 25.0 H Glucose 257 H D Hemoglobin A1c 8.8 H Lactate Calcium 8.0 L Phosphorus 5.0 H Magnesium 1.7 Iron 19 L TIBC 177 L % Saturation 11 L Transferrin 117 L Total Bilirubin 0.5 AST 15 ALT 12 Alkaline Phosphatase 67 Total Creatine Kinase C-Reactive Protein Total Protein 5.1 L Albumin 2.3 L Globulin 2.8 Albumin/Globulin Ratio 0.8 L 12/19/20 07:20 WBC RBC Hgb Hct MCV MCH MCHC RDW Plt Count Neut % (Auto) Lymph % (Auto) Dawes % (Auto) Eos % (Auto) Baso % (Auto) Neut # (Auto) Lymph # (Auto) Dawes # (Auto) Eos # (Auto) Baso # (Auto) ESR ABG pH 7.33 L ABG pCO2 39.5 ABG pO2 169 H ABG HCO3 21 L ABG Total CO2 22 ABG O2 Saturation 99 ABG Base Excess -5.0 L FiO2 60 Sodium Potassium Chloride Carbon Dioxide BUN Creatinine Estimated GFR BUN/Creatinine Ratio Glucose Hemoglobin A1c Lactate Calcium Phosphorus Magnesium Iron TIBC % Saturation Transferrin Total Bilirubin AST ALT Alkaline Phosphatase Total Creatine Kinase C-Reactive Protein Total Protein Albumin Globulin Albumin/Globulin Ratio [facility] Medical History ISMAEL (acute kidney injury) Cellulitis Dementia Diabetes type 2, uncontrolled Diarrhea Essential hypertension Hypertriglyceridemia Hypothyroid Surgical History H/O right mastectomy Kidney transplant recipient Family History Father Old age Other Renal failure Social History household members: children and none Smoking Status: Never smoker Assessment & Plan Assessment & Plan narrative: April Felix will be admitted for antibiotic treatment and management of a right great toe infection and ulcer.? She will also be closely monitored and treated for an acute on chronic kidney injury. 1. sepsis ?- source not entirely clear. May be dehydration and secondary to RLE cellulitis, however suspect something more. SOFA score 5. Recent UTI with Klebsiella, awaiting repeat culture. ?- No obvious other source at this time. There is a sacral bruising which does not appear to be infected. ?- some abdominal pain, UA reflexed for culture. Consider CT imaging of her abd/pevlis, ideally with contrast though with ISMAEL and renal transplant avoid contrast at this time. ?- f/u urine and blood cultures. ?- given zosyn and vancomycin in the ER. Continue cefepime and vanco per pharmacy as zosyn with vanc is associated with ISMAEL. ?- ESR and CRP only mildly elevated. consider additional imaging of RLE given history of prior osteomyelitis, XR ordered of R tib/fib which did not show evidence of osteo. Some improvement with right leg cellulitis today. ?- WBC on admit 21.7, 19 today. ?- try and obtain records from [facility] regarding recent toe amputation. ?- unclear baseline mental status, may have acute encephalopathy. ? 2. Acute on chronic CKD, solitary kidney, present on admission -She takes tacrolimus, anti-rejection for her kidneys which we will continue. Can continue home prednisone at 5 mg daily as well. -if worsening creatinine consider transfer to [facility] for nephrology consultation. ?- CK level within normal limits. ? 3. Diabetes type 1, poorly controlled ?- admission glucose > 400, no DKA. Continue lantus 45 nightly, 15 U lispro TID AC and high dose sliding scale. Continue to adjust. ?- hold jardiance 4. Acute anemia, chronic thrombocytopenia. ?- may be in setting of infection, BUN elevated watch for evidence of GI bleeding though none reported. Hg 8.3 from prior values around 10 five days ago. Plts improved from prior values. ?- check stool guaiac. ?- iron panel ordered with a deficiency. - Hg to 7.1 today, transfuse for < 7.0. No obvious source of bleeding currently. 5. Hypertension, chronic, present on admission -Continue home medications cautiously given sepsis. 6. Hypertriglycerdemia, chronic -Continue home dose of pravastatin 7. Hypothyroidism, chronic ?-continue home meds. 8. history of dementia, possible metabolic encephalopathy from sepsis. Code: DNR, surrogate is patient's daughter. Dispo: Admit as inpatient. Will need PT/OT. Suspect need for SNF. I have utilized all available immediate resources to obtain, update, or review the patient's current medications. Time Spent With Patient Critical Care time: I spent a total of [] minutes of critical care time on this patient's care today; this time is exclusive of procedural time.
--- NOTE | 2020-12-19 15:42 | PC.NURSE ---
Levin Urinary output= 40 mL at end of shift; MD notified; nurse swallow evaluation indicates dysphagia diet with honey nectar thick fluids, pills crushed with carrier; speech evaluation ordered for difficulty swallowing thin liquid; Oriented to self; LLE weepy to chandler pad, open to air; pt repositioned Q 2 throughout shift; waffle cushion for bruising and stage I pressure injury to coccyx; bed alarm active
[2020-12-19] MEDS: SODIUM CHLORIDE 0.9% 500 ML 1000 ML IV (16:23)
[2020-12-19 17:33] LABS: Hematocrit 22.3 % (36-46)
[2020-12-19 17:36] LABS: Hemoglobin 6.9 g/dL (12.0-16.0)
--- NOTE | 2020-12-19 17:56 | PM.EVENT ---
Event Note Date Patient Seen: 12/19/20 Time Patient Seen: 17:57 Event Note: Hg to 6.9. Ordered for 1 U PRBC transfusion. Discussed with patient and daughter. Wishes are for no dialysis. Do not wish to start any blood pressure support if needed. At that point would want to be comfortable. Can continue IV fluids, medications, blood if needed.
[2020-12-19 17:57] LABS: Vancomycin Random 9.2 ug/mL (10-40)
[2020-12-19] MEDS: VANCOMYCIN TROUGH 1 REQUEST MISC (18:31)
[2020-12-19] MEDS: CEFEPIME 2 GM in SODIUM CHLORIDE 0.9% 100 ML 200 ML IV (18:40)
[2020-12-19] MEDS: ACETAMINOPHEN 325 MG TABLET 650 MG PO (18:50)
[2020-12-19] MEDS: INSULIN GLARGINE 100 UNIT/ML 3ML PEN 45 UNIT SUBCUT (21:05)
[2020-12-19] MEDS: TACROLIMUS 0.5 MG CAPSULE 2 MG PO (21:26)
--- NOTE | 2020-12-19 23:14 | PC.NURSE ---
4L 100%. pt was mostly asleep today. confused. pt only had a few bites for dinner because she was too sleepy to be able to eat. Rt. leg edematous, weeping. low BP 87/42 pt got 500cc bolus BP 94/47. transfused 1PRBC pt tolerated well, but BP is still 91/43, UOP 50cc, provider aware.
[2020-12-20] VITALS (11 sets, daily range): BP systolic 90–133; BP diastolic 48–56; PULSE 61–76; RESP 17–24; TEMP 36–36.4; O2SAT 93–99
--- NOTE | 2020-12-20 01:01 | PC.NURSE ---
Addendum entered by Chiqui Holm R.N. 12/20/20 06:32: UOP only 75cc this shift and creatinine increased to 3.53. Dr Champagne informed, no new orders. Addendum entered by Chiqui Holm R.N. 12/20/20 05:18: Weight up 4.5kg today but patient asleep so not gotten up to rezero bed. Rescheduled for day shift to do weight after rezeroing bed when patient is gotten up later today. Original Note: Patient is oriented to self and birthdate only. Has lengthy delays in responding to questions and sometimes does not respond at all. Breath sounds diminished but CTA with sat of 100% on 4L/min oxygen per NC so decreased to 3L/min. HRR and was SR on last telemetry reading. BP has been trending low with last reading 92/44. BT present but hypoactive; has not had a BM since 12/16. Indwelling cathter is patent and urine is clear yellow but has had very minimal urinary output and MD is aware. Is being repositioned q2h as not moving herself. Does continue to have twitchy type movements. Extensive bruising all over. Right LE remains reddened with some of blistered areas now open and weeping. Incisions to left foot intact with no redness noted. States she is having pain does not respond to state where or what severity and FLACC is 0. Fall risk score is high and bed alarm is activated. Fistula right upper arm with + bruits.
[2020-12-20] MEDS: OXYCODONE IR 5 MG TABLET PO ×2 (01:11→19:39)
[2020-12-20 05:34] LABS: Add Manual Diff / Slide Review NO; Basophils Absolute Auto 100 /uL (0-100); Basophils Percent Auto 0.3 % (0-2); Eosinophils Absolute Auto 100 /uL (0-450); Eosinophils Percent Auto 0.6 % (2-4); Hemoglobin 7.6 g/dL (12.0-16.0); Lymphocytes Absolute Auto 1300 /uL (1100-4500); Lymphocytes Percent Auto 8.9 % (25-40); Mean Corpuscular HGB Conc 31.4 % (30-36); Mean Corpuscular Volume 89.4 fL (80-100); Monocytes Absolute Auto 900 /uL (0-900); Monocytes Percent Auto 6.3 % (3-14); Neutrophils Absolute Auto 12400 /uL (1500-7000); Neutrophils Percent Auto 83.9 % (50-75); Platelet Count 76 X10^3/uL (150-400); Red Blood Cell Count 2.72 X10^6/uL (4.0-5.2); Red Cell Distribution Width 16.8 % (11.6-14.8); White Blood Cell Count 14.7 X10^3/uL (4.5-11.0)
[2020-12-20 05:39] LABS: Hematocrit 24.3 % (36-46)
[2020-12-20 05:44] LABS: Alanine Aminotransferase 10 IU/L (<35); Albumin 2.3 g/dL (3.5-5.0); Albumin Globulin Ratio 0.9 (1.0-2.8); Alkaline Phosphatase 68 U/L (38-126); Aspartate Aminotransferase 16 IU/L (14-36); BUN Creatinine Ratio 22.1 (6-22); Bilirubin Total 0.7 mg/dL (0.2-1.3); Blood Urea Nitrogen 78 mg/dL (7-17); Carbon Dioxide 19 mmol/L (22-32); Chloride 108 mmol/L (98-107); Estimated Glomerular Filt Rate 12.6 mL/min (>60); Globulin 2.7 g/dL (1.7-4.1); Glucose 174 mg/dL (80-110); HEMOLYSIS < 15 (0-50); Magnesium 1.7 mg/dL (1.6-2.3); Phosphorous 5.1 mg/dL (2.8-4.1); Sodium 137 mmol/L (137-145)
[2020-12-20] MEDS: LEVOTHYROXINE 25 MCG TABLET 50 MCG PO (06:24)
[2020-12-20] MEDS: OXYCODONE IR 5 MG TABLET 10 MG PO (09:25)
[2020-12-20] MEDS: TACROLIMUS 0.5 MG CAPSULE 2 MG PO ×2 (09:28→21:14)
[2020-12-20] MEDS: PRAVASTATIN 20 MG TABLET PO (09:28)
[2020-12-20] MEDS: SODIUM CHLORIDE 0.9% FLUSH 10 ML IV ×2 (09:28→21:14)
[2020-12-20] MEDS: SERTRALINE 50 MG TABLET 25 MG PO (09:28)
[2020-12-20] MEDS: predniSONE 5 MG TABLET PO (09:28)
[2020-12-20] MEDS: PANTOPRAZOLE 40 MG VIAL IV ×2 (09:28→21:14)
[2020-12-20] MEDS: ENOXAPARIN 30 MG/0.3 ML SYRINGE SUBCUT (09:30)
[2020-12-20] MEDS: INSULIN LISPRO 100 UNIT/ML 3ML VIAL SUBCUT ×4 (09:47→21:15)
--- NOTE | 2020-12-20 12:33 | DI.CT.S_ITS ---
PROCEDURE: CT ABDOMEN PELVIS WO CON INDICATIONS: hematoma vs abscess near sacrum, ISMAEL no contrast TECHNIQUE: Noncontrast 5 mm thick sections acquired from the diaphragms to the symphysis. 5 mm coronal and sagittal reformats were then performed. For radiation dose reduction, the following was used: automated exposure control, adjustment of mA and/or kV according to patient size. COMPARISON: [facility], CT, CT ABDOMEN PELVIS WITHOUT CONTRAST, 03/05/2019, 9:06. FINDINGS: Image quality: Slightly limited given artifact from adjacent lower extremities.. ABDOMEN: Lung bases: Small right greater than left pleural effusions with adjacent atelectasis. Additional basilar atelectasis. Heart size is normal. No pericardial effusion. Coronary vascular as well as mitral annular calcifications. Solid organs: Liver is normal in size. Stable calcification within the left hepatic lobe. Gallbladder is surgically absent are. Pancreas is normal in contours. Spleen is normal in size. Stable peripherally calcified cyst within the spleen. Adjacent smaller hypodensity is also unchanged. These likely represent simple cysts. No adrenal nodules. There is diffuse renal atrophy. Renal allograft noted within the right pelvis is normal in size. No hydronephrosis. Likely adjacent vascular calcifications. Peritoneum and bowel: Unenhanced bowel loops demonstrate normal wall thickness and caliber. Semi: Diverticula of. No evidence of diverticulitis. No free fluid or air. Nodes and vessels: No retroperitoneal or mesenteric adenopathy by size criteria. There is diffuse vascular calcifications throughout the abdominal and pelvic vasculature. Focal dilation of the infrarenal abdominal aorta measuring up to 3.7 centimeters in AP diameter which is slightly increased from comparison exam where it measured 3.4 centimeters in AP diameter. This measures up to 4.2 centimeters in transverse diameter. This previously measured 3.5 centimeters on comparison. Miscellaneous: Diffuse atrophy of the abdominal wall musculature. There is diffuse anasarca. Within the subcutaneous soft tissues posterior to the lower lumbar spine/sacrum there is a fluid collection with adjacent inflammation measuring greater than simple free fluid. This measures approximately 3.2 x 14.3 x 12.7 centimeters. This is most consistent with a hematoma. PELVIS: Genitourinary: Bladder is nondistended with intraluminal Levin catheter. Miscellaneous: No inguinal hernias or adenopathy. Bones: No suspicious bony lesions. Diffuse degenerative changes of the spine and hips. No acute osseous abnormality. No vertebral body compression fractures. IMPRESSION: Large hematoma within the subcutaneous soft tissues adjacent to the lower lumbar spine/pelvis measuring 3.2 x 14.3 x 12.7 centimeters. Interval enlargement of infrarenal abdominal aortic aneurysm measuring up to 4.2 centimeters on today's examination compared to 3.5 centimeters on 03/05/2019 comparison. There is diffuse anasarca. Additional chronic findings as above. Dictated by: Adama Ramirez D.O. on 12/20/2020 at 12:19 Approved by: Adama Ramirez D.O. on 12/20/2020 at 12:31
[2020-12-20] MEDS: HYDROMORPHONE 1 MG INJ IV (12:46)
--- NOTE | 2020-12-20 13:00 | PC.NURSE ---
Day shift: Pt off unit for CT scan at approx 1300. Remains on 2L NC and on tele.
--- NOTE | 2020-12-20 13:24 | PC.NURSE ---
Day shift: Back on AC unit at approx [address] On 2L NC and on tele. No s/s of pain. Sleeping at this time.
--- NOTE | 2020-12-20 14:52 | P.PN_ITS ---
Subjective Subjective Date Patient Seen: 12/20/20 Time Patient Seen: 14:52 Interval history: Patient continues to be tired, confused. Complained of sacral pain today. Was transfused yesterday evening. Creatinine worsening. CT scan obtained and showed large hematoma. Exam Vital Signs (past 8 hours): - 12/20/20 08:00 12/20/20 10:08 12/20/20 12:00 Temperature 97.3 F L 97.6 F Pulse Rate 69 61 Respiratory Rate 18 22 Blood Pressure 104/56 L 101/52 L Pulse Oximetry 94 95 93 12/20/20 14:20 Temperature Pulse Rate Respiratory Rate Blood Pressure Pulse Oximetry 93 Oxygen Delivery Method Nasal Cannula Oxygen Flow Rate 2 Narrative Exam Narrative: GENERAL APPEARANCE:? Chronically ill-appearing, though obese, pleasant but confused elderly female, in mild discomfort SKIN: Inspection of the skin reveals diffuse bruising. RLE circumferential erythema and skin thickening over the calf is slowly improving. coccyx bruising vs deep tissue injury. No erythema or warmth. New erythema and swelling on the left buttock around a small cut, no induration or purulence noted. HEENT:? Normocephalic atraumatic, extraocular muscles are intact, oropharynx is clear and mucous membranes are dry, neck is supple without adenopathy NECK: Supple and symmetric. There was no thyroid enlargement, and no tenderness, or masses were felt. CHEST: Normal AP diameter and normal contour without any kyphoscoliosis. LUNGS: Auscultation of the lungs revealed no wheezes, rhonchi, or rales. CARDIOVASCULAR: There was a regular rate and rhythm without any murmurs, gallops, rubs. Peripheral pulses were 2+ and symmetric. ABDOMEN: soft, mild suprapubic and bilateral lower quadrant tenderness, non- distended. MUSCULOSKELETAL: Diffuse tenderness with any palpation, hypersensitivity. No joint effusions. EXTREMITIES: R hallux partial amputation well healed, small lesions over 1st MTP without active infection. Left 1st and 3rd toe partial amputation, stitches in place, well healing. NEUROLOGIC: Alert, oriented to name and hospital. Confused. Slightly improved today. Moves all extremities.? Diffuse weakness. Objective Labs Result Diagrams: 12/20/20 05:22 12/20/20 05:22 Labs: Laboratory Results - last 24 hr 12/19/20 12/19/20 12/19/20 17:20 17:20 18:00 WBC RBC Hgb 6.9 L* Hct 22.3 L MCV MCH MCHC RDW Plt Count Neut % (Auto) Lymph % (Auto) Rich % (Auto) Eos % (Auto) Baso % (Auto) Neut # (Auto) Lymph # (Auto) Rich # (Auto) Eos # (Auto) Baso # (Auto) Sodium Potassium Chloride Carbon Dioxide BUN Creatinine Estimated GFR BUN/Creatinine Ratio Glucose Calcium Phosphorus Magnesium Total Bilirubin AST ALT Alkaline Phosphatase Total Protein Albumin Globulin Albumin/Globulin Ratio Random Vancomycin 9.2 L Blood Type O Positive Antibody Screen Negative Crossmatch See Detail 12/20/20 12/20/20 05:22 05:22 WBC 14.7 H RBC 2.72 L Hgb 7.6 L Hct 24.3 L MCV 89.4 MCH 28.0 MCHC 31.4 RDW 16.8 H Plt Count 76 L Neut % (Auto) 83.9 H Lymph % (Auto) 8.9 L Rich % (Auto) 6.3 Eos % (Auto) 0.6 L Baso % (Auto) 0.3 Neut # (Auto) 51674 H Lymph # (Auto) 1300 Rich # (Auto) 900 Eos # (Auto) 100 Baso # (Auto) 100 Sodium 137 Potassium 4.0 Chloride 108 H Carbon Dioxide 19 L BUN 78 H Creatinine 3.53 H Estimated GFR 12.6 L BUN/Creatinine Ratio 22.1 H Glucose 174 H Calcium 8.0 L Phosphorus 5.1 H Magnesium 1.7 Total Bilirubin 0.7 AST 16 ALT 10 Alkaline Phosphatase 68 Total Protein 5.0 L Albumin 2.3 L Globulin 2.7 Albumin/Globulin Ratio 0.9 L Random Vancomycin Blood Type Antibody Screen Crossmatch [facility] Medical History ISMAEL (acute kidney injury) Cellulitis Dementia Diabetes type 2, uncontrolled Diarrhea Essential hypertension Hypertriglyceridemia Hypothyroid Surgical History H/O right mastectomy Kidney transplant recipient Family History Father Old age Other Renal failure Social History household members: children and none Smoking Status: Never smoker Assessment & Plan Assessment & Plan narrative: April Felix will be admitted for antibiotic treatment and management of a right great toe infection and ulcer.? She will also be closely monitored and treated for an acute on chronic kidney injury. 1. sepsis ?- source not entirely clear but may be due to RLE cellulitis, probably complicated by anemia due to large hematoma. SOFA score 5. Recent UTI with Klebsiella, awaiting repeat culture. ?- some abdominal pain, UA reflexed for culture ?- blood cultures without growth, urine cultures with yeast. Follow up urine to decide on treatment, likely not needed if makenzie. ?- given zosyn and vancomycin in the ER. Continue cefepime and vanco per pharmacy as zosyn with vanc is associated with ISMAEL. ?- ESR and CRP only mildly elevated. consider additional imaging of RLE given history of prior osteomyelitis, XR ordered of R tib/fib which did not show evidence of osteo. Some improvement with right leg cellulitis today. ?- WBC on admit 21.7, 19 today. ?- try and obtain records from [facility] regarding recent toe amputation. ?- also with acute encephalopathy according to daughter. ? 2. Acute on chronic CKD, solitary kidney, present on admission -She takes tacrolimus, anti-rejection for her kidneys which we will continue. Can continue home prednisone at 5 mg daily as well. -no wish for HD. Likely ISMAEL in setting of sepsis and anemia. ?- CK level within normal limits. ? 3. Diabetes type 1, poorly controlled ?- admission glucose > 400, no DKA. Continue lantus 45 nightly, 15 U lispro TID AC and high dose sliding scale. Continue to adjust. ?- hold jardiance 4. Acute anemia secondary to large low back / buttock hematoma, chronic thrombocytopenia. ?- Hg declined to 6.9 yesterday, transfused. Hg to 7.6 today after 1U PRBC. continue to support. Large hematoma noted on CT imaging. No interventions currently other than to support blood loss. 5. Hypertension, chronic, present on admission -Continue home medications cautiously given sepsis. 6. Hypertriglycerdemia, chronic -Continue home dose of pravastatin 7. Hypothyroidism, chronic ?-continue home meds. 8. history of dementia, possible metabolic encephalopathy from sepsis. Code: DNR, surrogate is patient's daughter. Dispo: Admit as inpatient. Will need PT/OT. Suspect need for SNF. If no improvement in creatinine consider palliative care / hospice. I have utilized all available immediate resources to obtain, update, or review the patient's current medications. Time Spent With Patient Critical Care time: I spent a total of [] minutes of critical care time on this patient's care today; this time is exclusive of procedural time.
[2020-12-20] MEDS: VANCOMYCIN 1,000 MG/200 ML PIGGYBACK 200 MG IV (16:27)
[2020-12-20] MEDS: CEFEPIME 2 GM in SODIUM CHLORIDE 0.9% 100 ML 200 ML IV (19:05)
[2020-12-20] MEDS: INSULIN GLARGINE 100 UNIT/ML 3ML PEN 45 UNIT SUBCUT (21:14)
[2020-12-21] VITALS (16 sets, daily range): BP systolic 104–120; BP diastolic 40–79; PULSE 69–82; RESP 16–20; TEMP 36–36.6; O2SAT 95–100
[2020-12-21 06:14] LABS: Add Manual Diff / Slide Review NO; Basophils Absolute Auto 0 /uL (0-100); Basophils Percent Auto 0.1 % (0-2); Eosinophils Absolute Auto 0 /uL (0-450); Eosinophils Percent Auto 0.3 % (2-4); Hemoglobin 7.2 g/dL (12.0-16.0); Lymphocytes Absolute Auto 1400 /uL (1100-4500); Lymphocytes Percent Auto 10.5 % (25-40); Mean Corpuscular HGB Conc 31.2 % (30-36); Mean Corpuscular Hemoglobin 28.1 PG (26-34); Mean Corpuscular Volume 90.1 fL (80-100); Monocytes Absolute Auto 800 /uL (0-900); Monocytes Percent Auto 5.7 % (3-14); Neutrophils Absolute Auto 11000 /uL (1500-7000); Neutrophils Percent Auto 83.4 % (50-75); Platelet Count 70 X10^3/uL (150-400); Red Blood Cell Count 2.55 X10^6/uL (4.0-5.2); Red Cell Distribution Width 16.7 % (11.6-14.8); White Blood Cell Count 13.2 X10^3/uL (4.5-11.0)
[2020-12-21 06:19] LABS: Alanine Aminotransferase 8 IU/L (<35); Albumin 2.2 g/dL (3.5-5.0); Albumin Globulin Ratio 0.8 (1.0-2.8); Alkaline Phosphatase 65 U/L (38-126); Aspartate Aminotransferase 12 IU/L (14-36); BUN Creatinine Ratio 21.7 (6-22); Bilirubin Total 0.5 mg/dL (0.2-1.3); Blood Urea Nitrogen 80 mg/dL (7-17); Carbon Dioxide 19 mmol/L (22-32); Chloride 109 mmol/L (98-107); Globulin 2.7 g/dL (1.7-4.1); Glucose 179 mg/dL (80-110); HEMOLYSIS < 15 (0-50); Magnesium 1.9 mg/dL (1.6-2.3); Phosphorous 4.8 mg/dL (2.8-4.1); Potassium 4.2 mmol/L (3.4-5.1); Sodium 135 mmol/L (137-145); Total Protein 4.9 g/dL (6.3-8.2)
[2020-12-21] MEDS: OXYCODONE IR 5 MG TABLET 10 MG PO (09:11)
[2020-12-21] MEDS: LEVOTHYROXINE 25 MCG TABLET 50 MCG PO (09:11)
[2020-12-21] MEDS: PANTOPRAZOLE 40 MG VIAL IV ×2 (09:12→21:00)
[2020-12-21] MEDS: TACROLIMUS 0.5 MG CAPSULE 2 MG PO ×2 (09:13→21:26)
[2020-12-21] MEDS: SERTRALINE 50 MG TABLET 25 MG PO (09:13)
[2020-12-21] MEDS: predniSONE 5 MG TABLET PO (09:14)
[2020-12-21] MEDS: HYDROMORPHONE 1 MG INJ IV ×2 (09:14→15:03)
[2020-12-21] MEDS: SODIUM CHLORIDE 0.9% FLUSH 10 ML IV ×2 (09:29→21:00)
[2020-12-21] MEDS: PRAVASTATIN 20 MG TABLET PO (09:43)
--- NOTE | 2020-12-21 12:46 | PM.PN.1 ---
Subjective Subjective Date Patient Seen: 12/21/20 Time Patient Seen: 12:46 Interval history: Patient continues to be tired, confused. Complained of sacral pain today. transfusion ordered today for Hg 7.2 and creatinine slightly worsening (may be stabilizing). Exam Vital Signs (past 8 hours): - 12/21/20 05:00 12/21/20 06:01 12/21/20 08:00 Temperature 97.0 F L 97.6 F Pulse Rate 82 72 Respiratory Rate 18 16 Blood Pressure 114/60 118/49 L Pulse Oximetry 97 99 100 12/21/20 08:22 12/21/20 08:29 12/21/20 08:40 Temperature 97.2 F L 97.7 F Pulse Rate 72 70 Respiratory Rate 20 20 Blood Pressure 118/79 112/49 L Pulse Oximetry 98 12/21/20 09:00 12/21/20 11:30 12/21/20 11:55 Temperature 97.1 F L 97.8 F Pulse Rate 74 75 Respiratory Rate 20 16 Blood Pressure 118/40 L 104/60 Pulse Oximetry 99 99 Oxygen Delivery Method Nasal Cannula Oxygen Flow Rate 1.5 Narrative Exam Narrative: GENERAL APPEARANCE:? Chronically ill-appearing, though obese, pleasant but confused elderly female, in mild discomfort SKIN: Inspection of the skin reveals diffuse bruising. RLE circumferential erythema and skin thickening over the calf is slowly improving. coccyx bruising vs deep tissue injury. No erythema or warmth. New erythema and swelling on the left buttock around a small cut, no induration or purulence noted. HEENT:? Normocephalic atraumatic, extraocular muscles are intact, oropharynx is clear and mucous membranes are dry, neck is supple without adenopathy NECK: Supple and symmetric. There was no thyroid enlargement, and no tenderness, or masses were felt. CHEST: Normal AP diameter and normal contour without any kyphoscoliosis. LUNGS: Auscultation of the lungs revealed no wheezes, rhonchi, or rales. CARDIOVASCULAR: There was a regular rate and rhythm without any murmurs, gallops, rubs. Peripheral pulses were 2+ and symmetric. ABDOMEN: soft, mild suprapubic and bilateral lower quadrant tenderness, non-distended. MUSCULOSKELETAL: Diffuse tenderness with any palpation, hypersensitivity. No joint effusions. EXTREMITIES: R hallux partial amputation well healed, small lesions over 1st MTP without active infection. Left 1st and 3rd toe partial amputation, stitches in place, well healing. NEUROLOGIC: Alert, oriented to name and hospital. Confused. Slightly improved today. Moves all extremities.? Diffuse weakness. Objective Labs Result Diagrams: 12/21/20 05:37 12/21/20 05:37 Labs: Laboratory Results - last 24 hr 12/19/20 12/21/20 12/21/20 18:00 05:37 05:37 WBC 13.2 H RBC 2.55 L Hgb 7.2 L Hct 23.0 L MCV 90.1 MCH 28.1 MCHC 31.2 RDW 16.7 H Plt Count 70 L Neut % (Auto) 83.4 H Lymph % (Auto) 10.5 L Monroe % (Auto) 5.7 Eos % (Auto) 0.3 L Baso % (Auto) 0.1 Neut # (Auto) 24334 H Lymph # (Auto) 1400 Monroe # (Auto) 800 Eos # (Auto) 0 Baso # (Auto) 0 Sodium 135 L Potassium 4.2 Chloride 109 H Carbon Dioxide 19 L BUN 80 H Creatinine 3.69 H Estimated GFR 12.0 L BUN/Creatinine Ratio 21.7 Glucose 179 H Calcium 8.0 L Phosphorus 4.8 H Magnesium 1.9 Total Bilirubin 0.5 AST 12 L ALT 8 Alkaline Phosphatase 65 Total Protein 4.9 L Albumin 2.2 L Globulin 2.7 Albumin/Globulin Ratio 0.8 L Blood Type O Positive Antibody Screen Negative Crossmatch See Detail [facility] Medical History ISMAEL (acute kidney injury) Cellulitis Dementia Diabetes type 2, uncontrolled Diarrhea Essential hypertension Hypertriglyceridemia Hypothyroid Surgical History H/O right mastectomy Kidney transplant recipient Family History Father Old age Other Renal failure Social History household members: children and none Smoking Status: Never smoker Assessment & Plan Assessment & Plan narrative: 1. sepsis secondary to RLE cellulitis. ?- source not entirely clear but may be due to RLE cellulitis, probably complicated by anemia due to large hematoma. SOFA score 5. Recent UTI with Klebsiella, repeat cultures negative on admission. ?- some abdominal pain, UA reflexed for culture but negative. ?- blood cultures without growth, urine cultures with yeast. ?- given zosyn and vancomycin in the ER. Continued cefepime and vanco per pharmacy as zosyn with vanc is associated with ISMAEL. Can discontinue vanco today given negative cultures for MRSA. Consider narrowing further if further improvement in the next few days. ?- ESR and CRP only mildly elevated. consider additional imaging of RLE given history of prior osteomyelitis, XR ordered of R tib/fib which did not show evidence of osteo. Some improvement with right leg cellulitis since admission. ?- WBC on admit 21.7, now down to 13. ?- also with acute encephalopathy according to daughter. ? 2. Acute on chronic CKD, solitary kidney, present on admission -She takes tacrolimus, anti-rejection for her kidneys which we will continue. Can continue home prednisone at 5 mg daily as well. -no wish for HD. Likely ISMAEL in setting of sepsis and anemia. ?- CK level within normal limits. ? 3. Diabetes type 1, poorly controlled ?- admission glucose > 400, no DKA. Continue lantus 45 nightly, 15 U lispro TID AC and high dose sliding scale. Continue to adjust. ?- hold jardiance 4. Acute anemia secondary to large low back / buttock hematoma, chronic thrombocytopenia. ?- Hg declined to 6.9 yesterday, transfused. Hg to 7.2, ordered for 1 U PRBC today to help with ISMAEL. Overall 2U PRBC given. continue to support. Large hematoma noted on CT imaging. No interventions currently other than to support blood loss. 5. Hypertension, chronic, present on admission -Continue home medications cautiously given sepsis. 6. Hypertriglycerdemia, chronic -Continue home dose of pravastatin 7. Hypothyroidism, chronic ?-continue home meds. 8. history of dementia, metabolic encephalopathy from sepsis. 9. Acute respiratory failure with hypoxia. - improving, suspect in setting of sepsis. Small bilateral pleural effusions noted on CT with atelectasis. Possibly infectious or aspiration pneumonia but less likely at this time. continue cefepime as noted above. - seen by speech therapy today. Code: DNR, surrogate is patient's daughter. Dispo: Admit as inpatient. Will need PT/OT. Suspect need for SNF. If no improvement in creatinine consider palliative care / hospice. I have utilized all available immediate resources to obtain, update, or review the patient's current medications. Time Spent With Patient Critical Care time: I spent a total of [] minutes of critical care time on this patient's care today; this time is exclusive of procedural time.
--- NOTE | 2020-12-21 13:51 | CM.DANOTE ---
DCP/Assessment: Reviewed chart. Patient is a 75yr old female admitted [facility] with nausea and vomiting. PCP listed is Ary Trinh. Primary payor is 1)Medicare 2)[employer]. Per H&P patient found down by daughter/Jennifer. Patient currently resides with [place]enn[place] Son reports that Jennifer is primary caregiver. Per son, Jennifer put patient to bed and next day she was found on the floor. Son came to visit patient and offer assistance. Son does live in the state. Son at bedside during visit. He reports that patient is primary w/c bound at baseline. Spoke with Dr. Javier and he reports that he has spoken to family and that they do not want patient on HD. Therefore, if kidney functions worsens they will be considering hospice/comfort measures. Patient receiving blood today. P: CM team to follow up closely. Anticipate slow recovery vs. hospice. CORINA Prater Discharge Planning/Care Management CM Discharge Assessment Start: 12/21/20 13:47 Freq: Status: Active Protocol: Document 12/21/20 13:47 KJS (Rec: 12/21/20 13:51 KJS [id number]) Discharge Planning Assessment Assigned Nursing Associate CORINA Prater Contact Information Chidi (son) ph# [phone] Jennifer (DPOA) ph# [phone] Advance Directives? No History Provided By Patient,Family Member,Medical Record Household Members children,none Type of transporation used prior to Relies on Others admit Independent with ADL's No Is patient alert and oriented? No Caregiver for Another No DME Already Rented / Owned Wheelchair Comment Son reports that patient primarily w/c bound. Comment Pending Transportation Arrangement Family to provide transport. Additional Comment Pending If patient plan is home with home health No : Has signed face to face form been completed? Whiteboard Updated in Patient Room with Yes name and ext. # of Nursing Associate Review Status In Process Next Review Type Continued Stay Review
--- NOTE | 2020-12-21 14:04 | ST.IPCSEOM ---
Visit Care Team Role Provider Type Ary Denton PA-C Primary Care Provider Non-Staff Specialty: Medical Address: [address] [place] [address] [address], [place], [address] Email: Joanna Silva MD Emergency Provider Physician Referring Provider Specialty: Emergency Medicine Address: [address] [place] [address], [id number] Email: Kelvin Javier DO Admit Provider Physician Attending Provider Specialty: Internal Medicine Address: [address] [place] [address], [id number] Email: [email or web address] Current Diagnoses Sepsis, unspecified organism (12/18/20) Past Medical History (Last Reviewed 12/18/20 @ 18:23 by Kelvin Javier DO) ISMAEL (acute kidney injury) (Medical) Cellulitis (Medical) Dementia (Medical) Diabetes type 2, uncontrolled (Medical) Diarrhea (Medical) Essential hypertension (Medical) H/O right mastectomy (Medical) Hypertriglyceridemia (Medical) Hypothyroid (Medical) Kidney transplant recipient (Medical) Speech-Language Pathology Swallow Evaluation ASSISTANT WAREHOUSE MANAGER Clinical Swallow Evaluation Start: 12/21/20 13:42 Freq: Status: Active Protocol: Document 12/21/20 13:42 LNK (Rec: 12/21/20 14:04 LNK [id number]) Clinical Swallow Evaluation Session Time Visit Start Time 12:00 Visit Stop Time 12:15 Total Visit Minutes [address] Javier Setting Assessment Location Acute Care Visit Type Note Type Initial evaluation Next Note Type Next Note Type Re-evaluation Patient Information Identification Type Name,Wristband History April Felix is a 73 y.o.? female with a history of a right renal transplant, DM type 1, PAD with prior bilateral partial toe amputations, hypertension, hyperlipidemia, dementia, and depression presents with worsening weakness, lethargy. She was reportedly down for an unknown period of time and found by her daughter. In the ER pt was diagnosed with sepsis,- source not entirely clear. May be dehydration and secondary to RLE cellulitis, however suspect something more . pt was placed on a dysphagia blenderized with honey thick liquids for safety until ST evaluation. Subjective Observations pt was in bed. Easy aroused with touch. Introduced self and purpose. Family was in attendance. Reported by Patient Current Diet Pureed,Honey thick liquids Baseline Feeding Method Dependent for feeding Objective Assessment Mental Status Responsive,Cooperative Oral Integrity WFL Dentition Upper dentures/partials Lip Function Within normal limits Alternating Pucker/Lip Retraction Within normal limits Tongue Function Within normal limits Tongue Protrusion Within normal limits Tongue Lateralization Within normal limits Jaw Function Within normal limits Observations of Jaw at Rest Within normal limits Jaw Opening Within normal limits Jaw Closing Within normal limits Jaw Lateralization Within normal limits Hard/Soft Palate Function Within normal limits Observations of Hard/Soft Palate Within normal limits Food and Liquid Trials Position During Assessment Upright (90 degrees),Slightly reclined Liquids Trialed Ice chips,Thin Solids Trialed Puree,Dysphagia Mechanical, Regular Administration Type Tea spoon,Cup single sip, Controlled cup sip,Straw,Needs some assistance Oral Impairment Mildly impaired Oral Phase Comments OME indicated ROM and strength to be WFL. Pt has upper denture only, lower denture left at home (?). Pt followed all directions immediately. Due to a lack of her lower denture, advanced textures were not presented. Pt was able to masticate soft peaches . No oral residual observed. Pt reported she was tired and has no appetite. She was able to suck from a straw for thin liquids. Pharyngeal Impairment Within functional limits Pharyngeal Phase Comments Hyolaryngeal elevation appeared to be adequate upon palpation. Swallow was timely with no wet voicing following swallows. Pt did cough with the larger straw from the bedside cup. Trials with a thin, white straw were successful with no cough observed. Recommend that pt use the thin, white straws in pt's room when drinking thin liquids. Fatigue/Endurance Moderate fatigue Response/Comments Pt encouraged to drink 1 sip at a time, avoiding multiple swallows using a straw. Results Pt presents with mild dysphagia characterized by missing lower denture, and overall fatigue. Pt was agreeable to PO trials, but did not much more foods as she was very tired. Suspect that pt's swallowing will improve as overall status improves. Findings Swallowing Function Dysphagia unspecified Severity of Swallow Impairment Mildly impaired Contributing Factors to Swallow Reduced alertness or attention Impairment ,Mastication inefficiency, Impaired velopharyngeal closure/coordination,Impaired airway protection Prognosis Good Based on Cognitive status,Family support,Comorbidities,Duration of symptoms/severity Impact on Safety and Functioning Risk for aspiration Recommendations Instrumental Assessment No Swallowing Treatment Yes Frequency 1-2x/day Duration While inpatient Recommended Solids Dysphagia Mechanical Recommended Liquids Thin Safety Precautions/Swallowing Supervision needed for all Recommendations meals,Feed only when alert, Remain upright (90 degrees) during all oral intake,Upright position at least 30 minutes after meals,Small bites and sips when eating,Slow rate; swallow between bites,Sip by straw only,1 to 1 feeding assistance,Family assistance/ supervision Medication Recommendations Whole in Carrier,Crushed in Carrier Discharge Recommendations senior living facility,Home with Home Health Education Patient/Caregiver Education Described results of evaluation,Patient expressed understanding of evaluation, Patient expressed agreement with goals & treatment plans, Family/caregivers expressed agreement with goals & treatment plans,Patient expressed understanding of safety precautions Goals Short-term Goals Pt's diet will advance to the least restrictive diet to meet hydration and nutritional needs without s/sx aspiration
[2020-12-21] MEDS: INSULIN LISPRO 100 UNIT/ML 3ML VIAL SUBCUT ×2 (17:59→21:01)
[2020-12-21] MEDS: CEFEPIME 2 GM in SODIUM CHLORIDE 0.9% 100 ML 200 ML IV (19:05)
[2020-12-21] MEDS: INSULIN GLARGINE 100 UNIT/ML 3ML PEN 45 UNIT SUBCUT (21:00)
--- NOTE | 2020-12-21 23:17 | PC.NURSE ---
Spoke to daughter over the phone this afternoon and she would like to take her mom home with hospice. She stated her mom has been declining the last couple of months. I left a note with the hospitalist.
[2020-12-22] VITALS (10 sets, daily range): BP systolic 119–158; BP diastolic 42–79; PULSE 71–85; RESP 16–18; TEMP 36.2–36.6; O2SAT 95–99
[2020-12-22] MEDS: OXYCODONE IR 5 MG TABLET PO ×2 (01:08→09:21)
--- NOTE | 2020-12-22 02:31 | PC.NURSE ---
Patient is confused but does respond to some questions asked and will sometimes follow direction. Breath sounds diminished but CTA; oxygen at 1L/min with sat of 99% so stopped O2 and will continue to reassess to determine if needed. HR irregular and telemetry reading was last recorded as afib CVR. BT present but has not had a BM since 12/16. Indwelling catheter is patent but continues to have low urine output but has also had minimal po intake. Not moving self so is being repositioned q2h. When last turned complained of back pain and had FLACC of 5 so was medicated with oxycodone. Gait not assessed; uncertain if patient has been out of bed since admission. Right LE remains reddened but decreased; open areas noted and there is still some weeping from open areas. 1+ bilateral LE edema. Fall risk score is high and bed alarm is activated.
[2020-12-22] MEDS: LEVOTHYROXINE 25 MCG TABLET 50 MCG PO (06:01)
[2020-12-22] MEDS: PANTOPRAZOLE 40 MG VIAL IV ×2 (08:46→22:06)
[2020-12-22] MEDS: predniSONE 5 MG TABLET PO (08:46)
[2020-12-22] MEDS: SERTRALINE 50 MG TABLET 25 MG PO (08:47)
[2020-12-22] MEDS: PRAVASTATIN 20 MG TABLET PO (08:47)
[2020-12-22] MEDS: SODIUM CHLORIDE 0.9% FLUSH 10 ML IV ×2 (08:50→22:06)
[2020-12-22] MEDS: TACROLIMUS 0.5 MG CAPSULE 2 MG PO (09:20)
--- NOTE | 2020-12-22 09:50 | SLP.IPNOTE ---
April was sleeping fully reclined in her bed when clinician arrived at 9:35. She responded to a verbal greeting and answered questions, but was not alert enough to safely participate in PO trials.
[2020-12-22 10:23] LABS: Hematocrit 26.3 % (36-46); Hemoglobin 8.4 g/dL (12.0-16.0); Mean Corpuscular Hemoglobin 28.9 PG (26-34); Mean Corpuscular Volume 90.2 fL (80-100); Platelet Count 77 X10^3/uL (150-400); Red Blood Cell Count 2.92 X10^6/uL (4.0-5.2); Red Cell Distribution Width 16.6 % (11.6-14.8)
[2020-12-22 10:35] LABS: BUN Creatinine Ratio 24.5 (6-22); Blood Urea Nitrogen 83 mg/dL (7-17); Calcium 8.5 mg/dL (8.4-10.2); Carbon Dioxide 19 mmol/L (22-32); Chloride 112 mmol/L (98-107); Estimated Glomerular Filt Rate 13.2 mL/min (>60); Glucose 88 mg/dL (80-110); HEMOLYSIS < 15 (0-50); Potassium 4.1 mmol/L (3.4-5.1); Sodium 139 mmol/L (137-145)
[2020-12-22] MEDS: SCOPOLAMINE 1 PATCH TOP (10:58)
--- NOTE | 2020-12-22 14:05 | CM.DPNOTE ---
Faxed referral packet to [facility] per Rachell and received fax conf. April Fischer CM Asst.
--- NOTE | 2020-12-22 14:55 | CM.DPC ---
DCP/continued: Reviewed chart. Received notification in AM rounds that provider would like hospice evaluation. SCENE AND LIGHTING DESIGN LECTURER met with son/Chidi at bedside and called daughter/JOSÉ Rodriguez. Both report that they would like patient on hospice services as soon as possible. Family requesting that patient d/c home once DME ordered by hospice has been delivered. Daughter has no preference in Hospice agencies but prefers the quickest. Notified daughter that certain hospices serve different areas. Current provider [place] is [facility]. SCENE AND LIGHTING DESIGN LECTURER asked ANGELICA/April to fax clinical to [facility] and SCENE AND LIGHTING DESIGN LECTURER left message. In addition, spoke briefly with son about POLST. Son in agreement to complete on patient's behalf once he speaks with his sister. POLST form left in room. SCENE AND LIGHTING DESIGN LECTURER will attempt to reach provider to get it signed. P: Anticipate home with hospice once all arrangements secured. TAMMY
--- NOTE | 2020-12-22 14:55 | PM.PN.1 ---
Subjective Subjective Date Patient Seen: 12/22/20 Time Patient Seen: 08:00 Interval history: Today patient was lethargic and weak. She was complaining of buttock pain and toe pain. She appeared uncomfortable. Received message that overnight daughter wanted to take patient home with hospice. Called daughter and discussed the patient's multiple medical conditions and continued decline. Daughter states patient would never want dialysis, would not want heroic measures, and prior to admission already was having difficulty at home and poor quality of life. She says her mother would want to focus on comfort and would want to with family around her and she wants to take her home as soon that is feasible. Exam Vital Signs (past 8 hours): - 12/22/20 07:50 12/22/20 08:00 12/22/20 09:41 Temperature 97.8 F Pulse Rate 75 Respiratory Rate 17 Blood Pressure 119/75 Pulse Oximetry 95 97 97 12/22/20 12:15 Temperature 97.1 F L Pulse Rate 79 Respiratory Rate 16 Blood Pressure 136/60 Pulse Oximetry 98 Oxygen Delivery Method Room Air Oxygen Flow Rate 0 Narrative Exam Narrative: GEN:? Chronically ill-appearing, mild discomfort SKIN: diffuse bruising. RLE circumferential erythema and skin thickening over the calf. coccyx bruising. erythema and swelling on the left buttock around a small cu PULM: coarse breath sounds bilaterally ABD: soft, mild diffuse tenderness MUSCULOSKELETAL: Diffuse tenderness with palpation, hypersensitivity. EXTREMITIES: R hallux partial amputation well healed, small painful ulcers on toes without active infection. Left 1st and 3rd toe partial amputation, stitches in place, well healing. NEUROLOGIC: Lethargic, fatigued Objective Labs Result Diagrams: 12/22/20 10:06 12/22/20 10:06 Labs: Laboratory Results - last 24 hr 12/19/20 12/22/20 12/22/20 18:00 10:06 10:06 WBC 12.0 H RBC 2.92 L Hgb 8.4 L Hct 26.3 L MCV 90.2 MCH 28.9 MCHC 32.0 RDW 16.6 H Plt Count 77 L Sodium 139 Potassium 4.1 Chloride 112 H Carbon Dioxide 19 L BUN 83 H Creatinine 3.39 H Estimated GFR 13.2 L BUN/Creatinine Ratio 24.5 H Glucose 88 Calcium 8.5 Crossmatch See Detail [facility] Medical History ISMAEL (acute kidney injury) Cellulitis Dementia Diabetes type 2, uncontrolled Diarrhea Essential hypertension Hypertriglyceridemia Hypothyroid Surgical History H/O right mastectomy Kidney transplant recipient Family History Father Old age Other Renal failure Social History household members: children and none Smoking Status: Never smoker Assessment & Plan Assessment & Plan narrative: 1. sepsis secondary to RLE cellulitis. with acute metabolic encephalopathy - source not entirely clear but may be due to RLE cellulitis, probably complicated by anemia due to large hematoma. SOFA score 5. Recent UTI with Klebsiella, repeat cultures negative on admission. - some abdominal pain, UA reflexed for culture but negative. - blood cultures without growth, urine cultures with yeast. - given zosyn and vancomycin in the ER. Continued cefepime and vanco per pharmacy as zosyn with vanc is associated with ISMAEL. Can discontinue vanco today given negative cultures for MRSA. Consider narrowing further if further improvement in the next few days. - ESR and CRP only mildly elevated. consider additional imaging of RLE given history of prior osteomyelitis, XR ordered of R tib/fib which did not show evidence of osteo. Some improvement with right leg cellulitis since admission. - WBC on admit 21.7, now down to 12. ? 2. Acute on chronic CKD, solitary kidney, present on admission -She takes tacrolimus, anti-rejection for her kidneys which we will continue. Can continue home prednisone at 5 mg daily as well. -no wish for HD. Likely ISMAEL in setting of sepsis and anemia. -CK level within normal limits. ? 3. Diabetes type 1, poorly controlled ?- admission glucose > 400, no DKA. Continue lantus 45 nightly, 15 U lispro TID AC and high dose sliding scale. Continue to adjust. ?- hold jardiance 4. Acute anemia secondary to large low back / buttock hematoma from blood loss, chronic thrombocytopenia. -hematoma likely from fall when found down -Large hematoma noted on CT imaging -Hgb dropped multiple times and has received a total of 2U PRBC, today improved to 8s 5. Hypertension, chronic, present on admission -Continue home medications cautiously given sepsis. 6. Hypertriglycerdemia, chronic -Continue home dose of pravastatin 7. Hypothyroidism, chronic ?-continue home meds. 8. history of dementia, metabolic encephalopathy from sepsis. 9. Acute respiratory failure with hypoxia. ?- improving, suspect in setting of sepsis. Small bilateral pleural effusions noted on CT with atelectasis. Possibly infectious or aspiration pneumonia but less likely at this time. continue cefepime as noted above. After discussion with daughter, goal is to keep patient without pain or anxiety, to keep comfortable, and to have her pass away at home if possible. Family is interested in hospice Code: DNR, surrogate is patient's daughter. Dispo: plan to dc with hospice Time Spent With Patient Critical Care time: I spent a total of [] minutes of critical care time on this patient's care today; this time is exclusive of procedural time.
--- NOTE | 2020-12-22 15:48 | CM.DANOTE ---
DCP/continued: Reviewed chart. Current plan is for patient to d/c home with [facility]. MEAT TEAM LEAD received return call from Savannah at [facility] and she confirms that they can see patient at residence tomorrow 12-23-20 around 4:00pm. MEAT TEAM LEAD made attempt to notify provider and left note for him to complete POLST with son. Patient will need to transport via non-urgent ambulance transport tomorrow around 3:00pm. MEAT TEAM LEAD spoke with daughter/Jennifer and she is aware and agreeable to plan. Daughter reports that she wants to get patient home as soon as possible. P: Home with [facility] on 12-23-20. TAMMY
--- NOTE | 2020-12-22 17:13 | SLP.IPNOTE ---
Per nurse, patient will be discharged on hospice tomorrow (12/23/2020). Discharging from speech therapy at this time. Continue current diet of dysphagia mechanical and thin liquids.
[2020-12-22] MEDS: CEFEPIME 2 GM in SODIUM CHLORIDE 0.9% 100 ML 200 ML IV (19:56)
[2020-12-23 02:37] VITALS: O2SAT 96
--- NOTE | 2020-12-23 02:50 | PC.NURSE ---
Patient seen earlier this shift. Has been asleep and having intermittent periods of apnea earlier but now has 15 seconds of deep breathing followed by 10 seconds of shallow breaths. Breath sounds CTA with RA sat of 96%. HRR. BT present but has not had a BM since 12/16. Indwelling catheter is patent; UOP has increased over past day despite patient taking very minimal po intake. Is being repositioned q2h; during night using Debra tilt function to minimize sleep interruptions as per MD order. Is expected to discharge later today on hospice. FLACC score is 0. Fall risk score is high and bed alarm is activated.
[2020-12-23] MEDS: LEVOTHYROXINE 25 MCG TABLET 50 MCG PO (06:30)
[2020-12-23 06:39] VITALS: O2SAT 99
[2020-12-23 08:00] VITALS: BP 152/88; PULSE 90; RESP 16; TEMP 36.6; O2SAT 95; O2SAT 96
--- NOTE | 2020-12-23 08:36 | CM.DANOTE ---
Addendum entered by Rachell Frias 12/23/20 13:29: Notified [facility] of d/c plan. KJS Original Note: DCP/continued: Reviewed chart. Spoke with provider re: d/c home with hospice today. Provider agreeable and will place d/c order in. Patient requiring BLS transport secondary to her inability to ambulate and/or move safely. [facility] expected to see patient in the residence today around 4:00pm. Per [facility] DME expected to be delivered this AM to residence. ADULT LITERACY TEACHER will check with daughter prior to departure to make sure DME has been delivered. POLST form completed by family but needs to be signed by provider. ADULT LITERACY TEACHER asked ANGELICA/April to coordinate transport. P: Home today with [facility]. CORINA Prater
--- NOTE | 2020-12-23 08:43 | CM.DPNOTE ---
Called and spoke to Le Jarrett at [facility] for 1400 BLS transport to patient's address. April Fischer CM Asst.
[2020-12-23] MEDS: SERTRALINE 50 MG TABLET 25 MG PO (09:08)
[2020-12-23] MEDS: predniSONE 5 MG TABLET PO (09:08)
[2020-12-23] MEDS: TACROLIMUS 0.5 MG CAPSULE 2 MG PO (09:08)
[2020-12-23] MEDS: SODIUM CHLORIDE 0.9% FLUSH 10 ML IV (09:10)
[2020-12-23] MEDS: PANTOPRAZOLE 40 MG VIAL IV (09:10)
[2020-12-23] MEDS: PRAVASTATIN 20 MG TABLET PO (09:13)
[2020-12-23 09:25] VITALS: O2SAT 95
[2020-12-23] MEDS: HYDROMORPHONE 1 MG INJ IV ×2 (10:08→13:21)
--- NOTE | 2020-12-23 13:45 | PC.NURSE ---
Discharge: Report given to [facility] crew. Pt received dilaudid IV prior to d/c. Amb crew received there paper work and POLST form. Crew given Pt packet of paper work for the family. Pt transfered to home via [facility]. They are waiting for her.
--- NOTE | 2020-12-23 20:57 | P.DS_ITS ---
History of Present Illness History of Present Illness Chief complaint: Weakness, N,V,D Narrative: Per Dr. Javier: April Felix is a 73 y.o.? female with a history of a right renal transplant, DM type 1, PAD with prior bilateral partial toe amputations, hypertension, hyperlipidemia, dementia, and depression presents with worsening weakness, lethargy.? She was reportedly down for an unknown period of time and found by her daughter.? And patient does not recall any inciting events but has been unable to move for the past couple of weeks.? She was seen in the emergency room proximally 5 days ago and diagnosed with a cellulitis of her left foot and was started on Keflex, she recently had a partial toe amputation of the left approximately 1-2 months ago.? She was admitted here in 2019 and was transferred for a right partial toe amputation and vascular evaluation. Unable to obtain further family history other than what is currently documented due the patient's mental status and confusion.? No family is available at bedside currently. In the emergency room the patient was afebrile and her vital signs were fairly unremarkable.? Initial laboratory evaluation revealed a marked leukocytosis with WBC of 21.7, worsened anemia with a hemoglobin of 8.3 compared to prior studies, and a platelet count of 134, although this is up from previous studies.? Initial chemistries revealed a mild hyponatremia with a sodium of 131, elevated BUN at 74, creatinine of 2.66 (unknown baseline at this time, but possibly 1.8 - 2 based on our labs), glucose was 491.? She did not have an anion gap and her bicarb was 22.? Procalcitonin was mildly elevated at 0.87.? ESR, CRP, and CK levels are currently pending and were added on by me.? Urinalysis showed trace glucose, but no leuk esterase or nitrite.? There was 1-5 wbc's, a few urine bacteria and the specimen was sent for culture.? COVID-19 testing was negative. Discharge Providers Provider Date of admission: 12/18/20 16:20 Discharge Date: 12/23/20 Primary care physician: Ary Denton PA-C Consults: 12/18/20 18:19 Consult to Discharge Planning Routine Comment: 12/18/20 23:15 Consult to [employer]ER - [place] Routine Comment: req. more care then family can provide. [employer] Consult: APS/CPS Crisis Referral End of Life/Goal Care Dis 12/19/20 06:56 Consult to Respiratory Therapy NOW Comment: Physician Instructions: Evaluate and treat 12/19/20 13:47 Consult to Speech Therapy Evaluate & Treat Comment: Swallow Evaluation - coughs with thin liquid Physician Instructions: Evaluate and treat 12/22/20 09:28 Consult to Hospice Referral Routine Comment: Discharge provider: David Lutz MD Summary Hospital Course Discharge Diagnosis: 1. Sepsis secondary to right leg cellulitis with acute metabolic encephalopathy 2. Acute hypoxemic respiratory failure 3. ISMAEL on CKD, s/p kidney transplant 4. Type 1 Diabetes on insulin, with hyperglycemia 5. Acute anemia, large back hematoma 6. HTN 7. Hyperlipidemia 8. Hypothyroidism 9. Dementia Hospital Course: Ms. Felix initially came to the hospital after being found down. She was found to have sepsis with concern for cellulitis with initial WBC 21.7. She also possibly had a pneumonia which caused her respiratory failure. In addition she had ISMAEL on CKD thought secondary to sepsis. She was found to have dropping hemoglobin, and workup found a large hematoma in her back, likely traumatic from fall. She did require 2U PRBC. Initially she had some improvement in her hemodynamics on broad spectrum antibiotics so this was narrowed to cefepime. However, clinicially overall she continued to have worsening renal failure and was nearing the point of possibly needing dialysis. Even prior to admission, per family patient was struggling at home, and had a poor quality of life. She was a DNR/DNI, would never want dialysis, would not want pressors or other heroic measures. She continued to decline looking in clear discomfort with waning mental status. Family wanted to take patient home with hospice and focus on comfort care and she was discharged to home with family per her wishes Exam Vital Signs (past 8 hours): Oxygen Delivery Method Room Air Oxygen Flow Rate 0 Narrative Exam Narrative: GEN:? Chronically ill-appearing, comfortable SKIN: diffuse bruising. RLE circumferential erythema and skin thickening over the calf. coccyx bruising. erythema and swelling on the left buttock PULM: coarse breath sounds bilaterally ABD: soft, mild diffuse tenderness MUSCULOSKELETAL: Diffuse tenderness with palpation, hypersensitivity. EXTREMITIES: R hallux partial amputation well healed, small painful ulcers on toes without active infection. Left 1st and 3rd toe partial amputation, stitches in place, well healing. NEUROLOGIC: Lethargic, fatigued Objective Labs Result Diagrams: 12/22/20 10:06 12/22/20 10:06 [facility] Medical History ISMAEL (acute kidney injury) Cellulitis Dementia Diabetes type 2, uncontrolled Diarrhea Essential hypertension Hypertriglyceridemia Hypothyroid Surgical History H/O right mastectomy Kidney transplant recipient Family History Father Old age Other Renal failure Social History household members: children and none Smoking Status: Never smoker Discharge Plan Discharge Plan Patient Disposition: Hospice - Home Provider Discharge Comment: Ms. Felix came in to the hospital with multiple medical issues. She was found on the ground. She was found to have an infection and treated with antibiotics. She was found to have severe kidney injury. She was found to have bleeding in her back. She was very confused and uncomfortable. Discussion was had with family who noted that she had been clear with her goals of care and would not want heroic measures. She would want to be with family. She was prioritized to keep her comfortable and discharged with hospice to home. Nursing Discharge Comment: We have been giving oral medication in a carrier such as applesauce or pudding. It makes taking her medication much easier. Levni catheter has been left in for comfort. The hospice nurse can show you how to empty as needed daily. We have been keeping her left foot elevated off the bed, this has helped with her pain. Discharge orders & Medications Prescriptions: New lorazepam [Ativan] 1 mg tablet 1 mg PO Q4-6H PRN (Reason: anxiety) Qty: 30 RF: 0 hydromorphone 1 mg/mL liquid 2 mg PO Q4-6H PRN (Reason: pain) Qty: 50 RF: 0 Continued acetaminophen 325 mg Tablet 325 mg PO PRN PRN (Reason: pain) Qty: 0 RF: 0 tacrolimus [Prograf] 1 MG capsule 2 mg PO BID Qty: 0 RF: 0 prednisone 5 MG tablet 5 mg PO DAILY Qty: 0 RF: 0 levothyroxine 25 mcg tablet 50 mcg PO DAILY RF: 0 oxycodone 5 mg tablet 10 mg PO TID PRN (Reason: Pain (Scale Score 7-10)) RF: 0 sertraline 25 mg tablet 25 mg PO DAILY RF: 0 metoprolol succinate 25 mg tablet extended release 24 hr 25 mg PO BID RF: 0 Discontinued Lantus U-100 Insulin 100 UNIT/1 ML solution 45 unit SQ DAILY Qty: 0 RF: 0 aspirin 81 MG tablet,delayed release (DR/EC) 81 mg PO DAILY Qty: 0 RF: 0 calcium carbonate 500 mg calcium (1,250 mg) Tablet 500 mg PO DAILY Qty: 0 RF: 0 nitrofurantoin macrocrystal 50 MG capsule 50 mg PO DAILY Qty: 0 RF: 0 pravastatin 20 mg tablet 20 mg PO DAILY RF: 0 furosemide 20 mg tablet 60 mg PO BID RF: 0 icosapent ethyl [Vascepa] 1 gram capsule 1 g PO BID RF: 0 insulin lispro [Humalog U-100 Insulin] 100 unit/mL solution 15 unit SUBCUT AC RF: 0 oxycodone [OxyContin] 10 mg Tablet,Oral Only,Ext.Rel.12 Hr 10 mg PO BEDTIME RF: 0 clopidogrel [Plavix] 75 mg Tablet 75 mg PO DAILY RF: 0 amlodipine 5 mg Tablet 5 mg PO DAILY RF: 0 Medication counseling provided by Pharmacist: Yes Follow up/Referrals: Ary Denton PA-C [Primary Care Provider] - Diet/Activity/Treatments Diet: Diet as Tolerated Visit Report/Discharge Packet Instructions: DI for Urinary Tract Infection (UTI), How to Care for Your Levin Catheter -- Female, DI for Sepsis -- Adult Discharge Data Primary Care Provider: Ary Denton [facility] [place] The patient has current or prior documentation of left ventricular ejection fraction (LVEF) less than 40%, or moderate or severely depressed left ventric ular systolic function.: No
== END 2020-12-23 13:48 | disposition hospice, home (50) | DRG 871 ==
LOC: ED 16:19 → AC 16:21
PROVIDERS: Internal Medicine; Admitting Provider Internal Medicine; Emergency Provider Emergency Medicine; PCP Physician Assistant; Referring Provider Emergency Medicine; Visit Provider Internal Medicine
DX: A41.9 Sepsis, unspecified organism (principal); J96.01 Acute respiratory failure with hypoxia; G93.41 Metabolic encephalopathy; N17.9 Acute kidney failure, unspecified; Z94.0 Kidney transplant status; D62 Acute posthemorrhagic anemia; R65.20 Severe sepsis without septic shock; L03.031 Cellulitis of right toe; D69.6 Thrombocytopenia, unspecified; F03.90 Unspecified dementia, unspecified severity, without behavioral disturbance, psychotic disturbance, mood disturbance, and anxiety; E10.65 Type 1 diabetes mellitus with hyperglycemia; E10.22 Type 1 diabetes mellitus with diabetic chronic kidney disease; S30.0XXA Contusion of lower back and pelvis, initial encounter; X58.XXXA Exposure to other specified factors, initial encounter; E78.1 Pure hyperglyceridemia; E03.9 Hypothyroidism, unspecified; F32.A Depression, unspecified; I12.9 Hypertensive chronic kidney disease with stage 1 through stage 4 chronic kidney disease, or unspecified chronic kidney disease; N18.9 Chronic kidney disease, unspecified; Z20.822 Contact with and (suspected) exposure to COVID-19; Z79.4 Long term (current) use of insulin; Z66 Do not resuscitate; Z51.5 Encounter for palliative care
CPT/HCPCS: 36415; 36430; 36600; 71045; 73590; 74176; 76770; 80048; 80053; 80202; 81001; 82550; 82805; 82962; 83036; 83540; 83550; 83605; 83690; 83735; 84100; 84145; 85014; 85018; 85025; 85027; 85651; 86140; 86850; 86900; 86901; 87040; 87077; 87086; 87635; 92610; 93005; 93010; 94760; 96361; 96365; 99284; C9803; P9016; C9113; J0692; J1170; J1650; J1815; J1940; J2543; J7507